=== PATIENT | female | born 1960 | race Caucasian/White ===

== ENCOUNTER 2019-06-13 05:50 | Observation (INO) ==
--- NOTE | 2019-06-09 09:59 | Anesthesiology Consultation ---
Date of Service June 09, 2019 Assessment & Plan (1) Encounter for pre-operative examination: Chart Review Chart Review: Acceptable Risk for Surgery and Patient seen in Pre Admission Testing Teaching & Discussion Instructed NPO after midnight before surgery, except medications with 15 cc of water. Medication instructions provided according to the PAT guidelines. History Surgery Operation Date: 06/13/19 07:30 Proposed Procedures p Abdominoplasty with Brachioplasty - Katya Parks MD Height/Weight Height: 5 ft 6 in Weight: 65.2 kg Allergies Allergy/AdvReac Type Severity Reaction Status Date / Time bupropion [From Wellbutrin] AdvReac suicidal Verified 05/30/19 08:53 Medications Home Medications Medication Instructions Recorded Confirmed Last Taken sertraline 25 mg tablet 25 mg PO QPM 05/26/19 05/30/19 Unknown Bone Broth 1 dose PO DAILY 05/30/19 05/30/19 Unknown Thorp-3 1 dose PO DAILY 05/30/19 05/30/19 Unknown multivitamin 1 tab PO DAILY 05/30/19 05/30/19 Unknown Past Medical History Medical History Anxiety Irritable bowel syndrome with diarrhea Exercise / Class Metabolic Activity 1 > 8 Run/Swim/Ski/Tennis (works out 6 days per week) Past Family History Family History Other No family history of adverse response to anesthesia Past Surgical History Surgical History History of cholecystectomy History of colonoscopy History of esophagogastroduodenoscopy (EGD) History of gastric bypass 8yrs ago, previously dx with ALYSSA, resolved with wt loss. Past Anesthesia History No Hx of Anesthesia Complications and No Family Hx of Anesthesia Complications History of PONV No Hx of PONV and No Hx of Motion Sickness Social History Smoking Status: Former smoker Do You Dip or Chew Tobacco: No Smoking End Date: quit 20 years ago Hx Alcohol Use: Yes alcohol intake frequency: holidays/special occasions only Hx Substance Use: Yes substance use type: marijuana Last Used Substance Other:: 3 weeks ago Review of Systems Pt denies any recent chest pain, shortness of breath, palpitations, cough, fever or URI. Physical Exam Vital Signs BP: 117/63 P: 58bpm SPO2: 98% RA T: 98.1 F R: 156 ENMT Mouth: + dental restorations (upper L implant); no chipped teeth and no loose teeth Thyromental Distance: > or= 3.5 Finger Breadths (3.5) Mallampati Class: I Neck normal visual inspection and + limited neck extension Respiratory normal respiratory effort Auscultation: lungs clear to auscultation bilaterally Cardiovascular Rate/Rhythm: regular rate and regular rhythm Heart Sounds: no murmur Extremities: no edema Testing Laboratory Results 06/09/19 WBC: 4.58 H/H: 12.8/39.6 PLATELETS: 238 SODIUM: 143 POTASSIUM: 4.0 CHLORIDE: 110 CO2: 29 BUN: 23 CREATININE: 0.59 GLUCOSE: 86 PT: 10.7 PTT: 25.4 INR: 1.0 Electrocardiogram Date: 06/09/19 Findings: + SB @ (58bpm)
--- NOTE | 2019-06-09 10:02 | PAT Medication Instructions ---
Medication Instructions Date of Service June 09, 2019 Home Medications sertraline 25 mg tablet 25 mg PO QPM Bone Broth 1 dose PO DAILY Bethany-3 1 dose PO DAILY multivitamin 1 tab PO DAILY STOP taking 2 weeks before surgery If surgery is within 2 weeks, stop taking as soon as possible. Bone Broth 1 dose PO DAILY Bethany-3 1 dose PO DAILY multivitamin 1 tab PO DAILY Take evening before surgery sertraline 25 mg tablet 25 mg PO QPM *THEN NOTHING TO EAT OR DRINK AFTER MIDNIGHT* Other Notes If you have any questions please call us at [phone] or [phone] or [phone] or [phone]
--- NOTE | 2019-06-10 08:15 | Electrocardiogram Report ---
Test Reason : Blood Pressure : / mmHG Vent. Rate : 058 BPM Atrial Rate : 058 BPM P-R Int : 164 ms QRS Dur : 076 ms QT Int : 416 ms P-R-T Axes : 036 066 065 degrees QTc Int : 408 ms Sinus bradycardia Otherwise normal ECG No previous ECGs available Confirmed by Aravind Marin ([id number]) on 06/09/2019 5:43:52 PM Referred By: Katya Parks Confirmed By:Rob Marin
[2019-06-13] MEDS ORDERED: LR 15ML/HR IV SCH (06:00)
[2019-06-13] MEDS ORDERED: CEFAZOLIN 2000MG 2,000 MG/15 ML SYR IV SCH (06:00)
[2019-06-13] MEDS ORDERED: ROCURONIUM BROMIDE 10 MG/ML 5 ML VIAL ONE ×9 (06:53→13:19)
[2019-06-13] MEDS ORDERED: fentaNYL citrate 100 MCG/2 ML VIAL ONE ×3 (06:53→13:52)
[2019-06-13] MEDS ORDERED: MIDAZOLAM HCL 1 MG/ML 2ML VIAL ONE (06:53)
[2019-06-13] MEDS ORDERED: ONDANSETRON INJ 2 MG/ML 2 ML VIAL ONE ×2 (06:53→08:18)
[2019-06-13] MEDS ORDERED: DEXAMETHASONE SOD INJ 4 MG/ML VIAL ONE ×2 (06:53→08:18)
[2019-06-13] MEDS ORDERED: PROPOFOL IV EMULSION 10 MG/ML 20 ML VIAL IV ONE ×2 (06:53→13:51)
[2019-06-13] MEDS ORDERED: GLYCOPYRROLATE 0.2 MG/ML VIAL ONE (06:53)
[2019-06-13] MEDS ORDERED: LIDOCAINE HCL 2% 2 ML VIAL/AMP(20MG/ML) INFIL ONE (06:53)
[2019-06-13] MEDS ORDERED: NEOSTIGMINE METHYLSULFATE 5 MG/5 ML SYR ONE (06:53)
[2019-06-13] MEDS ORDERED: PHENYLEPHRINE 100MCG/ML 5ML SYR IV PRN (07:01)
[2019-06-13] MEDS ORDERED: LABETALOL HCL IV 5 MG/ML 20ML IV PRN (07:01)
[2019-06-13] MEDS ORDERED: MEPERIDINE HCL 25 MG/ML CARP IV PRN (07:01)
[2019-06-13] MEDS ORDERED: ATROPINE SULFATE 0.1 MG/ML 10ML SYR IV PRN (07:01)
[2019-06-13] MEDS ORDERED: fentaNYL citrate 100 MCG/2 ML VIAL IV PRN (07:01)
[2019-06-13] MEDS ORDERED: HYDROmorphone INJ 1 MG/ML SYRINGE IV PRN (07:01)
[2019-06-13] MEDS ORDERED: ePHEDrine sulfate 50 MG/ML AMP IV PRN (07:01)
[2019-06-13] MEDS ORDERED: ONDANSETRON INJ 2 MG/ML 2 ML VIAL IV PRN ×2 (07:01→14:43)
[2019-06-13] MEDS ORDERED: LIDOCAINE/EPINEPHRINE 1% 20 ML VIAL ONE (07:14)
[2019-06-13] MEDS ORDERED: LIDOCAINE HCL 1% 20 ML VIAL ONE (07:14)
[2019-06-13] MEDS ORDERED: EPINEPHrine INJ 1 MG/ML AMP ONE (07:14)
[2019-06-13] MEDS ORDERED: BUPIVACAINE 0.25% 30 ML VIAL ONE (07:15)
--- NOTE | 2019-06-13 07:16 | History & Physical Bridge Note ---
Date of Service June 13, 2019 History & Physical Bridge Note I have examined the patient, reviewed the History & Physical and in the interval since the performance of the History & Physical I have noted the following changes of clinical significance: no changes noted
[2019-06-13] MEDS ORDERED: SCOPOLAMINE 1.5 MG TDSY ONE (07:19)
[2019-06-13] MEDS ORDERED: SCOPOLAMINE 1.5 MG TDSY TD ONE (07:20)
[2019-06-13] MEDS ORDERED: HYDROmorphone INJ 2 MG/ML SYR/VIAL ONE (10:34)
[2019-06-13] MEDS ORDERED: ePHEDrine sulfate 50 MG/ML SYR ONE (11:32)
[2019-06-13] MEDS ORDERED: CEFAZOLIN 2000MG 2,000 MG/15 ML SYR IV STA (13:22)
[2019-06-13] MEDS ORDERED: CEFAZOLIN 250 MG/ML 1 GM VIAL ONE (13:22)
[2019-06-13] MEDS ORDERED: PHENYLEPHRINE 100MCG/ML 5ML SYR ONE (13:24)
[2019-06-13] MEDS ORDERED: ACETAMINOPHEN 1000 MG/100 ML IV IV ONE (14:29)
--- NOTE | 2019-06-13 14:31 | Post Operative Brief Note ---
Immediate Post Op Note v1 Date of Surgery June 13, 2019 Pre & Post Diagnosis Operation Date: 06/13/19 07:30 Pre-Op Diagnosis: Encounter for Cosmetic Surgery Post-Op Diagnosis: Encounter for Cosmetic Surgery I identified the patient and participated in the time-out.: Yes Procedure Operation Date: 06/13/19 07:30 Actual Procedures p Abdominoplasty with Bilateral Brachioplasty - Katya Parks MD Surgeon Katya Parks MD Telegraph Repeater Technician Tiny Eagle PA-C Estimated Blood Loss 50 Findings Consistent with Post-Op Diagnosis Drains Nash Catheter (16fr nash catheter placed by Lashae Orozco RN, without difficulty; nash demonstrates clear yellow urine. Output measured and recorded by anesthesia.) and Terrence-Dietrich Drain (15fr round x4)
[2019-06-13] MEDS ORDERED: PROMETHAZINE HCL 12.5 MG in SODIUM CHLORIDE 0.9% 50 ML IV PRN (14:43)
[2019-06-13] MEDS ORDERED: LORazepam 0.5 MG TAB PO PRN (14:43)
[2019-06-13] MEDS ORDERED: MoRPHine SULFATE 4 MG/ML 1 ML CARP\\VIAL IV PRN ×2 (14:43→15:02)
[2019-06-13] MEDS ORDERED: MoRPHine SULFATE 2 MG/ML CARP IV PRN (14:43)
[2019-06-13] MEDS ORDERED: OXYCODONE/ACETAMINOPHEN 5mg/325mg TAB PO PRN (14:43)
[2019-06-13] MEDS ORDERED: DiphenhydrAMINE HCL 50 MG/ML VIAL IV PRN (14:43)
--- NOTE | 2019-06-13 14:57 | Operative Report ---
PG Post Operative Report Pre & Post Diagnosis Operation Date: 06/13/19 07:30 Pre-Op Diagnosis: Encounter for Cosmetic Surgery Post-Op Diagnosis: Encounter for Cosmetic Surgery I identified the patient and participated in the time-out.: Yes Procedure Operation Date: 06/13/19 07:30 Actual Procedures p Abdominoplasty with Bilateral Brachioplasty(Bilateral) - Katya Parks MD Surgeon Katya Parks MD Can Piler Tiny Eagle PA-C Estimated Blood Loss 50 Findings Consistent with Post-Op Diagnosis Specimens none Description of Procedure Risks, benefits, and alternatives of the procedure were explained to the patient who agreed and signed consent. She was identified and marked in the preoperative holding area. She was brought to the operating room where she was positioned supine and placed under general anesthesia without incident. Anguiano catheter was placed. Surgical site was prepped and draped sterilely. A time-out procedure was performed. I reassessed my markings which included a lower horizontal abdominal incision with the midportion 7 cm above the vulvar commissure. Incision was marked bilaterally to the ASIS. I began by injecting 1% lidocaine with epinephrine along the planned incision. The lower abdominal incision was made using a 15- blade scalpel to incise epidermis and superficial dermis followed by electrocautery to incise deep dermis, subcutaneous fat, Flash's fascia down to the abdominal wall. Care was taken to bevel superiorly in order to avoid encountering the inguinal region. Electrocautery was used to elevate the anterior abdominal skin flap ligating the perforating vessels with 3-0 Vicryl ties and electrocautery. Dissection was carried up to the level of the umbi licus in the midline. At this point, a 15-blade scalpel was used to circumscribe the umbilicus. A vertical midline incision was then made from the incision to the umbilicus and divided in the midline using electrocautery. The umbilicus was then dissected out using electrocautery down to abdominal wall. The umbilical stalk appeared viable throughout the procedure. Dissection was continued superiorly to the xyphoid process, narrowing dissection above the umblicus. Plication of the rectus diastases was performed using 0 Prolene nitdky-cw-vgaay sutures both above and below the umbilicus. A running 0 Prolene suture was used to imbricate the vtlxhv-ap-bitpm sutures and reinforced the repair both above and below the umbilicus. At this point, the bed was flexed and the mid portion of the superior skin flap was inset above the mons pubis using 2-0 Vicryl suture. Skin flaps were marked for excision. A 15-blade scalpel was used to make these incisions and the incision was deepened through dermis, subcutaneous fat, Flash's fat using electrocautery. A 15 Uzbek Pola drains were placed in the wound bed and brought out through a separate stab incision in the mons pubis. The drains were sutured into place using 3-0 nylon. The umbilicus was brought out through an inverted triangular incision in the abdominal wall. This was performed using a 15-blade scalpel. Prior to closure, a total of 10 mL of 0.25% Marcaine plain were injected into the fascia as well as along the incisions. Wound closure was then begun lateral to medial using 2-0 Vicryl Flash's fascia sutures, 2-0 Vicryl deep dermal sutures, 2-0 PDO running superficial Quill suture, 3-0 Monocryl running subcuticular suture. Umbilicus was brought out through the inverted triangle incision and was sutured into place using 4-0 chromic half buried horizontal mattress sutures. The umbilicus was dressed using Xeroform and the incision was dressed using Dermabond Prineo followed by dry dressings and an abdominal binder. Attention was then turned to the brachioplasty portion of the procedure. Markings were reassessed. I considered whether to perform liposuction to the posterior aspect of the arm, but it appeared she mostly had skin laxity, minimal excess adiposity. Lesions were marked just above the bicipital groove and at the dome of the axilla, extending down the lateral chest wall to address skin laxity. 1% lidocaine with epinephrine was used to anesthetize the planned incisions. I began with the left arm. 15 blade scalpel made the upper incision through skin which was deepened using electrocautery through dermis, simultaneous fat, superficial fascia. Dissection of the skin flap was performed above the deep fascia leaving some subcutaneous tissue to protect the median antebrachial cutaneous nerve at the elbow. Similarly, more shallow dissection was performed in the axilla to protect the lymphatics and axillary structures. The incision in the axilla was planned in an L-shape, similar to a Jim incision. The apex of the flap was inset into the axillary dome using 0 Nurolon interrupted sutures to tack the superficial fascial system to the clavicopectoral fascia. Skin resection was then performed in segmental fashion in order to allow for maximal resection with minimal skin tension. This was performed by dividing the skin flaps in segments and tailor tacking these areas to allow for excision. The wound was then temporarily stapled in sequential fashion the arm and along the lateral chest wall. Patient preferred not to have a lateral chest wall incision, however, I did need to extend the anteriormost aspect of the incision into the axilla for about 4 to 5 cm in order to allow for greatest skin resection and to treat the standing cutaneous deformity which was present after reapproximating the incision along the bicipital groove. Once I was satisfied with the skin resection and temporary closure of the left arm, similar procedure was undertaken on the right side. Should be noted the patient had additional excess skin of the left axilla and excess skin of the right arm which was also noted by the patient preoperatively. Once I was satisfied with the skin resection on the left side, temporary closure was performed. MAHESH drains were placed into both wound beds prior to closure. They were sutured into place using 3-0 nylon suture. Quarter percent Marcaine plain was instilled into the drains bilaterally. Simultaneous wound closure was then undertaken on both arms using 2-0 Vicryl superficial fascial sutures, 2-0 Vicryl deep dermal sutures, 3- 0 PDO Quill suture, which was performed in 2 segments so as not to cross the axilla with one continuous running suture. 3-0 Monocryl suture was then run in the subcuticular plane, also in 2 segments. Dermabond Prineo was applied to both incisions. Xeroform was placed around the drains. Dry dressings followed by Channing bandages were placed to the arms, surgical bra to provide some compression to the lateral chest wall. Following the procedure, there was excellent symmetry and contour of both arms. Procedure was tolerated well. The patient was awakened and transferred to the recovery room in satisfactory condition. Tiny Eagle PA-C was present and scrubbed thoughout the entire procedure and was instrumental in retracting, achieving hemostasis and assisting in simultaneous wound closure. I attest to the content of the Intraoperative Record and any orders documented therein. Any exceptions are noted below.
--- NOTE | 2019-06-13 15:26 | Anesthesiology Progress Note ---
Date of Service June 13, 2019 Anesthesia Post Procedure Vital Signs Vital Signs: Temp Pulse Pulse Resp BP BP Pulse Ox 06/13/19 15:15 36.9 C 78 18 112/70 97 06/13/19 15:05 70 13 155/72 H 98 06/13/19 14:55 76 22 119/71 99 06/13/19 14:45 36.5 C 82 18 130/81 100 06/13/19 06:16 36.7 C 65 18 134/93 97 Transfer of Care Handoff Completed per policy Notes Mental Status: alert / awake / arousable Patient Amnestic to Procedure: Yes Nausea / Vomiting: adequately controlled Pain: adequately controlled Airway Patency, RR, SpO2: stable & adequate BP & HR: stable & adequate Hydration State: stable & adequate Anesthetic Complications: no major complications apparent
[2019-06-13] MEDS: D5W AND 1/2NSS + 20MEQ KCL 20 MEQ/1,000 ML BAG IV SCH (16:42)
[2019-06-13] MEDS: CHECK SCOPOLAMINE PATCH PLACEMENT SCH ×3 (16:49→23:42)
[2019-06-13] MEDS: CEFAZOLIN 2000MG 2,000 MG/15 ML SYR IV SCH (17:47)
[2019-06-13] MEDS ORDERED: COUGH DROP (SUGAR FREE) LOZ 24 LOZ/1 BOX BUCCAL ONE (20:52)
[2019-06-13] MEDS ORDERED: SERTRALINE HCL 50 MG TABLET PO SCH (21:00)
[2019-06-13] MEDS: OXYCODONE/ACETAMINOPHEN 5mg/325mg TAB PO PRN (23:40)
[2019-06-14] MEDS: CEFAZOLIN 2000MG 2,000 MG/15 ML SYR IV SCH (00:02)
[2019-06-14] MEDS: D5W AND 1/2NSS + 20MEQ KCL 20 MEQ/1,000 ML BAG IV SCH (03:49)
[2019-06-14] MEDS: OXYCODONE/ACETAMINOPHEN 5mg/325mg TAB PO PRN (06:41)
--- NOTE | 2019-06-14 08:12 | Surgery Progress Note ---
Date of Service June 14, 2019 Assessment & Plan (1) Encounter for cosmetic surgery: Doing well s/p abdominoplasty and bilateral brachioplasty. D/C home today, f/u in office tomorrow. Subjective Patient is resting comfortably and voices no concerns. Physical Exam Constitutional: WD/WN, vitals as above no acute distress Skin: + incision (dressings in place, drains with serosang output) Results & Data Vital Signs (Past 12 Hours) Vital Signs Temp Pulse Pulse Resp BP BP Pulse Ox 06/14/19 07:36 37.4 C 71 20 116/77 97 06/14/19 03:53 36.9 C 73 16 102/67 96 06/13/19 23:06 37.0 C 72 16 107/71 94 PG Care Time/CCT Total # of Minutes Spent Total Time Spent with Patient: Total time spent is greater than 50% in coordination of care (as documented) at patient's floor/unit and/or counseling patient:
[2019-06-14] MEDS ORDERED: MULTIVITAMIN TAB PO SCH (09:00)
[2019-06-14] MEDS ORDERED: ENOXAPARIN INJ 40 MG/0.4 ML SYR SQ SCH (09:00)
[2019-06-14] MEDS: CHECK SCOPOLAMINE PATCH PLACEMENT SCH (09:04)
--- NOTE | 2019-06-14 11:04 | Anesthesiology Progress Note ---
Date of Service June 14, 2019 Anesthesia Post Procedure Vital Signs Vital Signs: Temp Pulse Pulse Pulse Resp BP BP 06/14/19 08:47 37.4 C 71 20 116/77 06/14/19 07:36 37.4 C 71 20 116/77 06/14/19 03:53 36.9 C 73 16 102/67 06/13/19 23:06 37.0 C 72 16 107/71 06/13/19 19:38 36.6 C 83 16 110/74 06/13/19 17:59 74 16 97/65 L 06/13/19 17:02 36.3 C L 77 16 94/63 L 06/13/19 16:30 36.3 C L 77 12 98/66 L 06/13/19 16:00 36.8 C 91 H 16 100/67 06/13/19 15:45 36.9 C 71 16 98/66 L 06/13/19 15:35 36.9 C 85 15 103/59 L 06/13/19 15:25 36.9 C 68 18 102/61 06/13/19 15:15 36.9 C 78 18 112/70 06/13/19 15:05 70 13 155/72 H 06/13/19 14:55 76 22 119/71 06/13/19 14:45 36.5 C 82 18 130/81 Pulse Ox 06/14/19 08:47 97 06/14/19 07:36 97 06/14/19 03:53 96 06/13/19 23:06 94 06/13/19 19:38 97 06/13/19 17:59 95 06/13/19 17:02 96 06/13/19 16:30 95 06/13/19 16:00 96 06/13/19 15:45 97 06/13/19 15:35 98 06/13/19 15:25 98 06/13/19 15:15 97 06/13/19 15:05 98 06/13/19 14:55 99 06/13/19 14:45 100 Pain Intensity Right Arm: Pain Intensity: 5 Notes Mental Status: alert / awake / arousable and participated in evaluation Patient Amnestic to Procedure: Yes Nausea / Vomiting: adequately controlled Pain: adequately controlled Airway Patency, RR, SpO2: stable & adequate BP & HR: stable & adequate Hydration State: stable & adequate Anesthetic Complications: no major complications apparent
--- NOTE | 2019-06-14 12:15 | Discharge Summary ---
Date of Service June 14, 2019 Admission HPI Per Admitting Provider see admission H&P Admission Exam Per Admitting Provider see admission H&P Principal Diagnosis encounter for cosmetic surgery Discharge Exam Constitutional WD/WN, vitals as above no acute distress Skin + incision (dressings in place, drains with serosang output) Discharge Data Allergies Allergy/AdvReac Type Severity Reaction Status Date / Time bupropion [From Wellbutrin] AdvReac suicidal Verified 06/13/19 06:06 Procedures Performed Operation Date: 06/13/19 07:30 Actual Procedures p Abdominoplasty with Bilateral Brachioplasty(Bilateral) - Katya Parks MD Hospital Course (1) Encounter for cosmetic surgery: Patient presented to [facility] with history of excess skin of her arms adn abdomen. She was taken to the OR and underwent bilateral brachioplasty and abdominoplasty. There were no intraoperative complications. She was taken to recovery and transferred to med/surg for observation. On POD#1, she was feeling well. She was tolerating a regular diet and ambulating. She was able to void after catheter was removed. On exam, her vitals were stable. Her incisions were CDI. Her drains had appropriate output. She was discharged home with instructions to follow-up in the office in one day. Total Time Total Time Spent Total Time Spent (In Minutes): 15 Total Time Includes: Examination of the Patient, Discharge Planning, Medication Reconciliation and Communication With Other Providers Discharge Plan Discharge Items Patient Disposition: Home - Self-Care Reason For Visit: Encounter for Cosmetic Surgury Discharge Diagnosis: s/p abdominoplasty and brachioplasty Activity: As commented below Non-emergency contact: Surgeon Call non-emergency contact if: you have any medication questions, your pain is not controlled, you have a fever, your wound has increased redness and your wound has increased drainage Follow-up/Referrals: Hugh Palencia MD [Primary Care Provider] - Diet: Regular Addtl Attending Provider Instructions: ACTIVITY RECOMMENDATIONS: __Normal activities _x_No bending, lifting or straining. Do no stand straight until it is easily comfortable to do so __No driving _x_Driving allowed when you are off pain medications and you feel safe _x_Walking permitted __You should have help at home for ___ days DRESSINGS: __No dressings required _x_Keep dressings dry/in place until first office visit __Remove dressings ___ and leave dressings off __Apply ice ___ days __Remove dressings and reapply garment __Apply antibiotic ointment (Bacitracin, Neosporin, etc) to wounds 3-4 times/day for 10 days BATHING: _x_Keep dressings dry _x_Sponge bathing permitted __Showering permitted _x_No swimming, hot tubs or soaking in a tub MEDICATIONS: Resume previous medications unless instructed otherwise by your surgeon. _x_Do not use aspirin, Motrin, Advil or Ibuprofen as these may promote bleeding. Please use Tylenol. _x_Prescription(s) provided: pain medication was provided at your pre-op H&P office visit OTHER INSTRUCTIONS: _x_Record drain output 2-3 times per day. Drains are ready to be removed with output is 10cc/24 hours for 2 days SPECIAL CARE INSTRUCTIONS: * It is normal to have a mild fever after surgery. If your temperature is higher than 101.5 degrees F, please call the office at [phone]. * Constipation is a typical side effect of pain medication. An etwm-qcl-yqxwehu stool softener will help relieve this. * Leaking around surgical drains may occur and should not cause concern. Sometimes these drains become clogged. If this happens, remove the bulb and milk the clot out of the tube, then replace the bulb. * Drainage from wounds after liposuction is normal and should be expected. Garments will become soiled. You should protect furniture and bedding. This drainage should mostly subside within 2-3 days. Leave garments in place unless instructed to remove them. * If you have unusual drainage from a wound or are concerned you have an infection or have any questions or concerns, please call the office at [phone]. FOLLOW UP VISIT: If not already scheduled, please call the office, , when you return home after surgery to schedule an appointment to be seen in __1_ days. Pending Studies at Discharge: No Stand-Alone Forms: My [employer], Smoking Cessation Medications and DC Order Prescriptions: Continued sertraline [Zoloft] 25 mg tablet 25 mg PO QPM RF: 0 multivitamin Tablet 1 tab PO DAILY RF: 0 Bone Broth 1 dose PO DAILY RF: 0 melatonin 10 mg Capsule 10 mg PO HS PRN (Reason: Sleep) RF: 0 Discontinued Rough And Ready-3 1 dose PO DAILY RF: 0 No Action oxycodone-acetaminophen [Endocet] 5-325 mg tablet 1 tab PO Q4H PRN (Reason: pain) Qty: 18 RF: 0 Discharge Orders: Discharge Order (Routine); Ordered 06/14/19 Ordered By: Erma Diggs Admission Data Admit Date/Time: 06/13/19 15:01 Attending Provider: Katya Parks Admit Provider: Katya Parks Primary Care Provider: Hugh Palencia Other Interventions: Discharge Summary Assessment (RN) Last Done: 06/14/19 08:47 DC Date/Time DO NOT enter until pt leaves facility: 06/14/19 10:29
== END 2019-06-14 10:29 | disposition home or self-care (01) ==
LOC: 3N 05:50 → ASU 05:50

== ENCOUNTER 2023-11-03 14:26 | Inpatient (IN) ==
[2023-11-03 15:13] LABS: Basophils # (auto) 0.04 K/uL (0.00-0.20); Basophils % (auto) 0.5 %; Hematocrit (blood only) 36.6 % (37.0-47.0); Hemoglobin 11.6 g/dl (12.0-16.0); Immature Granulocytes # (auto) 0.03 K/uL (0.01-0.20); Immature Granulocytes % (auto) 0.4 %; Lymphocytes # (auto) 0.81 K/uL (1.20-3.40); Lymphocytes % (auto) 9.8 %; Mean Corpuscular Hemoglobin 22.4 pg (25.0-34.0); Mean Corpuscular Hgb Conc 31.7 g/dL (32.0-36.0); Mean Corpuscular Volume 70.8 fL (80.0-100.0); Mean Platelet Volume 9.8 fL (9.4-12.4); Monocytes # (auto) 0.19 K/uL (0.11-0.59); Monocytes % (auto) 2.3 %; Neutrophils # (auto) 7.16 K/uL (1.40-6.50); Platelet Count 453 K/uL (130-400); RDW Coefficient of Variation 18.5 % (11.5-14.5); RDW Standard Deviation 44.8 fL (36.4-46.3); Red Blood Count 5.17 M/uL (4.20-5.40); White Blood Count 8.23 K/ul (4.8-10.8)
[2023-11-03 15:24] LABS: Albumin Globulin Ratio 1.5 (0.9-2); Albumin Level 4.6 gm/dl (3.4-5.0); Bilirubin,Total 0.4 mg/dl (0.2-1.0); Calcium 9.4 mg/dl (8.6-10.3); Creatinine Clr Calc Pharmacy 101.8 ml/min; Est GFR (African American) 119.4 ml/min; Globulin 3.1 gm/dl (2.5-4.0); Potassium 3.9 mmol/L (3.5-5.1); Total Protein 7.7 gm/dl (6.0-8.3)
[2023-11-03 15:31] LABS: Troponin I High Sensitivity 3.1 pg/ml (0-14)
[2023-11-03 15:41] LABS: Partial Thromboplastin Ratio 0.9; Partial Thromboplastin Time 24 Seconds (21-31); Prothrombin Time 10.6 Seconds (9.0-12.0)
--- NOTE | 2023-11-03 15:58 | XRay Report ---
SINGLE VIEW CHEST CLINICAL HISTORY: Atypical chest pain FINDINGS: An AP upright chest radiograph is compared to study dated 01/28/2008. The cardiomediastinal silhouette is unremarkable. The lungs and pleural spaces are clear. No pneumothorax is seen. The bony thorax is grossly intact. Cholecystectomy clips are noted in the right upper quadrant. Suture materi al projects over the left upper quadrant. IMPRESSION: No active disease in the chest. ACT 112: Negative or not required by law. Electronically signed by: Bjorn Troncoso M.D. 11/03/2023 3:57 PM
--- NOTE | 2023-11-03 16:11 | Emergency Department Note ---
Impression & Plan Partial bowel obstruction, Abdominal pain, Anemia, Vomiting ED Provider Note NAME: LALA ALBERTO AGE: 63 SEX: F : 1960 ARRIVES VIA: Walk-In INFORMANT: Patient ED PROVIDER(S): Slick Restrepo DO CHIEF COMPLAINT: abdominal pain HPI: Patient is a 63-year-old female who presents the ER for epigastric abdominal pain which has been present for the past 3 days. She has had this once before but it resolved on its own. Pain has now migrated diffusely throughout the whole belly. Previous abdominal surgeries include a gastric bypass. She denies any headache or change in vision. No chest pain or shortness of breath. No dysuria, urgency, or frequency. No other exacerbating or remitting factors. ADDITIONAL HISTORY OBTAINED: Per HPI Chronic Medical/Social Conditions Affecting Care: Per HPI PAST MEDICAL HISTORY:See Below PAST SURGICAL HISTORY:See Below FAMILY HISTORY:See Below SOCIAL HISTORY:See Below HOME MEDICATIONS:See Below ALLERGIES:See Below VITALS:See Below PHYSICAL EXAMINATION: GENERAL: Sitting up in bed, alert, well appearing, well nourished, no distress, non-toxic EYE EXAM: normal conjunctiva. PERRL and EOM's grossly intact. OROPHARYNX: no exudate, no erythema, lips, buccal mucosa, and tongue normal and mucous membranes are moist NECK: supple, no nuchal rigidity, no adenopathy, non-tender LUNGS: Clear to auscultation. Normal chest wall mechanics HEART: no murmurs, S1 normal and S2 normal ABDOMEN: abdomen soft, non-tender, normo-active bowel sounds, no masses, no rebound or guarding. BACK: Back is symmetrical on inspection and there is no deformity, no midline tenderness, no CVA tenderness. SKIN: no rashes and no bruising UPPER EXTREMITIES: upper extremities are grossly normal. LOWER EXTREMITIES: No pitting edema. NEURO EXAM: Normal sensorium, cranial nerves II-XII grossly intact, normal speech, no gross weakness of arms, no gross weakness of legs. No drift. Finger to nose intact. Gross sensation intact. MEDICAL DECISION MAKING: Patient is a 63-year-old female who presents ER for the above-stated complaint. IV was established blood work was obtained. She has a history of a previous gastric bypass. Labs show no significant leukocytosis but a mild anemia 11.6. INR unremarkable. BMP along LFTs bilirubin and troponin was negative. CT abdomen pelvis shows a partial bowel obstruction. KUB was obtained and shows NG tube in place. Discussed with Dr. Melchor from [facility] he accepted the patient in transfer but notes that this does not need to occur emergently as it is nonsurgical at this time after he reviewed the images. Transfer center will not have a bed for least today and he agreed with admission to [facility]. Discussed with our surgeon Pola as well as the hospitalist for admission and close monitoring. Patient was given IV fluids morphine and Zofran. She was updated at bedside. Consults/Care Managements Discussions: Per [facility] Triage Nursing notes reviewed. Limited review of prior medical records performed Vital Signs: reviewed and remarkable for no significant abnormalities Differential diagnosis: Differential diagnoses includes but is not limited to gastritis, peptic ulcer disease, GERD, gallbladder disease, pancreatitis, small bowel obstruction, appendicitis, diverticulitis, hernia, urinary tract infection, torsion, /ectopic (if female), perforation, trauma, infectious. ER treatment provided: See below Diagnostics interpreted by me include EKG and cardiac monitoring as listed below: -Cardiac Monitoring: An order was placed for continuous cardiac monitoring. The monitor shows a rate of 80 with sinus rhythm. -ECG: none -Laboratory studies:Interpreted by me as stated above in MDM and shown below. Imaging studies: Xrays: As interpreted by me: KUB shows NG tube in place in the stomach CTs show: CT abdomen pelvis as described above Procedures:none Critical Care: None Past Med/Surg History Problem List (Updated 11/03/23 @ 21:16 by Slick Restrepo DO) Vomiting (Acute) Anemia (Acute) Abdominal pain (Acute) Partial bowel obstruction (Acute) Small bowel obstruction Facial laceration Medical History (Updated 11/03/23 @ 21:16 by Slick Restrepo DO) Cystic fibrosis carrier Irritable bowel syndrome with diarrhea Anxiety Surgical History H/O abdominoplasty (06/14/19) and brachioplasty History of cholecystectomy History of gastric bypass 8yrs ago, previously dx with ALYSSA, resolved with wt loss. History of esophagogastroduodenoscopy (EGD) History of colonoscopy Family History Other No family history of adverse response to anesthesia Social History Smoking Status: Never smoker Second Hand Exposure: Yes (as a child); Do You Dip or Chew Tobacco: No; Hx Alcohol Use: Yes Hx Substance Use: Yes Last Used Substance Other:: 3 weeks ago Preferred Language: Slovenian Communication Ability: Effective Spinner Hand Required: No Beliefs That Will Affect Care: None Current Living Situation: Spouse Feels Safe at Home: Yes Assistive Devices: None Allergies Allergies Allergy/AdvReac Type Severity Reaction Status Date / Time bupropion [From Wellbutrin] AdvReac suicidal Verified 11/03/23 17:05 Home Meds Home Medications Medication Instructions Recorded Confirmed multivitamin 1 tab PO DAILY 05/30/19 11/03/23 melatonin 10 mg capsule 10 mg PO HS PRN Sleep 06/13/19 11/03/23 alendronate 70 mg tablet 70 mg PO WK 11/03/23 11/03/23 dextroamphetamine-amphetamine ER 20 mg PO QAM 11/03/23 11/03/23 20 mg 24hr capsule,extend release escitalopram oxalate 20 mg tablet 20 mg PO DAILY 11/03/23 11/03/23 propranolol 20 mg tablet 20 mg PO .EVERY 24 HOURS PRN 11/03/23 11/03/23 Anxiety Results & Data (ED) Vital Signs Vital Signs - 24 hr 11/03/23 14:33 11/03/23 16:27 11/03/23 18:04 Temperature 36.7 C Temperature Source Temporal Artery Scan Pulse Rate 75 77 Pulse Rate [Apical] 85 Pulse Strength [Apical] Normal Respiratory Rate 18 19 Respiratory Effort / Characteristics Non-Labored Spontaneous Non-Labored Spontaneous Respiratory Depth Normal Normal Respiratory Pattern Regular Blood Pressure 140/77 Blood Pressure [Right Arm] 140/62 Blood Pressure Mean 98 Blood Pressure Mean [Right Arm] 88 Blood Pressure Position Sitting Pulse Oximetry 99 100 Oxygen Delivery Method Room Air Room Air Sepsis Recent Fever Within 48 Hours No Sepsis New/Unexplained Change in Mental Status No Sepsis Action Taken by Nursing No Action Required 11/03/23 18:05 11/03/23 20:10 11/03/23 20:16 Temperature Temperature Source Pulse Rate 82 Pulse Rate [Apical] 78 Pulse Strength [Apical] Respiratory Rate 19 Respiratory Effort / Characteristics Non-Labored Spontaneous Respiratory Depth Normal Respiratory Pattern Regular Blood Pressure Blood Pressure [Right Arm] 119/79 Blood Pressure Mean Blood Pressure Mean [Right Arm] 92 Blood Pressure Position Pulse Oximetry 100 98 Oxygen Delivery Method Room Air Room Air Sepsis Recent Fever Within 48 Hours Sepsis New/Unexplained Change in Mental Status Sepsis Action Taken by Nursing 11/03/23 21:07 Temperature Temperature Source Pulse Rate Pulse Rate [Apical] 78 Pulse Strength [Apical] Respiratory Rate 18 Respiratory Effort / Characteristics Non-Labored Spontaneous Respiratory Depth Normal Respiratory Pattern Regular Blood Pressure Blood Pressure [Right Arm] 129/77 Blood Pressure Mean Blood Pressure Mean [Right Arm] 94 Blood Pressure Position Pulse Oximetry 100 Oxygen Delivery Method Room Air Sepsis Recent Fever Within 48 Hours Sepsis New/Unexplained Change in Mental Status Sepsis Action Taken by Nursing Laboratory Data 11/03/23 14:42 11/03/23 14:42 Lab Results 11/03/23 Range/Units 14:42 WBC 8.23 (4.8-10.8) K/ul RBC 5.17 (4.20-5.40) M/uL Hgb 11.6 L (12.0-16.0) g/dl Hct 36.6 L (37.0-47.0) % MCV 70.8 L (80.0-100.0) fL MCH 22.4 L (25.0-34.0) pg MCHC 31.7 L (32.0-36.0) g/dL RDW Std Deviation 44.8 (36.4-46.3) fL RDW Coeff of Ritika 18.5 H (11.5-14.5) % Plt Count 453 H (130-400) K/uL MPV 9.8 (9.4-12.4) fL Immature Gran % (Auto) 0.4 % Neut % (Auto) 87.0 % Lymph % (Auto) 9.8 % [place] % (Auto) 2.3 % Eos % (Auto) 0.0 % Baso % (Auto) 0.5 % Neut # (Auto) 7.16 H (1.40-6.50) K/uL Lymph # (Auto) 0.81 L (1.20-3.40) K/uL [place] # (Auto) 0.19 (0.11-0.59) K/uL Eos # (Auto) 0.00 (0.00-0.50) K/uL Baso # (Auto) 0.04 (0.00-0.20) K/uL Immature Gran # (Auto) 0.03 (0.01-0.20) K/uL PT 10.6 (9.0-12.0) Seconds INR 1.0 (0.9-1.1) APTT 24 (21-31) Seconds PTT Ratio 0.9 Sodium 136 (136-145) mmol/L Potassium 3.9 (3.5-5.1) mmol/L Chloride 103 (98-107) mmol/L Carbon Dioxide 22 (21-32) mmol/L Anion Gap 11 (3-11) BUN 15 (6-23) mg/dl Creatinine 0.50 L (0.6-1.2) mg/dl Est Cr Clr Drug Dosing 101.8 ml/min Est GFR ( Amer) 119.4 ml/min Est GFR (Non-Af Amer) 103.0 ml/min BUN/Creatinine Ratio 30.0 H (10-20) Glucose 151 H (70-99(Fasting)) mg/dl Calcium 9.4 (8.6-10.3) mg/dl Total Bilirubin 0.4 (0.2-1.0) mg/dl AST 29 (13-39) U/L ALT 21 (7-52) U/L Alkaline Phosphatase 98 (34-104) U/L Troponin I High Sens 3.1 (0-14) pg/ml Total Protein 7.7 (6.0-8.3) gm/dl Albumin 4.6 (3.4-5.0) gm/dl Globulin 3.1 (2.5-4.0) gm/dl Albumin/Globulin Ratio 1.5 (0.9-2) Administered Medications Lactated Ringer's (Lr) 1,000 mls @ 100 mls/hr IV .Q10H MIKIE Stop: 11/04/23 16:44 Last Admin: 11/03/23 21:08 Dose: 100 mls/hr Documented By: KVNG Discontinued Medications Sodium Chloride (Nss) 1,000 mls @ 999 mls/hr IV .Q1H1M ONE Stop: 11/03/23 17:07 Last Infusion: 11/03/23 18:36 Dose: Infused Documented By: Admin: 11/03/23 16:20 Dose: 999 mls/hr Documented By: KVNG Ioversol (Optiray 320 100ml) 94 ml IV ONCE ONE Stop: 11/03/23 16:41 Last Admin: 11/03/23 16:40 Dose: 94 ml Documented By: GREY Morphine Sulfate (Morphine Sulfate 4 Mg/Ml 1 Ml Carp\Vial) 4 mg IV NOW STA Stop: 11/03/23 16:08 Last Admin: 11/03/23 16:21 Dose: 4 mg Documented By: KVNG Morphine Sulfate (Morphine Sulfate 10 Mg/Ml Carp/Vial) 6 mg IV NOW STA Stop: 11/03/23 17:42 Last Admin: 11/03/23 18:03 Dose: 6 mg Documented By: KVNG Ondansetron HCl (Ondansetron Inj 2 Mg/Ml 2 Ml Vial) 4 mg IV NOW STA Stop: 11/03/23 16:08 Last Admin: 11/03/23 16:18 Dose: 4 mg Documented By: KVNG Ondansetron HCl (Ondansetron Inj 2 Mg/Ml 2 Ml Vial) 4 mg IV NOW STA Stop: 11/03/23 17:42 Last Admin: 11/03/23 18:03 Dose: 4 mg Documented By: KVNG Imaging Data Radiologist's Impression: Chest X-Ray 11/03/23 14:36 SINGLE VIEW CHEST CLINICAL HISTORY: Atypical chest pain FINDINGS: An AP upright chest radiograph is compared to study dated 01/28/2008. The cardiomediastinal silhouette is unremarkable. The lungs and pleural spaces are clear. No pneumothorax is seen. The bony thorax is grossly intact. Cholecystectomy clips are noted in the right upper quadrant. Suture material projects over the left upper quadrant. IMPRESSION: No active disease in the chest. ACT 112: Negative or not required by law. Electronically signed by: Bjorn Troncoso M.D. 11/03/2023 3:57 PM Abdomen/Pelvis CT 11/03/23 16:07 CT abd pelvis IV con only CLINICAL HISTORY: epigastric and diffuse abd pain TECHNIQUE: Helical axial images of the abdomen and pelvis were obtained and displayed. Automated dose lowering techniques and/or adjustment according to patient size were utilized for this exam. This exam was performed with intravenous contrast. CT DOSE: 541.28 mGy.cm COMPARISON: None available at the time of this dictation. FINDINGS: Lower chest: No acute abnormality. Liver: Unremarkable. No focal lesions are seen. Gallbladder and biliary tree: Patient is status post cholecystectomy. Physiologic prominence of the biliary ducts is noted. Pancreas: Unremarkable, no focal lesions. Spleen: Unremarkable. Adrenals: Unremarkable. Kidneys and ureters: Left angiomyolipoma noted. Bladder: Unremarkable. Reproductive organs: Unremarkable. Bowel: Diverticulosis is seen without evidence of diverticulitis. Postsurgical changes are seen of gastric bypass. There is focal dilation of the portion of small bowel just proximal to the anastomosis in the left upper quadrant, measuring up to 46 mm in diameter. The distal bowel is not under distended. Lymph nodes Retroperitoneal: Unremarkable. Pelvic: Unremarkable. Mesenteric: Unremarkable. Peritoneum: Normal. Vessels: Unremarkable. Abdominal wall: Unremarkable. Bones: Degenerative changes in the visualized spine. IMPRESSION: Partial small bowel obstruction with a transition point at the anastomosis of the Galdino-en-Y gastric bypass in the left upper quadrant. Otherwise no acute abnormalities are seen. ACT 112: Negative or not required by law. Electronically signed by: Bolivar Melchor M.D. 11/03/2023 5:05 PM KUB X-Ray 11/03/23 17:41 XR KUB/Abdomen 1 view CLINICAL HISTORY: ng tube TECHNIQUE: 1 view of the abdomen was obtained. Comparison: Comparison is made to CT abdomen pelvis 11/03/2023 FINDINGS: Enteric tube tip and side-port lie below the diaphragm. The osseous structures are grossly unremarkable., Gas pattern is not completely evaluated. IMPRESSION: Satisfactory positioning of the enteric tube. ACT 112: Negative or not required by law. Electronically signed by: Bolivar Melchor M.D. 11/03/2023 7:20 PM Discharge Plan Visit Data Chief Complaint: Vomiting Stated Complaint: VOMIT ED Provider: Slick Restrepo Discharge Problem: Partial bowel obstruction, Abdominal pain, Anemia, Vomiting Forms Stand Alone Forms: My [facility] Prescriptions Prescriptions: No Action multivitamin Tablet 1 tab PO DAILY melatonin 10 mg Capsule 10 mg PO HS PRN (Reason: Sleep) alendronate 70 mg tablet 70 mg PO WK Rx Instructions: take for 28 days....ordered 10/14/23 escitalopram oxalate 20 mg tablet 20 mg PO DAILY propranolol 20 mg tablet 20 mg PO .EVERY 24 HOURS PRN (Reason: Anxiety) dextroamphetamine-amphetamine 20 mg capsule,extended release 24hr 20 mg PO QAM Referrals Referrals: Hugh Palencia MD [Outside Practitioners] - Discharge Problem: Partial bowel obstruction Qualifiers: Intestinal obstruction type: unspecified Qualified Code(s): K56.600 - Partial intestinal obstruction, unspecified as to cause Abdominal pain Qualifiers: Abdominal location: unspecified location Qualified Code(s): R10.9 - Unspecified abdominal pain Anemia Qualifiers: Anemia type: unspecified type Qualified Code(s): D64.9 - Anemia, unspecified Vomiting Qualifiers: Vomiting type: unspecified Nausea presence: unspecified Qualified Code(s): R 11.10 - Vomiting, unspecified
[2023-11-03] MEDS: ONDANSETRON INJ 2 MG/ML 2 ML VIAL IV STA ×2 (16:18→18:03)
[2023-11-03] MEDS: SODIUM CHLORIDE 0.9% 1,000 ML IV ONE (16:20)
[2023-11-03] MEDS: MoRPHine SULFATE 4 MG/ML 1 ML CARP\\VIAL IV STA (16:21)
[2023-11-03] MEDS: OPTIRAY 320 100ml IV ONE (16:40)
--- NOTE | 2023-11-03 17:06 | CT Scan Report ---
CT abd pelvis IV con only CLINICAL HISTORY: epigastric and diffuse abd pain TECHNIQUE: Helical axial images of the abdomen and pelvis were obtained and displayed. Automated dose lowering techniques and/or adjustment according to patient size were utilized for this exam. This e xam was performed with intravenous contrast. CT DOSE: 541.28 mGy.cm COMPARISON: None available at the time of this dictation. FINDINGS: Lower chest: No acute abnormality. Liver: Unremarkable. No focal lesions are seen. Gallbladder and biliary tree: Patient is status post cholecystectomy. Physiologic prominence of the b iliary ducts is noted. Pancreas: Unremarkable, no focal lesions. Spleen: Unremarkable. Adrenals: Unremarkable. Kidneys and ureters: Left angiomyolipoma noted. Bladder: Unremarkable. Reproductive organs: Unremarkable. Bowel: Diverticulosis is seen without evidence of diverticulitis. Postsurgical changes are seen of ga stric bypass. There is focal dilation of the portion of small bowel just proximal to the anastomosis in the left upper quadrant, measuring up to 46 mm in diameter. The distal bowel is not under distende d. Lymph nodes Retroperitoneal: Unremarkable. Pelvic: Unremarkable. Mesenteric: Unremarkable. Peritoneum: Normal. Vessels: Unremarkable. Abdominal wall: Unremarkable. Bones: Degenerative changes in the visualized spine. IMPRESSION: Partial small bowel obstruction with a transition point at the anastomosis of the Galdino-en-Y gastric b ypass in the left upper quadrant. Otherwise no acute abnormalities are seen. ACT 112: Negative or not required by law. Electronically signed by: Bolivar Melchor M.D. 11/03/2023 5:05 PM
--- NOTE | 2023-11-03 17:55 | Electrocardiogram Report ---
Test Reason : Blood Pressure : / mmHG Vent. Rate : 072 BPM Atrial Rate : 072 BPM P-R Int : 128 ms QRS Dur : 076 ms QT Int : 416 ms P-R-T Axes : 020 066 057 degrees QTc Int : 455 ms Normal sinus rhythm with sinus arrhythmia Possible Old Septal infarct Abnormal ECG When compared with ECG of 09-JUN-2019 10:02, Borderline Criteria for Septal infarct is now Present Confirmed by Jonel Dean ([id number]) on 11/03/2023 5:54:26 PM Referred By: Confirmed By:Jonel Dean
[2023-11-03] MEDS: MoRPHine SULFATE 10 MG/ML CARP/VIAL IV STA (18:03)
--- NOTE | 2023-11-03 19:21 | XRay Report ---
XR KUB/Abdomen 1 view CLINICAL HISTORY: ng tube TECHNIQUE: 1 view of the abdomen was obtained. Comparison: Comparison is made to CT abdomen pelvis 11/03/2023 FINDINGS: Enteric tube tip and side-port lie below the diaphragm. The osseous structures are grossly unremarkab le., Gas pattern is not completely evaluated. IMPRESSION: Satisfactory positioning of the enteric tube. ACT 112: Negative or not required by law. Electronically signed by: Bolivar Melchor M.D. 11/03/2023 7:20 PM
--- NOTE | 2023-11-03 19:23 | Hospitalist Consultation ---
Date of Consultation November 03, 2023 History of Present Illness Reason for Consultation: Medical Management Requesting Physician: Slick Restrepo Attending Physician: Mathieu Castaneda History of Present Illness Otilia is a 63F w/ PMH of gastric bypass, Allergies Allergy/AdvReac Type Severity Reaction Status Date / Time bupropion [From Wellbutrin] AdvReac suicidal Verified 11/03/23 17:05 Home Medications Medication Instructions Recorded Confirmed Type multivitamin 1 tab PO DAILY 05/30/19 11/03/23 History melatonin 10 mg capsule 10 mg PO HS PRN Sleep 06/13/19 11/03/23 History alendronate 70 mg tablet 70 mg PO WK 11/03/23 11/03/23 History dextroamphetamine-amphetamine ER 20 mg PO QAM 11/03/23 11/03/23 History 20 mg 24hr capsule,extend release escitalopram oxalate 20 mg tablet 20 mg PO DAILY 11/03/23 11/03/23 History propranolol 20 mg tablet 20 mg PO .EVERY 24 HOURS PRN 11/03/23 11/03/23 History Anxiety Patient History Medical History Cystic fibrosis carrier Irritable bowel syndrome with diarrhea Anxiety Surgical History H/O abdominoplasty (06/14/19) and brachioplasty History of cholecystectomy History of gastric bypass 8yrs ago, previously dx with ALYSSA, resolved with wt loss. History of esophagogastroduodenoscopy (EGD) History of colonoscopy Family History Other No family history of adverse response to anesthesia Social History Smoking Status: Never smoker Second Hand Exposure: Yes (as a child); Do You Dip or Chew Tobacco: No; Hx Alcohol Use: Yes Hx Substance Use: Yes Last Used Substance Other:: 3 weeks ago Preferred Language: French Communication Ability: Effective Caramel Cutter Machine Required: No Beliefs That Will Affect Care: None Current Living Situation: Spouse Feels Safe at Home: Yes Assistive Devices: None Results & Data Results & Data Vital Signs (Past 12 Hours) Vital Signs Temp Pulse Pulse Resp BP BP Pulse Ox 11/03/23 18:05 100 11/03/23 18:04 85 19 140/62 100 11/03/23 16:27 77 11/03/23 14:33 36.7 C 75 18 140/77 99 O2 Del Method 11/03/23 18:05 Room Air 11/03/23 18:04 Room Air 11/03/23 16:27 11/03/23 14:33 Room Air
--- NOTE | 2023-11-03 19:43 | History & Physical Report ---
"Date of Service November 03, 2023 Assessment & Plan (1) Small bowel obstruction: (2) History of gastric bypass: (3) Irritable bowel syndrome with diarrhea: (4) Anxiety: (5) Cystic fibrosis carrier: Plan Otilia is a 63F w/ PMH of anxiety, gastric bypass, and CF gene carrier status who presents for evaluation of abdominal pain and nausea. Small Bowel Obstruction | Hx of Gastric Bypass Surgery - Patient presenting w/ acute abdominal pain, nausea, and emesis - CXR negative - CTAP showing partial small bowel obstruction with a transition point at the anastomosis of the Galdino-en-Y gastric bypass in the left upper quadrant. - CBC/CMP unremarkable - S/p placement of NGT in ED, now draining bilious fluid - [facility] [place] regarding patient's SBO in setting of gastric bypass [facility] surgical team noted that these often resolve independently w/o surgical intervention, but encouraged inpt monitoring Patient remains pending transfer - [facility] surgery consulted while admitted [facility] recommended ongoing NPO and IVF Supported transfer given transition site near gastric bypass anastomosis - Continue NPO and bowel rest - Ongoing IVF at maintenance rate - Pain management with Morphine - Nausea management with Zofran Chronic Conditions - Anxiety: medication on hold while NPO - Osteoporosis: medication on hold while NPO - ADD: medication on hold while NPO FEN: NPO, IVF @ 100 ml/hr Code status: Full Code DVT ppx: SCDs Isolation: None Dispo:Med/Surg pending [place] [facility] History of Present Illness Primary Care Provider: Tiffanie Hall Fly Bingham is a 63F w/ PMH of anxiety, gastric bypass, and CF gene carrier status who presents for evaluation of abdominal pain and nausea. Patient notes that she was on vacation 2 weeks ago and noticed that she was having some cramping in her upper left abdomen. Her symptoms fully resolved and she didn't think more on it until 3 days ago when she began having more sever periumbilical/LUQ abdominal pain which was accompanied by nausea and bilious emesis. She endorses fevers and chills over the last 3 days, denies flatus, and notes she is having mucous like loose stools. Patient denies dysuria, frequency, or suprapubic pain. She denies pain radiating to her back, but notes that she has had radiation into her left shoulder. Patient has a history of gastric bypass surgery in 2016, cholecystectomy in 2018, and a subsequent tummy tuck surgery. Patient notes that she has not eaten more than ice chips today. She has no PMH of bowel obstruction or complication of her gastric bypass. ED Course: IVF, NGT, Morphine, Zofran Allergies Allergy/AdvReac Type Severity Reaction Status Date / Time bupropion [From Wellbutrin] AdvReac suicidal Verified 11/03/23 17:05 Home Medications Medication Instructions Recorded Confirmed Type multivitamin 1 tab PO DAILY 05/30/19 11/03/23 History melatonin 10 mg capsule 10 mg PO HS PRN Sleep 06/13/19 11/03/23 History alendronate 70 mg tablet 70 mg PO WK 11/03/23 11/03/23 History dextroamphetamine-amphetamine ER 20 mg PO QAM 11/03/23 11/03/23 History 20 mg 24hr capsule,extend release escitalopram oxalate 20 mg tablet 20 mg PO DAILY 11/03/23 11/03/23 History propranolol 20 mg tablet 20 mg PO .EVERY 24 HOURS PRN 11/03/23 11/03/23 History Anxiety acetaminophen 325 mg tablet 650 mg (2 x 325 mg) PO Q4H PRN #0 11/05/23 Rx tabs ondansetron 4 mg disintegrating 4 mg translingual Q6H PRN nausea 11/05/23 Rx tablet and vomiting #14 tabs Past Med/Surg History Problem List (Updated 11/03/23 @ 21:16 by Slick Restrepo DO) Vomiting (Acute) Anemia (Acute) Abdominal pain (Acute) Partial bowel obstruction (Acute) Small bowel obstruction Facial laceration Medical History (Updated 11/03/23 @ 21:16 by Slick Restrepo DO) Cystic fibrosis carrier Irritable bowel syndrome with diarrhea Anxiety Surgical History H/O abdominoplasty (06/14/19) and brachioplasty History of cholecystectomy History of gastric bypass 8yrs ago, previously dx with ALYSSA, resolved with wt loss. History of esophagogastroduodenoscopy (EGD) History of colonoscopy Family History Other No family history of adverse response to anesthesia Social History Smoking Status: Former smoker Tobacco Type: Cigarettes Second Hand Exposure: No; Do You Dip or Chew Tobacco: No; Hx Alcohol Use: Yes Hx Substance Use: Yes Last Used Substance: Days (ago) Last Used Substance Other:: 3 weeks ago Preferred Language: Uruguayan Communication Ability: Effective Hospital Admitting Clerk Required: No Beliefs That Will Affect Care: None Current Living Situation: Spouse Feels Safe at Home: Yes Assistive Devices: None Physical Exam Physical Exam: Gen: NAD, alert, interactive HEENT: Supple, no LAD, no thyromegaly, no JVD Resp:Non-labored, no wheezing/rhonchi/rales, CTAB CV:RRR, normal S1/S2, no M/R/G Abd: Soft, non-distended, LUQ/periumbilical TTP, active bowel sounds, no masses - NGT intact draining bilious fluid Extr: 2+ dp bilaterally, no edema Skin: No rashes lesions or erythema Results & Data Results & Data Vital Signs (Past 12 Hours) Vital Signs Temp Pulse Pulse Resp BP BP Pulse Ox 11/03/23 18:05 100 11/03/23 18:04 85 19 140/62 100 11/03/23 16:27 77 11/03/23 14:33 36.7 C 75 18 140/77 99 O2 Del Method 11/03/23 18:05 Room Air 11/03/23 18:04 Room Air 11/03/23 16:27 11/03/23 14:33 Room Air Supervising Physician Co-Signing Physician Notes Attending addendum: I have physically seen this patient, have supervised the medical residents activities, and agree with the H&P unless as otherwise noted. Assessment and Plan: Small bowel obstruction/history of gastric bypass surgery- Presents with acute abdominal pain, and nausea CT scan abdomen and pelvis shows partial small bowel obstruction with transition point at the anastomosis of the Galdino-en-Y gastric bypass in the left upper quadr ant Feeling somewhat improved with NG tube placed in the ED, will continue to low intermittent suction Patient has been accepted at [facility] in [place], and will be transferred when bed is available General surgery consulted NPO IV fluids as noted Zofran 4 mg IV every 6 hours as needed Morphine IV as needed for pain control All other medications will be held while patient is n.p.o. Resident Activity Tracking Resident Involvement: Resident Care Provided Care Provided: [facility] Medicine"
--- NOTE | 2023-11-03 20:12 | Surgery Consultation ---
Date of Consultation November 03, 2023 Assessment & Plan (1) Small bowel obstruction: The patient is being admitted on the hospital service. From surgery perspective we recommend the following: Due to the concern for partial small bowel obstruction and her nausea and vomiting an NG tube has been inserted. Following insertion of this NG tube KUB was performed that showed satisfactory position of this tube. Would recommend keeping this NG tube in place to low continuous suction Keep the patient n.p.o. Provide IV fluid for hydration As the patient's partial small bowel obstruction is noted to have a transition point near her gastric bypass anastomosis, the patient will likely require transfer to a center where bariatric surgery can be performed. The treating emergency room physician has initiated this process but reportedly no beds are available at accepting facility at this time. We therefore continue with the treatment plan as outlined above for the present time, transferring the patient once bed becomes available Supervising Physician Co-Signing Physician Notes I personally saw and evaluated the patient with Evan Zimmerman PA-C and agree with his assessment and plan. 63-year-old female with history of RYGB, here with a partial small bowel obstruction at the anastomosis Her CT images and results personally reviewed and interpreted by myself She is overall nontoxic does not appear to have any signs of ischemic bowel on imaging or exam Would recommend a transfer back to her operating facility to manage her bowel obstruction ER did touch base with [facility] who accepted the patient and she is aw aiting transfer Will follow along while she is here History of Present Illness Reason for Consultation: Small bowel obstruction History of Present Illness This is a 63-year-old female who presented to the emergency department secondary to abdominal pain. Patient notes that approximately 1 week ago she was having some nonspecific abdominal pain in her upper abdomen which got better without any treatment. She notes that she was doing well for few days however over the past 3 days she has had some noted pain in her upper abdomen which was somewhat responsive to Tylenol. Despite being somewhat responsive to Tylenol she continues to have upper abdominal pain which is nonradiating. She has had associated nausea and vomiting for the duration of this pain. She does not report any other mitigating factors. Patient does have a history of gastric bypass surgery performed approximately 10 years ago in [place], [place]. She does note that she did have a loose bowel movement this morning but is not passing any flatus. Patient says that she has had multiple colonoscopies and at one point had a polypectomy but to the best of her knowledge there have been no other concerning findings on her colonoscopies. In addition to her gastric bypass surgery the patient has also undergone a cholecystectomy which was performed after her gastric bypass. Since arrival to the hospital she has had labs and imaging which independent reviewed. A chest x-ray showed no evidence of pneumonia. A CT scan of the abdomen pelvis showed the patient had a partial small bowel obstructionthe transition point was noted at the anastomosis of the Galdino-en-Y gastric bypass in the left upper quadrant. Labs included CBC were white blood cell count was normal. Her hemoglobin and hematocrit are 11.6 and 36.6. Platelet count is 4 and 53,000. Coagulation studies are normal and chemistry profile showed sodium and potassium were normal. The BUN and creatinine were not elevated. There is no elevation of her LFTs. At the time of my interview she was resting comfortably bed and she was in no distress. Allergies Allergy/AdvReac Type Severity Reaction Status Date / Time bupropion [From Wellbutrin] AdvReac suicidal Verified 11/03/23 17:05 Home Medications Medication Instructions Recorded Confirmed Type multivitamin 1 tab PO DAILY 05/30/19 11/03/23 History melatonin 10 mg capsule 10 mg PO HS PRN Sleep 06/13/19 11/03/23 History alendronate 70 mg tablet 70 mg PO WK 11/03/23 11/03/23 History dextroamphetamine-amphetamine ER 20 mg PO QAM 11/03/23 11/03/23 History 20 mg 24hr capsule,extend release escitalopram oxalate 20 mg tablet 20 mg PO DAILY 11/03/23 11/03/23 History propranolol 20 mg tablet 20 mg PO .EVERY 24 HOURS PRN 11/03/23 11/03/23 History Anxiety Patient History Medical History (Updated 11/03/23 @ 21:16 by Slick Restrepo DO) Cystic fibrosis carrier Irritable bowel syndrome with diarrhea Anxiety Surgical History H/O abdominoplasty (06/14/19) and brachioplasty History of cholecystectomy History of gastric bypass 8yrs ago, previously dx with ALYSSA, resolved with wt loss. History of esophagogastroduodenoscopy (EGD) History of colonoscopy Family History Other No family history of adverse response to anesthesia Social History Smoking Status: Former smoker Tobacco Type: Cigarettes Second Hand Exposure: No; Do You Dip or Chew Tobacco: No; Tobacco Cessation Education Requested by Patient: No Hx Alcohol Use: Yes Hx Substance Use: Yes Last Used Substance: Days (ago) Last Used Substance Other:: 3 weeks ago Preferred Language: Korean Communication Ability: Effective Insurance Auditor Required: No Beliefs That Will Affect Care: None Current Living Situation: Spouse Feels Safe at Home: Yes Safety Concerns: Feels Safe At This Time Assistive Devices: None Review of Systems Review of Systems: All systems reviewed & are unremarkable except as noted in HPI & below Physical Exam Constitutional: WD/WN, vitals as above Eyes: no conjunctival abnormality ENMT: Ears: no hearing impairment and no external ear abnormality Mouth: no oropharynx abnormality Neck: trachea midline Respiratory: normal respiratory effort; no respiratory distress and no labored breathing Cardiovascular: Rate/Rhythm: regular rate and regular rhythm Gastrointestinal (Abdomen): Abdomen is soft, nonrigid, nondistended. There is no rebound tenderness or guarding. At the time of my exam there is no pain with palpation Musculoskeletal: No calf tenderness Skin: no rashes Neurologic: moves all extremities Psychiatric: A+Ox3, euthymic affect Results & Data Vital Signs (Past 12 Hours) Vital Signs Temp Pulse Pulse Resp BP BP Pulse Ox 11/03/23 18:05 100 11/03/23 18:04 85 19 140/62 100 11/03/23 16:27 77 11/03/23 14:33 36.7 C 75 18 140/77 99 O2 Del Method 11/03/23 18:05 Room Air 11/03/23 18:04 Room Air 11/03/23 16:27 11/03/23 14:33 Room Air PG Care Time/CCT Total # of Minutes Spent Total Time Spent with Patient: Total time spent is greater than 50% in coordination of care (as documented) at patient's floor/unit and/or counseling patient: Coding Level of Care Code 09374 IN/OBS CONSULT LVL 5,80M Diagnoses Small bowel obstruction K56.609
[2023-11-03] MEDS: LACTATED RINGER'S 1,000 ML IV SCH (21:08)
[2023-11-04] MEDS: MoRPHine SULFATE 4 MG/ML 1 ML CARP\\VIAL IV PRN (02:15)
[2023-11-04] MEDS: ONDANSETRON INJ 2 MG/ML 2 ML VIAL IV PRN (02:15)
--- OUTSIDE RECORDS SUMMARY | 2023-11-04 07:04 | External Medical Summary ---
Author Name Unknown Address Unknown Organization : Laboratory Report Ordering Provider Test Date Status Fly Moreno 10/07/2023 11:01:00 Final Observation Date Value Abnormality Reference (Units ) Status Iron saturation [Mass Fraction] in Serum or Plasma 10/08/2023 09:25:00 6 Below low normal 16-45 (% (calc)) Final
Specimen Received d/t: 10/07/2023 23:40:00

Lab test performed by:
[facility], [facility]
[address]
[place] [address]
Jordy Chakraborty MD Iron [Mass/volume] in Serum or Plasma 10/08/2023 09:25:00 25 Below low normal 45-160 (mcg/dL ) Final
Specimen Received d/t: 10/07/2023 23:40:00

Lab test performed by:
[facility], [facility]
[address]
[place] [address]
Jordy Chakraborty MD Iron binding capacity [Mass/volume] in Serum or Plasma 10/08/2023 09:25:00 435 250-450 (mcg/dL (calc )) Final
Specimen Received d/t: 10/07/2023 23:40:00

Lab test performed by:
[facility], [facility]
[address]
[place] [address]
Jordy Chakraborty MD Performing Location
--- OUTSIDE RECORDS SUMMARY | 2023-11-04 07:04 | External Medical Summary ---
Author Name Unknown Address Unknown Organization : Laboratory Report Ordering Provider Test Date Status TiffanieRanjana bashirthais 10/07/2023 11:01:00 Final Observation Date Value Abnormality Reference (Units ) Status Ferritin [Mass/volume] in Serum or Plasma 10/08/2023 09:25:00 5 Below low normal 16-288 (ng/mL) Final FASTING:UNKNOWN

FAS TING: UNKNOWN

Specimen Received d/t: 10/07/2023 23:40:00

Lab test performed by:
[facility], [facility]
[address]
[place] [address]
Jordy Chakraborty MD Performing Location
--- OUTSIDE RECORDS SUMMARY | 2023-11-04 07:04 | External Medical Summary ---
Author Name Unknown Address Unknown Organization : Laboratory Report Ordering Provider Test Date Status Fly Moreno 10/07/2023 11:01:00 Final Observation Date Value Abnormality Reference (Units ) Status Platelets [#/volume] in Blood by Automated count 10/08/2023 09:25:00 414 Above high normal 140-400 (Thousand/uL) Final
Specimen Received d/t: 10/07/2023 23:40:00

Lab test performed by:
[facility], [facility]
[address]
[place] [address]
Jordy Chakraborty MD Hematocrit [Volume Fraction] of Blood by Automated count 10/08/2023 09:25:00 39.4 35.0-45.0 (%) F inal
Specimen Received d/t: 10/07/2023 23:40:00

Lab test performed by:
[facility], [facility]
[address]
[place] [address]
Jordy Chakraborty MD Eosinophils [#/volume] in Bl ood by Automated count 10/08/2023 09:25:00 99 15-500 (cells/uL) Final
Specimen Received d/t: 10/07/2023 23:40:00

Lab test performed by:
[facility], [facility]
[address]
[place] [address]
Jordy Chakraborty MD Eosinophils/100 leukocytes i n Blood by Automated count 10/08/2023 09:25:00 1.6 (%) Final
Specimen Received d/t: 10/07/2023 23:40:00

Lab test performed by:
[facility], [facility]
[address]
[place] [address]
Jordy Chakraborty MD MCH [Entitic mass] by Automated count 10/08/2023 09:25:00 22.8 Below low normal 27.0-33.0 (pg) Final
Specimen Received d/t: 10/07/2023 23:40:00

Lab test performed by:
[facility], [facility]
[address]
[place] [address]
Jordy Chakraborty MD Leukocytes [#/volume] in Blo od by Automated count 10/08/2023 09:25:00 6.2 3.8-10.8 (Thous and/uL) Final
Specimen Received d/t: 10/07/2023 23:40:00

Lab test performed by:
[facility], [facility]
[address]
[place] [address]
Jordy Chakraborty MD Neutrophils [#/volume] in Bl ood by Automated count 10/08/2023 09:25:00 3410 [id number] (cell s/uL) Final
Specimen Received d/t: 10/07/2023 23:40:00

Lab test performed by:
[facility], [facility]
[address]
[place] [address]
Jordy Chakraborty MD Neutrophils/100 leukocytes i n Blood by Automated count 10/08/2023 09:25:00 55 (%) Final
Specimen Received d/t: 10/07/2023 23:40:00

Lab test performed by:
[facility], [facility]
[address]
[place] [address]
Jordy Chakraborty MD Erythrocyte distribution width [Ratio] by Automated count 10/08/2023 09:25:00 16.3 Above high normal 11.0-15.0 (%) Fi nal
Specimen Received d/t: 10/07/2023 23:40:00

Lab test performed by:
[facility], [facility]
[address]
[place] [address]
Jordy Chakraborty MD Hemoglobin [Mass/volume] in Blood 10/08/2023 09:25:00 11.9 11.7-15.5 (g/dL) Final
Specimen Received d/t: 10/07/2023 23:40:00

Lab test performed by:
[facility], [facility]
[address]
[place] [address]
Jordy Chakraborty MD Monocytes [#/volume] in Bloo d by Automated count 10/08/2023 09:25:00 471 200-950 (cells/uL) Final
Specimen Received d/t: 10/07/2023 23:40:00

Lab test performed by:
[facility], [facility]
[address]
[place] [address]
Jordy Chakraborty MD Monocytes/100 leukocytes in Blood by Automated count 10/08/2023 09:25:00 7.6 (%) Final
Specimen Received d/t: 10/07/2023 23:40:00

Lab test performed by:
[facility], [facility]
[address]
[place] [address]
Jordy Chakraborty MD MCV [Entitic volume] by Automated count 10/08/2023 09:25:00 75.6 Below low normal 80.0-100.0 (fL) Final
Specimen Received d/t: 10/07/2023 23:40:00

Lab test performed by:
[facility], [facility]
[address]
[place] [address]
Jordy Chakraborty MD Platelet mean volume [Entiti c volume] in Blood by Karon 10/08/2023 09:25:00 10.3 7.5-12.5 (f L) Final
Specimen Received d/t: 10/07/2023 23:40:00

Lab test performed by:
[facility], [facility]
[address]
[place] [address]
Jordy Chakraborty MD Basophils [#/volume] in Bloo d by Automated count 10/08/2023 09:25:00 112 0-200 (cells/uL) F inal
Specimen Received d/t: 10/07/2023 23:40:00

Lab test performed by:
[facility], [facility]
[address]
[place] [address]
Jordy Chakraborty MD Basophils/100 leukocytes in Blood by Automated count 10/08/2023 09:25:00 1.8 (%) Final
Specimen Received d/t: 10/07/2023 23:40:00

Lab test performed by:
[facility], [facility]
[address]
[place] [address]
Jordy Chakraborty MD Erythrocytes [#/volume] in Blood by Automated count 10/08/2023 09:25:00 5.21 Above high normal 3.80-5.10 (Million/uL) Final
Specimen Received d/t: 10/07/2023 23:40:00

Lab test performed by:
[facility], [facility]
[address]
[place] [address]
Jordy Chakraborty MD Lymphocytes [#/volume] in Bl ood by Automated count 10/08/2023 09:25:00 [id number] (cells /uL) Final
Specimen Received d/t: 10/07/2023 23:40:00

Lab test performed by:
[facility], [facility]
[address]
[place] [address]
Jordy Chakraborty MD MCHC [Mass/volume] by Automated count 10/08/2023 09:25:00 30.2 Below low normal 32.0-36.0 (g/dL) Final
Specimen Received d/t: 10/07/2023 23:40:00

Lab test performed by:
[facility], [facility]
[address]
[place] [address]
Jordy Chakraborty MD Lymphocytes/100 leukocytes i n Blood by Automated count 10/08/2023 09:25:00 34.0 (%) Final
Specimen Received d/t: 10/07/2023 23:40:00

Lab test performed by:
[facility], [facility]
[address]
[place] [address]
Jordy Chakraborty MD Performing Location
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
--- OUTSIDE RECORDS SUMMARY | 2023-11-04 07:05 | External Medical Summary | Continuity of Care Document ---
Author Name Unknown Organization [address] [id number] Care Team Providers Care Smelter Liner Name Role Phone Hugh Palencia Primary Care Physician [phone] Encounter [facility] [id number] Date(s): 08/24/23 - 08/24/[address] [facility] [address] [address] [phone] Encounter Diagnosis Hx of gastric bypass(Discharge Diagnosis) - 08/24/23 Osteoporosis(Discharge Diagnosis) - 08/24/23 Attention deficit hyperactivity disorder(Discharge Diagnosis) - 08/24/23 Discharge Disposition: Home or Self Care Attending Physician: MD Brown [place] Referring Physician: MD Brown [place] Allergies, Adverse Reactions, Alerts Substance Reaction Severity Status Wellbutrin Suicidal Ideation Active NSAIDS (nonsteroidal anti-inflammatory agents) pt had Gastric bypass Active Assessment and Plan Extracted from: Title:follow up Author:DON Bill Tara Date: 1.Osteoporosis Acute/Chronic: chronic Goal:Resolution/ control Status:stable/controlled Data: records/pt report Plan:She is tolerating fosamax daily. Will switch to weekly. She has had gastric bypass so will follow up in one month to ensure she contd to tolerate. She may need to be switched to prolia. 2.Hx of gastric bypass Acute/Chronic: chronic Goal:Resolution/ control Status:stable/controlled Data: records/pt report Plan:She is feeling cold. She does take b12 but is not on any other vitamins. She has not had iron. b12, folate, vit d or tsh levels done in the last year.Will order. 3.Attention deficit hyperactivity disorder Acute/Chronic: chronic Goal:Resolution/ control Status:stable/controlled Data: records/pt report Plan:She had been on adderall 10mg xr approx 12 years ago. After reviewing notes it was listed as making her jittery. She would like to try it again as she is starting a new job. CSA signed. PDMP no red flags. Follow up in 1 mo time spent reviewing chart, face to face visit, ordersand documentation: 33 min Immunizations Given and Recorded Vaccine Date [...] 2021-07-12: Historical information-source unspecified Medications Adderall XR 10 mg oral capsule, extended release Start: 08/24/23 9:47:00 EDT, 1 cap, PO, qAM, Disp# 30 cap, Refills: 0, Pharmacy: [facility] Start Date: 08/24/23 Stop Date: 09/23/23 Status: Ordered alendronate 70 mg oral tablet Start: 08/24/23 9:03:00 EDT, 1 tab, PO, q7days, Disp# 4 tab, Refills: 11, Pharmacy: [id number] Start Date: 08/24/23 Stop Date: 07/25/24 Status: Ordered Calcium and Magnesium oral tablet Start: 02/27/23 7:58:00 EDT Start Date: 02/27/23 Status: Ordered escitalopram 20 mg oral tablet Start: 07/20/23 9:16:00 EST, 1 tab, PO, Daily, Disp# 90 tab, Refills: 3, Pharmacy: [facility] Start Date: 07/20/23 Status: Ordered [...] tab, Refills: 2, PRN: NEEDED FOR ANXIETY,Pharmacy: [id number] Start Date: 08/03/23 Status: Ordered Tylenol Extra Strength Start: 10/06/14 14:20:00, 320 mg =, PO, q6h, Takes 4 tabs between Oxycodone Start Date: 10/06/14 Status: Ordered Mental Status 08/24/23 Barriers to Learning one year None evide nt Mandatory Health Literacy Documentation Yes Health Literacy Communication Barriers N ever Primary Language Yakut Problem List Condition Confirmation Course Effective Dates [...] Effective Dates Health Status Clinical Service Informant Hx of gastric bypass Discharge Diagnosis 08/24/23 Osteoporosis Discharge Diagnosis 08/24/23 Attention deficit hyperactivity disorder Discharge Diagnosis 08/24/23 Procedures Procedure Date Related Diagnosis Body Site [...] over 5 injection points in to the public speaking coach and procerus muscles. 9 units were injected [...] There is no evidence for bowel obstruction. [id number]: normal 22wisdom teeth removal Vital Signs Most recent to oldest [Reference Range]: 1 Heart Rate 77 bpm (08/24/23 8:53 AM) Respiratory Rate 16 br/min (08/24/23 8:53 AM) Blood Pressure 116/74mmHg (08/24/23 8:53 AM) Cuff Pulse Pressure 42 mmHg (08/24/23 8:53 AM) Social History Social History Type Response Smoking Status Never smoked cigaret zaid Sex Female [facility] Outpt Note * DON Bill Tara: PERFORM, MODIFY Event Display: [facility] Outpt Note Authored Date: Chief Complaint f/u osteoporosis, no concerns History of Present Illness She is on fosamax daily. She does have difficulty remembering to take it. She is not having any side effects. No abd pain or GERD. ADHD inthe past she was on adderall. It made her jittery from lookingbackat past notes so shestopped it.She isstarting new job withall computer work so she is wondering about trying med again. Feeling cold. Hx of gastric bypass. Review of Systems Constitutional: No fever, chills, sweats Pulmonary: No shortness of breath, dyspnea with exertion, cough, hemoptysis, wheezing, chest pain. Cardiovascular: No chest pain, palpitations, syncope, edema, cyanosis, claudication, orthopnea. GI: No nausea, vomiting, diarrhea, melena, hematochezia, change in appetite, abdominal pain, changein bowel habits or stools Musculoskeletal: No joint swelling or pain, muscle pain, back pain Neurologic: No headache, lightheadedness, dizziness, Psychiatric: No depression, anxiety Dermatologic: No rash, new/growing/changing skin lesions Endocrine: No weight change, tremor, insomnia, polyuria, polydipsia, polyphagia, abnormal hair growth, change in nails. Feeling cold. Physical Exam Vitals & Measurements HR:77(Monitored) RR:16 BP:116/74 SpO2:98% PHQ2 Data(Data Documented on:08/24/2023 08:53) Emotional health assessment NEGATIVE head- normocephalic Pulmonary- chest expansion symmetric CV (cardiovascular)- RRR extremitiesNo edema or erythema. skin-good turgor w/o lesions, redness, cyanosis, edema nails- no clubbing or deformities w good cap refill Neuro:Alert, Oriented Psy:no homicidal or suicidal ideations. Assessment/Plan 1.Osteoporosis Acute/Chronic: chronic Goal:Resolution/ control Status:stable/controlled Data: records/pt report Plan:She is tolerating fosamax daily. Will switch to weekly. She has had gastric bypass so will follow up in one month to ensure she contd to tolerate. She may need to be switched to prolia. 2.Hx of gastric bypass Acute/Chronic: chronic Goal:Resolution/ control Status:stable/controlled Data: records/pt report Plan:She is feeling cold. She does take b12 but is not on any other vitamins. She has not had iron. b12, folate, vit d or tsh levels done in the last year.Will order. 3.Attention deficit hyperactivity disorder Acute/Chronic: chronic Goal:Resolution/ control Status:stable/controlled Data: records/pt report Plan:She had been on adderall 10mg xr approx 12 years ago. After reviewing notes it was listed asmaking her jittery. She would like to try it again as she is starting a new job. CSA signed. PDMP no red flags. Follow up in 1 mo time spent reviewing chart, face to face visit, ordersand documentation: 33 min Problem List/Past Medical History Ongoing ANXIETY [...] tablet), 70 mg= 1 tab, PO, q7days, 11 refills cannabis(Medical Marijuana), 1 inh, inhaled escitalopram(escitalopram 20 mg oral tablet), 1 tab, PO, Daily, 3 refills melatonin(melatonin 3 mg oral tablet), 6 mg= 2 tab, PO, qhs, PRN multivitamin with minerals(Calcium and Magnesium oral tablet) multivitamin with minerals(PreserVision AREDS 2 oral capsule), 1 cap, PO propranolol(propranolol 20 mg oral tablet), 1 tab, PO, q24h, PRN unknown medication(Prevagen) Allergies NSAIDS (nonsteroidal anti-inflammatory agents)pt had Gastric [...] due10/20/21and every 3year Due Adult COVID-19 Vaccination due08/24/23Unknown Frequency Adult Social Determinants of Health Screening due08/24/23Unknown Frequency Due In Future Adult Influenza Vaccine not due until12/06/23and every 1year Body Mass Index not due until02/28/24and every 366day Satisfied(in the past 1 year) Satisfied Adult Influenza Vaccine on02/27/23.Satisfied by MICHELINE Sinclair Sharon Body Mass Index on02/27/23.Satisfied by MICHELINE Sinclair Sharon Breast Cancer Screening on07/10/23.Satisfied by CHANDRKAANT Huizar Lynnae Lipid Screening on03/27/23.Satisfied by [facility], [id number] Shingles Vaccine on02/27/23.Satisfied by MICHELINE Sinclair Sharon Electronic Signature on File Electronically Reviewed/Signed by: DON Baeza Author Signature Dt/Tm:08/24/2023 09:46 AM Department of Family Medicine Electronically Reviewed/Signed by: DON Baeza Cosigner Signature Dt/Tm: 08/24/2023 09:47 AM Department of Family Medicine TB Patient Care team information Care Team Personnel Name: MD Palencia Juan Position: Physician - Family Med Member Role: Primary Care Provider Address: Address: [address] [place] [address], [place] [address] Care Team Related Persons Name: DANIEL GERMAN Address: home [address] [place], [place] [id number] Name: MAXIDANIEL Estrada Address: [facility] Address: home [address] [facility], [place] [id number]"
--- NOTE | 2023-11-04 08:42 | Surgery Progress Note ---
Date of Service November 04, 2023 Assessment & Plan (1) Small bowel obstruction: Plan: Continue NPO, NGT, IV fluids Waiting for transfer to [facility] Not a surgical candidate at this facility Seen with Dr Oliver Admission and Anticipated Discharge Date Admission Date: November 03, 2023 Supervising Physician Co-Signing Physician Notes I personally saw and evaluated the patient with Magalis OCHOA and agree with his assessment and plan. 63-year-old female with history of RYGB, here with a partial small bowel obstru ction at the anastomosis Her CT images and results personally reviewed and interpreted by myself She is overall nontoxic does not appear to have any signs of ischemic bowel on imaging or exam Would recommend a transfer back to her operating facility to manage her bowel obstruction ER did touch base with [facility] MIS surgery who accepted the patient and she is awaiting transfer Will follow along while she is here Subjective pt reports pain controlled with medication epigastric region no n/v has NGT tube Review of Systems Gastrointestinal: + abdominal pain; no nausea and no vomit ing Physical Exam Constitutional: cooperative; no acute distress Gastrointestinal (Abdomen): Inspection/Auscultation: abdomen not distended Percussion/Palpation: + abdomen tender and abdomen soft Results & Data Vital Signs (Past 12 Hours) Vital Signs Temp Pulse Resp BP Pulse Ox O2 Del Method 11/04/23 07:56 97.9 F 70 17 128/72 99 Room Air 11/03/23 22:00 97.9 F 73 18 136/77 98 Room Air 11/03/23 21:07 78 18 129/77 100 Room Air Results CBC w Diff Results: RBC 5.17 M/uL (4.20-5.40) 11/03/23 WBC 8.23 K/ul (4.8-10.8) 11/03/23 Hgb 11.6 g/dl (12.0-16.0) L 11/03/23 Hct 36.6 % (37.0-47.0) L 11/03/23 MCV 70.8 fL (80.0-100.0) L 11/03/23 MCH 22.4 pg (25.0-34.0) L 11/03/23 MCHC 31.7 g/dL (32.0-36.0) L 11/03/23 RDW Standard Deviation 44.8 fL (36.4-46.3) 11/03/23 RDW Coefficient of Variation 18.5 % (11.5-14.5) H 11/03/23 Plt Count 453 K/uL (130-400) H 11/03/23 MPV 9.8 fL (9.4-12.4) 11/03/23 Neutrophils (%) (Auto) 87.0 % 11/03/23 Lymphocytes (%) (Auto) 9.8 % 11/03/23 Monocytes # (Auto) 0.19 K/uL (0.11-0.59) 11/03/23 Eosinophils # (Auto) 0.00 K/uL (0.00-0.50) 11/03/23 Immature Granulocyte % (Auto) 0.4 % 11/03/23 Neutrophils # (Auto) 7.16 K/uL (1.40-6.50) H 11/03/23 Lymphocytes # (Auto) 0.81 K/uL (1.20-3.40) L 11/03/23 Monocytes # (Auto) 0.19 K/uL (0.11-0.59) 11/03/23 Eosinophils # (Auto) 0.00 K/uL (0.00-0.50) 11/03/23 Basophils # (Auto) 0.04 K/uL (0.00-0.20) 11/03/23 Immature Granulocyte # (Auto) 0.03 K/uL (0.01-0.20) 4 PG Care Time/CCT Total # of Minutes Spent Total Time Spent with Patient: Total time spent is greater than 50% in coordination of care (as documented) at patient's floor/unit and/or counseling patient: Coding Level of Care Code 86948 SUB INP/OBS CARE 07/02MIN Diagnoses Small bowel obstruction K56.609
--- NOTE | 2023-11-04 12:44 | CT Scan Report ---
CT SCAN OF THE ABDOMEN AND PELVIS WITHOUT IV CONTRAST CLINICAL HISTORY: Generalized abdominal pain. Possible obstruction. COMPARISON STUDY: Abdominal CT dated 11/03/2023. TECHNIQUE: CT scan of the abdomen and pelvis is performed from the lung bases to the proximal femora. Images are reviewed in the axial, sagittal, and coronal planes. IV contrast was not administered for this examination. Note that the examination is suboptimal without IV contrast. Oral contrast was uti lized. A dose lowering technique was utilized adhering to the principles of ALARA. CT DOSE: 602.7 mGy.cm FINDINGS: Lung bases: The heart is normal in size and without pericardial effusion. There is diminished attenua tion of the cardiac blood pool as compared to the myocardium suggesting anemia. A 4 mm pleural-based nodule in the right upper lobe along the minor fissure as seen on image #1. There are trace pleural e ffusions with dependent atelectasis. No airspace consolidation is identified typical for pneumonia. Liver: The unenhanced liver is normal in size, contour, and attenuation. There is mild intrahepatic b iliary ductal dilatation. Gallbladder: Surgically absent noting clips in the gallbladder fossa. Spleen: Normal in size and attenuation. Pancreas: Unremarkable. Adrenal glands: Unremarkable. Kidneys: The unenhanced kidneys are normal in size and without hydronephrosis. There are no renal bernardo culi identified. A 1.8 cm angiomyolipoma is again seen in the upper pole of the left kidney. Abdominal vasculature: The abdominal aorta is normal in course and caliber. Stomach and bowel: An enteric tube is in place. This terminates in the proximal jejunum. Postsurgical changes consistent with a history of Galdino-en-Y gastric bypass surgery. No bowel obstruction is seen. Enteric contrast reaches the distal transverse colon. A dilated loop of small bowel in the left mida bdomen on image #109 at the distal anastomosis is likely related to focal denervation. The appendix i s well-visualized and normal. Peritoneum: There is no intraperitoneal free air or abdominal ascites. Lymphadenopathy: None. Pelvic viscera: The bladder is normal in appearance, and filled with excreted IV contrast. The uterus and adnexa are normal as visualized. Skeletal structures: The skeletal structures are osteopenic. There is mild/moderate lumbosacral spond ylosis. Arthritic change is noted in the left hip. No lytic or blastic lesions are seen. IMPRESSION: 1. No bowel obstruction is identified. 2. An enteric tube is in place, with the tip located within the proximal jejunum. 3. Postsurgical change is consistent with prior Galdino-en-Y gastric bypass surgery. 4. Trace pleural effusions. 5. Additional findings as above. ACT 112: Negative or not required by law. Electronically signed by: Bjorn Troncoso M.D. 11/04/2023 12:42 PM
[2023-11-04] MEDS ORDERED: PROPRANOLOL HCL 20 MG TAB PO PRN (14:34)
[2023-11-04] MEDS ORDERED: CHLORASEPTIC (PHENOL) 1.4% SOLN 180 ML BTL MT PRN (15:07)
[2023-11-04] MEDS: ACETAMINOPHEN 325 MG TAB PO PRN (17:26)
--- NOTE | 2023-11-04 17:28 | Hospitalist Progress Note ---
<Statement entered by Chantel Barriga MD - 11/04/23 19:29> I personally reviewed the chart including notes, studies, vital signs, labs. I personally examined the patientnotable for NG tube in place alert and oriented x 4 abdomen soft nontender nondistended active bowel sounds present. I agree with documentation of the assessment and plan below as per Chantel mcneil PA-C Date of Service November 04, 2023 Assessment & Plan (1) Small bowel obstruction: Plan: - Presented with acute abdominal pain, nausea, and emesis x 3 days. - CXR negative on admission - CT A/P showing partial small bowel obstruction with a transition point at the anastomosis of the Galdino-en-Y gastric bypass in the left upper quadrant. -- [facility] [place] regarding patient's SBO in setting of gastric bypass -- [facility] [place] team noted that these often resolve independently w/o surgical intervention, but encouraged inpt monitoring - [place] General surgery consulted while admitted - NGT placed in ED, drained bilious fluid - Repeat CT A/P with oral contrast 11/04/23 revealed no bowel obstruction. -- Discussed results with Dr. Franklin Rosario [place] [facility] who recommends medical management in the setting of resolved obstruction. -- [facility] [place] call patient for outpatient follow-up appointment in 1-2 weeks. - NGT removed 11/04/23 and diet advanced to clear liquids. This has been well- tolerated so far. Continue to advance diet as tolerated. - Pain management with Morphine - Nausea management with Zofran (2) History of gastric bypass: Plan Ordered repeat CT abdomen pelvis. Discussed CT results and management with Dr. Rosario at [facility]. NG tube removed and diet advanced to clear liquids. Resumed oral medications. Chronic and stable conditions: Anxiety: Continue escitalopram and propranolol ADD: Continue dextroamphetamine Osteoporosis: Continue alendronate sodium DVT PPx: SCDs CODE STATUS: Full code Admission and Anticipated Discharge Date Admission Date: November 03, 2023 Subjective Patient seen and evaluated at bedside. Patient was initially to be transferred to [facility] last night, however there is no bed availability at that time. She had a repeat CT abdomen pelvis with oral contrast today which revealed no bowel obstruction. I discussed these results with Dr. [place] [facility] who feels as though patient can be managed medically at [facility], with follow-up in his office in 1-2 weeks. Patient reports that she is feeling bett er and has an appetite. NG tube was removed this afternoon with trial of clear liquid diet. This has been well-tolerated. She reports some epigastric/left upper quadrant abdominal pain. Nursing reports patient had a small loose bowel movement in the evening. Physical Exam Physical Exam: General: No acute distress, nondiaphoretic, well-developed, well-nourished. Skin: The skin was without rashes, erythema, edema, or bruising. Cardiac: Regular rate and rhythm without murmurs gallops or rubs. Pulm: Clear to auscultation bilaterally without wheezes, rales or rhonchi. No retractions or accessory muscle use. Abdominal: Soft, nondistended, without masses or organomegaly. LUQ/epigastric tenderness to palpation. Positive bowel sounds x 4. Neuro: A&O x3. No focal neurological deficits. Results & Data Results & Data Vital Signs (Past 12 Hours) Vital Signs Temp Pulse Resp BP Pulse Ox O2 Del Method 11/04/23 12:13 36.7 C 17 124/74 99 Room Air 11/04/23 07:56 36.6 C 70 17 128/72 99 Room Air Laboratory Results Reviewed CBC Reviewed CMP Diagnostic Findings Reviewed CT abdomen/pelvis 11/04/2023 FINDINGS: Lung bases: The heart is normal in size and without pericardial effusion. There is diminished attenuation of the cardiac blood pool as compared to the myocardium suggesting anemia. A 4 mm pleural-based nodule in the right upper lobe along the minor fissure as seen on image #1. There are trace pleural effusions with dependent atelectasis. No airspace consolidation is identified typical for pneumonia. Liver: The unenhanced liver is normal in size, contour, and attenuation. There is mild intrahepatic biliary ductal dilatation. Gallbladder: Surgically absent noting clips in the gallbladder fossa. Spleen: Normal in size and attenuation. Pancreas: Unremarkable. Adrenal glands: Unremarkable. Kidneys: The unenhanced kidneys are normal in size and without hydronephrosis. There are no renal calculi identified. A 1.8 cm angiomyolipoma is again seen in the upper pole of the left kidney. Abdominal vasculature: The abdominal aorta is normal in course and caliber. Stomach and bowel: An enteric tube is in place. This terminates in the proximal jejunum. Postsurgical changes consistent with a history of Galdino-en-Y gastric bypass surgery. No bowel obstruction is seen. Enteric contrast reaches the distal transverse colon. A dilated loop of small bowel in the left midabdomen on image #109 at the distal anastomosis is likely related to focal denervation. The appendix is well-visualized and normal. Peritoneum: There is no intraperitoneal free air or abdominal ascites. Lymphadenopathy: None. Pelvic viscera: The bladder is normal in appearance, and filled with excreted IV contrast. The uterus and adnexa are normal as visualized. Skeletal structures: The skeletal structures are osteopenic. There is mild/moderate lumbosacral spondylosis. Arthritic change is noted in the left hip. No lytic or blastic lesions are seen. IMPRESSION: 1. No bowel obstruction is identified. 2. An enteric tube is in place, with the tip located within the proximal jejunum. 3. Postsurgical change is consistent with prior Galdino-en-Y gastric bypass surgery. 4. Trace pleural effusions. 5. Additional findings as above. PG Care Time/CCT Total # of Minutes Spent Total Time Spent with Patient: Total time spent is greater than 50% in coordination of care (as documented) at patient's floor/unit and/or counseling patient: Coding Level of Care Code 28046 SUB INP/OBS CARE 3/50MIN Diagnoses Small bowel obstruction K56.609 History of gastric bypass Z98.84
[2023-11-04] MEDS: MELATONIN 3 MG TAB PO PRN (21:08)
[2023-11-05 07:52] LABS: Hematocrit (blood only) 32.9 % (37.0-47.0); Hemoglobin 10.3 g/dl (12.0-16.0); Mean Corpuscular Hemoglobin 22.4 pg (25.0-34.0); Mean Corpuscular Hgb Conc 31.3 g/dL (32.0-36.0); Mean Corpuscular Volume 71.5 fL (80.0-100.0); Platelet Count 360 K/uL (130-400); RDW Coefficient of Variation 18.4 % (11.5-14.5); RDW Standard Deviation 46.5 fL (36.4-46.3); White Blood Count 6.64 K/ul (4.8-10.8)
[2023-11-05] MEDS: ALENDRONATE SODIUM 70 MG TAB PO SCH (07:54)
[2023-11-05] MEDS: DEXTROAMPHETAMINE/AMPHETAMINE ER 20 MG CAP PO SCH (07:54)
[2023-11-05] MEDS: MULTIVITAMIN TAB PO SCH (07:55)
[2023-11-05] MEDS: ESCITALOPRAM OXALATE 20 MG TAB PO SCH (07:55)
[2023-11-05 08:08] LABS: BUN Creatinine Ratio 15.9 (10-20); Calcium 8.2 mg/dl (8.6-10.3); Creatinine Clr Calc Pharmacy 115.7 ml/min; Est GFR (African American) 124.5 ml/min; Est GFR (Non-African American) 107.4 ml/min; Potassium 3.8 mmol/L (3.5-5.1)
--- NOTE | 2023-11-05 08:50 | Surgery Progress Note ---
Date of Service November 05, 2023 Assessment & Plan (1) Partial bowel obstruction: Plan: NGT has been removed and it seems her partial obstruction has resolved Advance diet as tolerated, if she tolerates lunch can be discharged from a surgical standpoint Surgery will sign off at this time, please call with any questions or concerns Admission and Anticipated Discharge Date Admission Date: November 03, 2023 Subjective Pt seen and examined. Repeat CT yesterday revealed resolved SBO. +BM. Tolerating clears. Review of Systems Constitutional: no fever and no chills Gastrointestinal: no abdominal pain, no nausea and no vomiting Physical Exam Constitutional: WD/WN, vitals as above Gastrointestinal (Abdomen): Inspection/Auscultation: abdomen normal to inspection; abdomen not distended Percussion/Palpation: abdomen soft; abdomen nontender and no guarding Results & Data Vital Signs (Past 12 Hours) Vital Signs Temp Pulse Resp BP Pulse Ox O2 Del Method 11/05/23 07:44 36.5 C 59 L 18 144/84 H 98 Room Air PG Care Time/CCT Total # of Minutes Spent Total Time Spent with Patient: Total time spent is greater than 50% in coordination of care (as documented) at patient's floor/unit and/or counseling patient: Coding Level of Care Code 97289 SUB INP/OBS CARE 07/02MIN Diagnoses Partial bowel obstruction K56.600 Intestinal obstruction type: unspecified (1) Partial bowel obstruction Intestinal obstruction type: unspecified Qualified Code(s): K56.600 - Partial intestinal obstruction, unspecified as to cause
--- NOTE | 2023-11-05 16:42 | Discharge Summary ---
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 Patient notes that she was on vacation 2 weeks ago and noticed that she was having some cramping in her upper left abdomen. Her symptoms fully resolved and she didn't think more on it until 3 days ago when she began having more sever periumbilical/LUQ abdominal pain which was accompanied by nausea and bilious emesis. She endorses fevers and chills over the last 3 days, denies flatus, and notes she is having mucous like loose stools. Patient denies dysuria, frequency, or suprapubic pain. She denies pain radiating to her back, but notes that she has had radiation into her left shoulder. Patient has a history of gastric bypass surgery in 2016, cholecystectomy in 2018, and a subsequent tummy tuck surgery. Patient notes that she has not eaten more than ice chips today. She has no PMH of bowel obstruction or complication of her gastric bypass. ED Course: IVF, NGT, Morphine, Zofran Principal Diagnosis Partial small bowel obstruction Discharge Exam PHYSICAL EXAMINATION Last 24h vital signs reviewed, see documentation in flowsheet General: comfortable appearing, no distress HEENT: Normocephalic, atraumatic, pupils round and equal, sclerae anicteric, no conjunctival injection, moist mucus membranes Lungs: Normal respiratory effort. Clear to auscultation bilaterally. No RRW Heart: Regular rate and rhythm, no murmurs. No JVD Abdomen: Soft, generally nontender, nondistended. Focal area of tenderness just below left lower anterior ribs without rrg. Normal Bowel sounds present. Extremities: Warm, dry, well-perfused. No extremity edema. Neuro: Alert and oriented x 4, face symmetric, moves 4 extremities well Psych: Normal affect and behavior Discharge Data Allergies Allergy/AdvReac Type Severity Reaction Status Date / Time bupropion [From Wellbutrin] AdvReac suicidal Verified 11/03/23 17:05 Consultations 11/03/23 18:45 ED Decision to Admit Stat 11/03/23 18:46 Consult General Surgery Stat Ordered Studies 11/03/23 16:07 CT Abd and Pelvis [CT abd pelvis IV con only] Stat 11/04/23 10:06 CT abd pelvis oral con only Stat Chest X-Ray 11/03/23 14:36 SINGLE VIEW CHEST CLINICAL HISTORY: Atypical chest pain FINDINGS: An AP upright chest radiograph is compared to study dated 01/28/2008. The cardiomediastinal silhouette is unremarkable. The lungs and pleural spaces are clear. No pneumothorax is seen. The bony thorax is grossly intact. Cholecystectomy clips are noted in the right upper quadrant. Suture material projects over the left upper quadrant. IMPRESSION: No active disease in the chest. ACT 112: Negative or not required by law. Electronically signed by: Bjorn Troncoso M.D. 11/03/2023 3:57 PM Abdomen/Pelvis CT 11/03/23 16:07 CT abd pelvis IV con only CLINICAL HISTORY: epigastric and diffuse abd pain TECHNIQUE: Helical axial images of the abdomen and pelvis were obtained and displayed. Automated dose lowering techniques and/or adjustment according to patient size were utilized for this exam. This exam was performed with intravenous contrast. CT DOSE: 541.28 mGy.cm COMPARISON: None available at the time of this dictation. FINDINGS: Lower chest: No acute abnormality. Liver: Unremarkable. No focal lesions are seen. Gallbladder and biliary tree: Patient is status post cholecystectomy. Physiologic prominence of the biliary ducts is noted. Pancreas: Unremarkable, no focal lesions. Spleen: Unremarkable. Adrenals: Unremarkable. Kidneys and ureters: Left angiomyolipoma noted. Bladder: Unremarkable. Reproductive organs: Unremarkable. Bowel: Diverticulosis is seen without evidence of diverticulitis. Postsurgical changes are seen of gastric bypass. There is focal dilation of the portion of small bowel just proximal to the anastomosis in the left upper quadrant, measuring up to 46 mm in diameter. The distal bowel is not under distended. Lymph nodes Retroperitoneal: Unremarkable. Pelvic: Unremarkable. Mesenteric: Unremarkable. Peritoneum: Normal. Vessels: Unremarkable. Abdominal wall: Unremarkable. Bones: Degenerative changes in the visualized spine. IMPRESSION: Partial small bowel obstruction with a transition point at the anastomosis of the Carolin-en-Y gastric bypass in the left upper quadrant. Otherwise no acute abnormalities are seen. ACT 112: Negative or not required by law. Electronically signed by: Bolivar Melchor M.D. 11/03/2023 5:05 PM KUB X-Ray 11/03/23 17:41 XR KUB/Abdomen 1 view CLINICAL HISTORY: ng tube TECHNIQUE: 1 view of the abdomen was obtained. Comparison: Comparison is made to CT abdomen pelvis 11/03/2023 FINDINGS: Enteric tube tip and side-port lie below the diaphragm. The osseous structures are grossly unremarkable., Gas pattern is not completely evaluated. IMPRESSION: Satisfactory positioning of the enteric tube. ACT 112: Negative or not required by law. Electronically signed by: Bolivar Melchor M.D. 11/03/2023 7:20 PM Abdomen/Pelvis CT 11/04/23 10:06 CT SCAN OF THE ABDOMEN AND PELVIS WITHOUT IV CONTRAST CLINICAL HISTORY: Generalized abdominal pain. Possible obstruction. COMPARISON STUDY: Abdominal CT dated 11/03/2023. TECHNIQUE: CT scan of the abdomen and pelvis is performed from the lung bases to the proximal femora. Images are reviewed in the axial, sagittal, and coronal planes. IV contrast was not administered for this examination. Note that the examination is suboptimal without IV contrast. Oral contrast was utilized. A dose lowering technique was utilized adhering to the principles of ALARA. CT DOSE: 602.7 mGy.cm FINDINGS: Lung bases: The heart is normal in size and without pericardial effusion. There is diminished attenuation of the cardiac blood pool as compared to the myocardium suggesting anemia. A 4 mm pleural-based nodule in the right upper lobe along the minor fissure as seen on image #1. There are trace pleural effusions with dependent atelectasis. No airspace consolidation is identified typical for pneumonia. Liver: The unenhanced liver is normal in size, contour, and attenuation. There is mild intrahepatic biliary ductal dilatation. Gallbladder: Surgically absent noting clips in the gallbladder fossa. Spleen: Normal in size and attenuation. Pancreas: Unremarkable. Adrenal glands: Unremarkable. Kidneys: The unenhanced kidneys are normal in size and without hydronephrosis. There are no renal calculi identified. A 1.8 cm angiomyolipoma is again seen in the upper pole of the left kidney. Abdominal vasculature: The abdominal aorta is normal in course and caliber. Stomach and bowel: An enteric tube is in place. This terminates in the proximal jejunum. Postsurgical changes consistent with a history of Carolin-en-Y gastric bypass surgery. No bowel obstruction is seen. Enteric contrast reaches the distal transverse colon. A dilated loop of small bowel in the left midabdomen on image #109 at the distal anastomosis is likely related to focal denervation. The appendix is well-visualized and normal. Peritoneum: There is no intraperitoneal free air or abdominal ascites. Lymphadenopathy: None. Pelvic viscera: The bladder is normal in appearance, and filled with excreted IV contrast. The uterus and adnexa are normal as visualized. Skeletal structures: The skeletal structures are osteopenic. There is mild/moderate lumbosacral spondylosis. Arthritic change is noted in the left hip. No lytic or blastic lesions are seen. IMPRESSION: 1. No bowel obstruction is identified. 2. An enteric tube is in place, with the tip located within the proximal jejunum. 3. Postsurgical change is consistent with prior Carolin-en-Y gastric bypass surgery. 4. Trace pleural effusions. 5. Additional findings as above. ACT 112: Negative or not required by law. Electronically signed by: Bjorn Troncoso M.D. 11/04/2023 12:42 PM Hospital Course (1) Small bowel obstruction: 63 y/o woman with history of carolin-en-y gastric bypass who presented with acute abdominal pain, nausea, and emesis x [address] - [address] A/P with IV contrast only showed partial small bowel obstruction with a transition point at the anastomosis of the Carolin-en-Y gastric bypass in the left upper quadrant. -- [facility] [place] contacted for transfer regarding patient's SBO in setting of gastric bypass -- [facility] [place] surgical team noted that these often resolve independently w/o surgical intervention, but encouraged inpt monitoring - [place] General surgery consulted while admitted - NGT placed in ED, drained bilious fluid - Repeat CT A/P with oral contrast 11/04/23 with resolution of bowel obstruction. -- Discussed results with Dr. Franklin Rosario at [facility] [place] who recommends medical management in the setting of resolved obstruction. -- [facility] [place] will call patient for outpatient follow-up appointment in 1-2 weeks. - NGT removed 11/04/23 and diet advanced to clear liquids. Tolerated low fiber diet today. -has small/focal area of abdominal wall pain at lower margin of left anterior ribs - this is likely muscular pain related from straining related to vomiting -APAP heat/ice and topical analgesics for this -return precautions discussed (2) History of gastric bypass: Plan Chronic and stable conditions: Anxiety: Continue escitalopram and propranolol ADD: Continue dextroamphetamine Osteoporosis: Continue alendronate sodium Total Time Total Time Spent Total Time Spent (In Minutes): <30 minutes Discharge Plan Discharge Items Patient Disposition: Home - Self-Care Reason For Visit: SBO, HX GASTRIC BYPASS Discharge Diagnosis: small bowel obstruction Activity: Resume your previous activity Non-emergency contact: Primary Care Provider and Surgeon Call non-emergency contact if: you have any medication questions and your symptoms worsen Follow-up/Referrals: Tiffanie Bill [Primary Care Provider] - 11/11/23 10:45 am Diet: Low Fiber Addtl Attending Provider Instructions: You were treated for small bowel obstruction - fortunately this resolved with time, bowel rest, NG tube for decompression Follow up with your bariatric surgeon soon, as planned Stay on a low fiber diet for several days to a week, if everything is going well you can start reintroducing your normal foods I think you are correct that you strained a muscle in the left upper abdomen - probably from vomiting or potentially from exercising. If so, the pain should be gradually improving and not related to meals -you can treat this with heat or ice, acetaminophen, and topical remedies - for example Voltaran gel or capsaicin Return to the ER if you have recurrence of symptoms like severe abdominal pain and vomiting Pending Studies at Discharge: No Stand-Alone Forms: My [facility], Smoking Cessation Medications and DC Order Prescriptions: New acetaminophen 325 mg Tablet 650 mg PO Q4H PRNQty: 0 0RF ondansetron 4 mg tablet,disintegrating 4 mg translingual Q6H PRN (Reason: nausea and vomiting) Qty: 14 0RF Continued multivitamin Tablet 1 tab PO DAILY melatonin 10 mg Capsule 10 mg PO HS PRN (Reason: Sleep) alendronate 70 mg tablet 70 mg PO WK Rx Instructions: take for 28 days....ordered 10/14/23 escitalopram oxalate 20 mg tablet 20 mg PO DAILY propranolol 20 mg tablet 20 mg PO .EVERY 24 HOURS PRN (Reason: Anxiety) dextroamphetamine-amphetamine 20 mg capsule,extended release 24hr 20 mg PO QAM Discharge Orders: Discharge Order (Routine); Ordered 11/05/23 Ordered By: Chantel Bryan/Other Patient Handouts: Low-Fiber Diet Admission Data Admit Date/Time: 11/03/23 19:56 Attending Provider: Chantel Barriga Admit Provider: Tee Chavez Primary Care Provider: Tiffanie Bill Other Providers: Mathieu Castaneda; Pola Oliver Other Interventions: Discharge Summary Assessment (RN) Last Done: 11/05/23 12:17 Coding Level of Care Code 66869 IN/OBS DISCH 30 MIN/LESS Diagnoses Small bowel obstruction K56.609 History of gastric bypass Z98.84
--- NOTE | 2023-11-05 19:22 | Billing Data ---
Date of Service November 05, 2023 Coding Level of Care Code 24004 INT INP/OBS CARE
== END 2023-11-05 13:06 | disposition home or self-care (01) | DRG 390 ==
LOC: ED 14:26 → 3W 19:56 → SUATTDRO 19:56 → 3W 21:21

== ENCOUNTER 2024-05-30 08:11 | Observation (INO) ==
--- OUTSIDE RECORDS SUMMARY | 2024-05-30 08:24 | External Medical Summary | Continuity of Care Document ---
Author Name Unknown Organization [facility] [address] [place], [place] [id number] Care Team Providers Care Doughnut Icer Name Role Phone Hugh Palencia Primary Care Physician [phone] Encounter [facility] [id number] Date(s): 04/06/24 - 04/06/24 [facility] [address] [facility] [address] [facility] [address] [place], [place] [phone] Encounter Diagnosis Deficiency of other specified B group vitamins(Final) - Discharge Disposition: Home or Self Care Attending Physician: DON Pepper Danielle B Referring Physician: DON Pepper Danielle B Allergies, Adverse Reactions, Alerts Substance Criticality Severity Reaction Reaction Severity Status Wellbutrin Suicidal Ideation A ctive NSAIDS (nonsteroidal anti-inflammatory agents) pt had Gastric bypass Active Immunizations Given and Recorded Vaccine Date Status [...] Comment: 2021-07-12: Historical information-source unspecified Medications Adderall 10 mg oral tablet Start: 03/08/24 4:06:00 PM EDT, 1 tab, PO, qPM, Disp# 30 tab, Refills: 0, Pharmacy: [facility] [id number] [facility] Start Date: 03/08/24 Status: Ordered Applied Nutrition Collage Start: 10/02/23 8:09:00 AM EDT, Applied Nutrition Collage Start Date: 10/02/23 Status: Ordered escitalopram 20 mg oral tablet Start: 07/20/23 9:16:00 AM EST, 1 tab, PO, Daily, Disp# 90 tab, Refills: 3, Pharmacy: [facility] [id number] [facility] Start Date: 07/20/23 Status: Ordered Medical Marijuana Start: 07/12/21 2:02:00 PM EST, 1 inh, inhaled Start Date: 07/12/21 Status: Ordered omeprazole 20 mg oral delayed release capsule TAKE 1 CAPSULE BY MOUTH IN THE MORNING AND IN THE EVENING Start Date: 12/02/23 Status: Ordered Prevagen Start: 08/23/20 4:58:00 PM EDT, Prevagen Start Date: 08/23/20 Status: Ordered propranolol 20 mg oral tablet Start: 02/29/24 8:25:00 AM EDT, 1 tab, PO, q24h, Disp# 30 tab, Refills: 0, PRN: NEEDED FOR ANXIETY, Pharmacy: [facility] [id number] [facility] Start Date: 02/29/24 Status: Ordered Siliplant Start: 10/02/23 8:09:00 AM EDT, Siliplant, Collagen boost Start Date: 10/02/23 Status: Ordered sucralfate 1 g oral tablet PLEASE SEE ATTACHED FOR DETAILED DIRECTIONS Start Date: 12/02/23 Status: Ordered Tylenol Extra Strength Start: 10/06/14 2:20:00 PM EDT, 320 mg =, PO, q6h, Takes 4 tabs between Oxycodone Start Date: 10/06/14 Status: Ordered Problem List Condition Confirmation Course Effective Dates Status H ealth Status Informant ANXIETY Confirmed 11/18/10 Active Attention deficit hyperactivity disorder Confirmed Active Cystic fibrosis carrier 1 Confirmed Active Diverticulosis of colon 2 Confirmed Active Gastric ulcer Confirmed Active Hx of gastric bypass Confirmed Active Internal hemorrhoid 3 Confirmed Active Iron deficiency Confirmed Active IRRITABLE BOWEL SYNDROME Confirmed 11/18/10 Active Migraine Confirmed Active Osteoporosis Confirmed Active OTHER FORMS OF MIGRAINE 4 Confirmed 11/18/10 Active Insomnia Confirmed Active 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 2seen on Jun 2021 colonoscopy 3seen on Jun 2021 colonoscopy 4opthalmic migraine Procedures Procedure Date Related Diagnosis Body Site [...] over 5 injection points in to the fiber heel piece shaper and procerus muscles. 9 units were injected [...] There is no evidence for bowel obstruction. [id number]: normal 22wisdom teeth removal Results Laboratory List Name Date Vitamin B12 Level (VITAMIN B12) 04/06/24 Most recent to oldest [Reference Range]: 1 B12 [211-946 pg/mL] 455 pg/mL (04/06/24 8:01 AM) Social History Social History Type Response Smoking Status Never smoked cigaret zaid Sex Female Sex Representation Female (finding) Patient Care team information Care Team Personnel Name: DON Bill Tara Position: Nurse Pract - Family Med Member Role: Lifetime Relationship Address: [address] [place] [address] Name: MD Palencia Juan Position: Physician - Family Med Member Role: Primary Care Provider Address: [address] [place] [address] Care Team Related Persons Name: DANIEL GERMAN Name: DANIEL GERMAN
--- OUTSIDE RECORDS SUMMARY | 2024-05-30 08:24 | External Medical Summary | Summary of Care ---
Author Name Unknown Organization [facility] Address [address] [place] [address] Phone [phone] Care Team Providers Care Grapple Operator Name Role Phone Hugh Palencia MD Primary Care Provider [phone] Encounter Details Date Type Department Care Team (Late st Contact Info) Description 05/18/2024 Orders Only Rheumatology [place] [facility] [place] [address] [facility] [place] [address] Nikolai Alonso PA-C [address] [facility] [address] Allergies Active Allergy Reactions Criticality Noted Date Comments Nsaids Other (Please comment) 02/29/2024 Gastric bypass-hx ulcer Bupropion Hcl Psych complications 03/21/2011 documented as of this encounter (statuses as of 05/18/2024) Medications LEXAPRO 20 MG PO TABS 1 tablet once daily Active CALCIUM CITRATE-VITAMIN D 500-500 MG-UNT/5GM PO POWD twice a day Active Multiple Vitamins-Minera ls (MACULAR HEALTH FORMULA) CAPS Take by mouth. Active sertraline (ZOLOFT) 50 MG Tablet Take 1 Tablet by mouth in the morning. Active Adderall XR 20 MG Oral Capsule Extended Release 24 Hour 1 Capsule. 10/02/2023 Ac tive Amphetamine-Dex troamphet ER 10 MG Oral Capsule Extended Release 24 Hour (Adderall XR) Take 1 Capsule by mouth in the morning. Every morning.. 08/24/2023 Active Cyclobenzaprine HCl 5 MG Oral Tablet (Flexeril) 11/11/2023 Active Propranolol HCl 20 MG Oral Tablet (Inderal) TAKE 1 TABLET BY MOUTH EVERY 24 HOURS ONLY NEEDED FOR ANXIETY Active Hospital, Clinic, or Other Facility Administered Medication Ordered Dose Route Frequency Start Date End Date Status Vitamin B-12 (Cyanocobalamin) inj 1,000 mcgIndications:Intestinal postoperative nonabsorption 1000 mcg IM [id number] 03/24/2024 Active documented as of this encounter (statuses as of 05/18/2024) Active Problems Problem Noted Date Diagnosed Date ADHD (attention deficit hype ractivity disorder), combined type 03/24/2024 Depression 03/24/2024 MERARI (generalized anxiety disorder) 03/24/2024 History of morbid obesity 11/13/2023 History of gastric bypass 11/13/2023 History of cholecystectomy 11/13/2023 Epigastric pain 11/13/2023 Marginal ulcer 11/13/2023 Marijuana smoker 11/13/2023 Joint pain, foot 01/14/2011 Joint pain, knee 01/14/2011 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 Melasma 03/02/2002 documented as of this encounter (statuses as of 05/18/2024) Resolved Problems Problem Noted Date Diagnosed Date Resolved Date Obstructive sleep apnea 04/14/201112/2023 Overview (03/09/2017): 07/14/11 CPAP 11-15 cwp 07/07/11 CPAP 14-17 cwp, Quattro S 05/23/11 CPAP 9-15 cwp, Quattro FX Care Plus Oxygen ICD-10 update of inactive term Genetic Sleep Disorder Resea [facility] Other*[id number] 03/21/2011 01/03/2016 Esophagitis 01/14/2011 11/13/2023 Overview (03/09/2017): ICD-10 update of inactive term BMI 38.0-38.9 08/30/2009 11/13/2023 Overview (08/30/2009): Per Obesity Taxonomy ADVANCE DIRECTIVE INFORMATION 10/16/2006 03/21/2011 Overview (10/16/2006): No, Advance Directive brochure offered , patient declined. OBESITY, UNSPECIFIED 03/19/2005 010 Overview (08/30/2009): Per Obesity Taxonomy NO KNOWN PROBLEMS 03/21/2011 documented as of this encounter (statuses as of 05/18/2024) Immunizations Name Administration Dates Next Due Seasonal Influenza, PF, 6 M & above, IM , (FluLaval or Fluzone) 08/02/2019 documented as of this encounter Social History Tobacco Use Types Packs/Day Years Used Date Smoking Tobacco: Former Cigarettes Smokeless Tobacco: Never Comments:Social Alcohol Use Standard Drinks/Week Comments Yes 0 (1 standard drink = 0.6 oz pur e alcohol) social Utilities Answer Date Recorded Do you have trouble paying y our heating, water, or electric bill? (Adult - for ages 18 years and over) Not on file 11/24/2023 Is your family able to pay t he heat, water, or electric bill? (Household - for ages 0-17 years) Not on file 11/24/2023 Does your family have access to good internet? (Household - for ages 0-17 years) Not on file 11/24/2023 Social Connections Answer Date Recorded How often do you feel lonely or isolated from those around you? 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 Not on file Not on file Not on file documented as of this encounter Plan of Treatment Upcoming Encounters Date Type Department Care Team (Late st Contact Info) Description 07/12/2024 8:30 AM EST Nurse Only Nutrition & Weight Management, [facility] [address] [place] [address] Nurse Yaima Vargas Nutrition [place] [address] [place] [address] 09/23/2024 10:00 AM EDT Office Visit Ophthalmology, [place] [address] [place] [address] Kwaku Mckeon DO [address] [place] [address] 11/15/2024 11:45 AM EDT [facility] [address] [place] [address] Danielle Falcon MD [address], [place] [id number] Health Maintenance Due Date Last Done Comments Depression Monitoring 1972 HIV Screening 1975 Hepatitis C Screening 1978 DTap/Tdap Vaccines (1 - Tdap) 1979 HPV/Co-Test 1990 Mammogram 2000 Cervical Cancer Screening 11/11/2004 Pap Smear 11/11/2004 11/11/2001, 11/11/2001 Cologuard 2005 Fecal Occult Blood Test 2005 Sigmoidoscopy 2005 Colonoscopy 09/06/2014 09/06/2004 Colorectal Cancer Screening 09/06/2014 COVID-19 Vaccine ( season) 2024 06/12/2021, 09/26/2020, 09/05/2020 Influenza Vaccine (FLU shot) (#1) 2024 08/02/2019 Diabetes Screening 05/12/2027 05/12/2024, 0 11/20/2023, 03/24/2014, Additional history exists Lipid Panel 05/12/2029 05/12/2024, 03/08, 05/19/2011, Additional history exists Zoster Vaccines Completed 08/24/2023, 02/27/2023 HPV (Gardasil) Vaccine Aged Out No lo nger eligible based on patient's age to complete this topic Hepatitis B Vaccine Aged Out No longe r eligible based on patient's age to complete this topic MENINGOCOCCAL (MENACTRA/MENVEO) Aged Out No longer eligible based on patient's age to complete this topic Pneumococcal Vaccine: Pediatrics (0 to 5 Years) and At-Risk Patients (6 to 64 Years) Aged Out No longer eligible based on patient's age to complete this topic documented as of this encounter Medical Devices Not on filedocumented as of this encounter Procedures Procedure Name Priority Date/Time Associated Diagnosis Comments CHEMISTRY-OUTSIDE Routine 05/12/2024 documented in this encounter Results * CHEMISTRY-OUTSIDE (05/12/2024) Not all results display below - see scan for full detail OUTSIDE LAB (SEE SCANNED REPORT) Comment:SEE SCAN; VIT B12, C MP, IRON PROFILE, FOLIC ACID, HGB A1C, LIPID, PTH, CBCD, VIT D 25 OH, METHLMALONIC AC SER, VIT B1 WHOLE, COPPER, VIT A, ZINC CREATININE 0.62 0.60 - 1.00 MG/DL OUTSIDE LAB (SEE SCANNED REPORT) EGFR >90 >60 ML/MIN/1.7 3M2 OUTSIDE LAB (SEE SCANNED REPORT) POTASSIUM 3.9 3.5 - 5.1 MMOL/L OUTSIDE LAB (SEE SCANNED REPORT) GLUCOSE 100 74 - 106 MG/DL OUTSIDE LAB (SEE SCANNED REPORT) HOURS FASTING OUTSID E LAB (SEE SCANNED REPORT) TRIGLYCERIDES-OUT SIDE LAB 68 <200 MG/DL OUTSIDE LAB (SEE SCANNED REPORT) CHOLESTEROL-OUTSI DE LAB 196 125 - 200 MG/DL OUTSIDE LAB (SEE SCANNED REPORT) HDL-OUTSIDE LAB 98 >35 MG/DL OUTS FELIX LAB (SEE SCANNED REPORT) CHOL/HDL RATIO-OUTSIDE LAB OUTSIDE LA B (SEE SCANNED REPORT) LDL (CALCULATED)-OUTS FELIX LAB 84 50 - 130 MG/DL OUTSIDE LAB (SEE SCANNED REPORT) LDL (DIRECT MEASURE)-OUTSIDE LAB OUTSIDE LAB (SEE SCANNED REPORT) HEMOGLOBIN, L5H-GRXGAOG LAB 5.0 4.0 - 6.0 % OUTSIDE LAB (SEE SCANNED REPORT) PHOSPHORUS-OUTSID E LAB OUTSIDE LAB (SEE SCANNED REPORT) PTH-OUTSIDE LAB 31.3 15.0 - 65.0 PG/ML OUTSIDE LAB (SEE SCANNED REPORT) MICROALBUMIN RATIO-OUTSIDE LAB OUTSIDE LA B (SEE SCANNED REPORT) PROTEIN, UA-OUTSIDE LAB OUTSIDE LAB (SEE SCANNED REPORT) HGB 14.2 11.7 - 15.0 G/DL OUTSIDE LAB (SEE SCANNED REPORT) 05/12/2024 Nikolai Alonso PA-C LABORATORY Final Resu lt OUTSIDE LAB (SEE SCANNED REPORT) documented in this encounter Advance Directives * Full Code (Latest Code Status on File) Date Activated Date Inactivated Comments 11/20/2023 11:09 AM 11/20/2023 7:17 PM Question Answer Comments Discussion of Advance Direct brigida occurred with: Not Discussed due to patient's condition * Full Code Date Activated Date Inactivated Comments 03/22/2012 11:53 AM 03/22/2012 5:44 PM This orde r reflects the patients wishes and were consensually agreed upon. Question Answer Comments Discussion of Advance Directives occurred with: Not Discussed Does the patient have a Living Will? No Does the patient have Health Care Power of Attor cedrick? No * Full Code Date Activated Date Inactivated Comments 03/22/2012 8:49 AM 03/22/2012 11:53 AM This orde r reflects the patients wishes and were consensually agreed upon. * Full Code Date Activated Date Inactivated Comments 07/21/2011 10:53 AM 07/22/2011 10:13 PM This order reflects the patients wishes and were consensually agreed upon. * Full Code Date Activated Date Inactivated Comments 07/21/2011 10:05 AM 07/21/2011 10:53 AM This order reflects the patients wishes and were consensually agreed upon. Care Teams Grapple Operator Relationship Specialty Start Date End Date Hugh Palencia MD [address] [place] [address] PCP - General Family Medicine 03/24/14 documented as of this encounter
--- OUTSIDE RECORDS SUMMARY | 2024-05-30 08:24 | External Medical Summary | Summary of Care ---
Author Name Unknown Organization [facility] Address [address] [facility] [place] [address] Phone [phone] Care Team Providers Care Banquet Coordinator Name Role Phone Hugh Palencia MD Primary Care Provider [phone] Encounter Details Date Type Department Care Team (Late st Contact Info) Description 05/18/2024 Telephone Ophthalmology, [place] [address] [place] [address] Kwaku Mckeon DO [address] [facility] [place] [address] Allergies Active Allergy Reactions Criticality Noted Date [...] 1,000 mcgIndications:Intestinal postoperative nonabsorption 1000 mcg IM [id number] 03/24/2024 Active documented as of this encounter [...] of inactive term Genetic Sleep Disorder Resea [facility] Other*[id number] 03/21/2011 01/03/2016 Esophagitis 01/14/2011 11/13/2023 Overview (03/09/2017): [...] 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 Mckeon team and will be notified to schedule evaluation if she is agreeable. Ayanna Urbina RN 05/18/2024 8:16 AM documented in this encounter Plan of Treatment Upcoming Encounters Date Type Department Care Team (Late st Contact Info) Description 07/12/2024 8:30 AM EST Nurse Only Nutrition & Weight Management, [facility] [address] [place] [address] Sam, Nurse Gi Nutrition [facility] [address] [place] [address] 09/23/2024 10:00 AM EDT Office Visit Ophthalmology, [place] [address] [address] Kwaku Mckeon DO [address] [place] [address] 11/15/2024 11:45 AM EDT Office Visit General Surgery, [place] [address] [place] [address] Danielle Falcon MD [address] [place], [place] [phone] Health Maintenance Due Date Last Done Comments Depression Monitoring 1972 HIV Screening 1975 Hepatitis C Screening 1978 DTap/Tdap Vaccines (1 - Tdap) 1979 HPV/Co-Test 1990 Mammogram 2000 Cervical Cancer Screening 11/11/2004 Pap Smear 11/11/2004 11/11/2001, 11/11/2001 Cologuard 2005 Fecal Occult Blood Test 2005 Sigmoidoscopy 2005 Colonoscopy 09/06/2014 09/06/2004 Colorectal Cancer Screening 09/06/2014 Lipid Panel 03/24/2019 03/24/2014, 05/08, 01/30/2011 COVID-19 Vaccine ( season) 2024 06/12/2021, 09/26/2020, 09/05/2020 Influenza Vaccine (FLU shot) (#1) 2024 08/02/2019 Diabetes Screening 11/19/2026 11/20/2023, 1 , 07/12/2012, Additional history exists Zoster Vaccines Completed 08/24/2023, [...] Not on filedocumented as of this encounter Advance Directives * Full Code [...] and were consensually agreed upon. Care Teams Banquet Coordinator Relationship Specialty Start Date End Date Hugh Palencia MD [address] [place] [address] PCP - General Family Medicine 03/24/14 documented as of this encounter
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
--- OUTSIDE RECORDS SUMMARY | 2024-05-30 08:24 | External Medical Summary | Summary of Care ---
Author Name Unknown Organization [facility] Address [address] [place] [address] Phone [phone] Care Team Providers Care Binder Fixer Name Role Phone Hugh Palencia MD Primary Care Provider Reason for Visit * Reason Comments Nurse Documentation B12 Encounter Details Date Type Department Care Team (Late st Contact Info) Description 04/11/2024 8:30 AM EST Nurse Only Nutrition & Weight Management, [facility] [address] [place] [address] [facility], Nurse Gi Nutrition [facility] [address] [place] [address] Nurse Documentation (B12) Allergies Active Allergy Reactions Criticality Noted Date Comments Nsaids Other (Please comment) 02/29/2024 Gastric bypass-hx ulcer Bupropion Hcl Psych complications 03/21/2011 documented as of this encounter (statuses as of 04/11/2024) Medications Medication Sig Dispensed Refills Start Date End Date Status LEXAPRO 20 MG PO TABS 1 tablet once daily Active CALCIUM CITRATE-VITAMIN D 500-500 MG-UNT/5GM PO POWD twice a day Active Multiple Vitamins-Minerals (MACULAR HEALTH FORMULA) CAPS Take by mouth. Active sertraline (ZOLOFT) 50 MG Tablet Take 1 Tablet by mouth in the morning. Active Adderall XR 20 MG Oral Capsule Extended Release 24 Hour 1 Capsule. 10/02/2023 Active Amphetamine-Dextroamph et ER 10 MG Oral Capsule Extended Release [...] 1,000 mcgIndications:Intestinal postoperative nonabsorption 1000 mcg IM [id number] 03/24/2024 Active documented as of this encounter (statuses as of 04/11/2024) Active Problems Problem Noted Date Diagnosed Date [...] as of this encounter (statuses as of 04/11/2024) Resolved Problems Problem Noted Date Diagnosed Date Resolved Date Obstructive sleep apnea 04/14/2011 06/0 12/2023 Overview: 07/14/11 CPAP 11-15 cwp 07/07/11 CPAP 14-17 cwp, Quattro S 05/23/11 CPAP 9-15 cwp, Quattro FX Care Plus Oxygen ICD-10 update of inactive term Genetic Sleep Disorder [facility] Other*[id number] 03/21/2011 01/03/2016 Esophagitis 01/14/2011 11/13/2023 Overview: ICD-10 update of inactive term BMI 38.0-38.9 08/30/2009 11/13/2023 Overview: Per Obesity Taxonomy ADVANCE DIRECTIVE INFORMATION 10/16/2006 03/21/2011 Overview: No, Advance Directive brochure offered , patient declined. OBESITY, UNSPECIFIED 03/19/2005 010 Overview: Per Obesity Taxonomy NO KNOWN PROBLEMS 03/21/2011 documented as of this encounter (statuses as of 04/11/2024) Immunizations Name Administration Dates Next Due Seasonal [...] years and over) Not on file 11/24/2023 Sex and Gender Information Value Date Recorded Sex Assigned at Not on file Gender Identity Not on file Sexual Orientation Not on file Job Start Date Occupation Industry Not on file Not on file Not on file documented as of this encounter Last Filed Vital Signs Vital Sign Reading Time Taken Comments Blood Pressure - - Pulse - - Temperature - - Respiratory Rate - - Oxygen Saturation - - Inhaled Oxygen Concentration - - Weight 56.5 kg (124 lb 9.6 oz) 04/11/2024 8:45 A M EST Height 167.6 cm (5' 6") 04/11/2024 8:45 AM EST Body Mass Index 20.11 04/11/2024 8:45 AM EST documented in this encounter Nursing Notes * Rahat Mittal LPN - 04/11/2024 8:34 AM EST Chief Complaint Patient presents with Nurse Documentation B12 documented in this encounter Plan of Treatment Upcoming Encounters Date Type Department Care Team (Late st Contact Info) Description 04/22/2024 9:00 AM EST Office Visit Ophthalmology, [facility] [address] [place] [address] Kalyan Luna MD [address] [place] [address] 07/12/2024 8:30 AM EST Nurse Only Nutrition & Weight Management, [facility] [address] [facility] [place] [address] [facility], Nurse Gi Nutrition [facility] [address] [facility] [place] [address] 11/15/2024 11:45 AM EDT Office Visit General Surgery, [place] [address] [place] [address] Danielle Falcon MD [address] [place] [address] Health Maintenance Due Date Last Done Comments [...] Not on filedocumented as of this encounter Administered Medications Active Administered Medications - up to 3 most recent administrations Medication Order MAR Action Action Date Dose Rate Site Vitamin B-12 (Cyanocobalamin) inj 1,000 mcg 1,000 mcg, Intramuscular, [id number], First dose on Tressa 03/24/24 at 1245, Until Discontinued Given 04/11/2024 8:40 AM EST 1,000 mcg Deltoid Left Upper documented in this encounter Advance Directives * [...] and were consensually agreed upon. Care Teams Binder Fixer Relationship Specialty Start Date End Date Hugh Palencia MD [address] [place] [address] PCP - General Family Medicine 03/24/14 documented as of this encounter
--- OUTSIDE RECORDS SUMMARY | 2024-05-30 08:24 | External Medical Summary | Summary of Care ---
Author Name Unknown Organization [facility] Address [address] [place] [address] Phone [phone] Care Team Providers Care Oil Distributor Name Role Phone Hugh Palencia MD Primary Care Provider [phone] Reason for Visit * Reason Comments Nurse Documentation B12 Encounter Details Date Type Department Care Team (Late st Contact Info) Description 04/11/2024 8:30 AM EST Nurse Only Nutrition & Weight Management, [facility] [address] [place] [address] [facility], Nurse Gi Nutrition [facility] [address] [place] [address] Nurse Documentation (B12) Allergies Active Allergy Reactions [...] 1,000 mcgIndications:Intestinal postoperative nonabsorption 1000 mcg IM [id number] 03/24/2024 Active documented as of this encounter [...] of inactive term Genetic Sleep Disorder Resea [facility] Other*[id number] 03/21/2011 01/03/2016 Esophagitis 01/14/2011 11/13/2023 Overview: ICD-10 [...] documented in this encounter Nursing Notes * Rahta Mittal LPN - 04/11/2024 8:34 AM EST Chief Complaint Patient presents with Nurse Documentation B12 documented in this encounter Plan of Treatment Upcoming Encounters Date Type Department Care Team (Late st Contact Info) Description 04/22/2024 9:00 AM EST Office Visit Ophthalmology, [facility] [address] [place] [address] Kalyan Luna MD [address] [place] [address] [place] [address] 07/12/2024 8:30 AM EST Nurse Only Nutrition & Weight Management, [facility] [address] [facility] [place] [address] [facility], Nurse Gi Nutrition [facility] [address] [facility] [place] [address] 11/15/2024 11:45 AM EDT Office Visit General Surgery, [place] [address] [place] [address] Danielle Falcon MD [address] [place] [address] Health Maintenance Due Date Last Done Comments [...] (Cyanocobalamin) inj 1,000 mcg 1,000 mcg, Intramuscular, [id number], First dose on Tressa 03/24/24 at 1245, [...] and were consensually agreed upon. Care Teams Oil Distributor Relationship Specialty Start Date End Date Hugh Palencia MD [address] [place] [address] PCP - General Family Medicine 03/24/14 documented as of this encounter
--- OUTSIDE RECORDS SUMMARY | 2024-05-30 08:25 | External Medical Summary | Continuity of Care Document ---
Author Name Unknown Organization [facility] [address] [place], [place] [id number] Care Team Providers Care Chief Ultrasound Technologist Name Role Phone Hugh Palencia Primary Care Physician [phone] [id number] Date(s): 04/06/24 - 04/06/24 [facility] [address] [facility] [address] [facility] [address] [place], [phone] Encounter Diagnosis Iron deficiency(Final) - Gastric ulcer, unspecified as acute or chronic, without hemorrhage or perforation(Final) - Discharge Disposition: Home or Self Care Attending Physician: DO Borja Allison B Referring Physician: DO Borja Allison B Allergies, Adverse Reactions, Alerts Substance Criticality [...] qPM, Disp# 30 tab, Refills: 0, Pharmacy: [facility] [id number] [facility] Start Date: 03/08/24 Status: Ordered Applied Nutrition Collage Start: 10/02/23 8:09:00 AM EDT, Applied Nutrition Collage Start Date: 10/02/23 Status: Ordered escitalopram 20 mg oral tablet Start: 07/20/23 9:16:00 AM EST, 1 tab, PO, Daily, Disp# 90 tab, Refills: 3, Pharmacy: [facility] [id number] [facility] Start Date: 07/20/23 Status: Ordered [...] Refills: 0, PRN: NEEDED FOR ANXIETY, Pharmacy: [facility] [id number] [facility] Start Date: 02/29/24 Status: Ordered [...] over 5 injection points in to the no bake molder and procerus muscles. 9 units were injected [...] There is no evidence for bowel obstruction. [id number]: normal 22wisdom teeth removal Results Laboratory List Name Date Complete Blood Count w Differential (CBC ,DIFFH) 04/06/24 Comprehensive Metabolic Panel (COMP META B PANEL) 04/06/24 Ferritin (FERRITIN) 04/06/24 Iron Profile (IRON PROFILE) 04/06/24 Thyroid Stimulating Hormone (TSH) Most recent to oldest [Reference Range]: 1 eGFR CKD-EPI [>60 mL/min/1.73 m2] >90 mL /min/1.73 m2 1 (04/06/24 8:00 AM) Estimated CrCl 89.77 mL/min (04/06/24 8:42 AM) MPV [9.0-12.2 fL] 10.2 fL (04/06/24 8:00 AM) Immature Gran% 0.4 % (04/06/24 8:00 AM) Neut% 56.2 % (04/06/24 8:00 AM) Lymph% 33.0 % (04/06/24 8:00 AM) Rawlins% 7.9 % (04/06/24 8:00 AM) Baso% 1.6 % (04/06/24 8:00 AM) Eos% 0.9 % (04/06/24 8:00 AM) Immat Gran, Abs [0-0.4 K/uL] 0.02 K/uL (04/06/24 8:00 AM) Neut, Abs [2.0-7.7 K/uL] 3.07 K/uL (04/06/24 8:00 AM) Lymph, Abs [1.0-3.4 K/uL] 1.80 K/uL (04/06/24 8:00 AM) Rawlins, Abs [0-1.0 K/uL] 0.43 K/uL (04/06/24 8:00 AM) Baso, Abs [0-0.1 K/uL] 0.09 K/uL (04/06/24 8:00 AM) Eos, Abs [0-0.5 K/uL] 0.05 K/uL (04/06/24 8:00 AM) Type of Diff: AUTO *Unknown* (04/06/24 8:00 AM) RDW [11.5-14.2 %] 14.3 % *HI* (04/06/24 8:00 AM) Anion Gap [5-14 mmol/L] 7 mmol/L (04/06/24 8:00 AM) Alb [3.5-5.0 g/dL] 4.3 g/dL (04/06/24 8:00 AM) Alk Phos [38-126 unit/L] 77 unit/L (04/06/24 8:00 AM) ALT [<35 unit/L] 30 unit/L (04/06/24 8:00 AM) AST [15-46 unit/L] 34 unit/L (04/06/24 8:00 AM) BUN [7-20 mg/dL] 26 mg/dL *HI* (04/06/24 8:00 AM) Ca [8.4-10.2 mg/dL] 9.5 mg/dL (04/06/24 8:00 AM) Cl- [96-107 mmol/L] 104 mmol/L (04/06/24 8:00 AM) HCO3 [22-30 mmol/L] 29 mmol/L (04/06/24 8:00 AM) Cret [0.60-1.00 mg/dL] 0.56 mg/dL *LOW* (04/06/24 8:00 AM) Iron [37-145 ug/dL] 128 ug/dL (04/06/24 8:00 AM) Ferritin [11.1-264.0 ng/mL] 188.5 ng/mL 2 (04/06/24 8:00 AM) Glu [74-106 mg/dL] 89 mg/dL (04/06/24 8:00 AM) Hct [35-44 %] 44.0 % (04/06/24 8:00 AM) Hgb [11.7-15.0 g/dL] 14.3 g/dL (04/06/24 8:00 AM) K [3.5-5.1 mmol/L] 4.3 mmol/L (04/06/24 8:00 AM) MCH [28-33 pg] 29.7 pg (04/06/24 8:00 AM) MCHC [32-36 g/dL] 32.5 g/dL (04/06/24 8:00 AM) MCV [81-96 fL] 91.3 fL (04/06/24 8:00 AM) Na [137-145 mmol/L] 140 mmol/L (04/06/24 8:00 AM) Plts [150-350 K/uL] 319 K/uL (04/06/24 8:00 AM) RBC [3.90-5.00 M/uL] 4.82 M/uL (04/06/24 8:00 AM) Fe Sat [14-50 %] 49 % (04/06/24 8:00 AM) T Bili [0.2-1.3 mg/dL] 0.9 mg/dL (04/06/24 8:00 AM) Total IBC [250-400 ug/dL] 263 ug/dL (04/06/24 8:00 AM) Prot [6.3-8.2 g/dL] 7.4 g/dL (04/06/24 8:00 AM) Transferrin [200-360 mg/dL] 223 mg/dL (04/06/24 8:00 AM) TSH [0.47-4.68 uIU/mL] 0.46 uIU/mL 3 *LOW* (04/06/24 8:00 AM) WBC [4.0-10.4 K/uL] 5.46 K/uL (04/06/24 8:00 AM) 1Result Comment: Testing Performed By: Dept of Pathology [facility], [address] [place] [address] 2Result Comment: Testing Performed By: Dept of Pathology [facility], [address] [place] [address] 3Result Comment: Testing Performed By: Dept of Pathology [facility], [address] [place] [address] Social History Social History Type Response Smoking Status Never smoked cigaret zaid Sex Female Sex Representation Female (finding) Patient Care team information Care Team Personnel Name: DON Bill Tara Position: Nurse Pract - Family Med Member Role: Lifetime Relationship Address: [address] [place] [address] [place] Name: MD Palencia Juan Position: Physician - Family Med Member Role: Primary Care Provider Address: [address] [place] [address] [place] Care Team Related Persons Name: DANIEL GERMAN Name: DANIEL GERMAN
[2024-05-30 09:03] LABS: Basophils % (auto) 1.2 %; Eosinophils # (auto) 0.06 K/uL (0.00-0.50); Eosinophils % (auto) 0.7 %; Hematocrit (blood only) 37.4 % (37.0-47.0); Hemoglobin 12.5 g/dl (12.0-16.0); Immature Granulocytes # (auto) 0.03 K/uL (0.01-0.20); Immature Granulocytes % (auto) 0.4 %; Lymphocytes # (auto) 2.17 K/uL (1.20-3.40); Lymphocytes % (auto) 25.4 %; Mean Corpuscular Hemoglobin 30.5 pg (25.0-34.0); Mean Corpuscular Hgb Conc 33.4 g/dL (32.0-36.0); Mean Corpuscular Volume 91.2 fL (80.0-100.0); Monocytes # (auto) 0.32 K/uL (0.11-0.59); Monocytes % (auto) 3.7 %; Neutrophils # (auto) 5.88 K/uL (1.40-6.50); Neutrophils % (auto) 68.6 %; Platelet Count 354 K/uL (130-400); RDW Coefficient of Variation 14.1 % (11.5-14.5); RDW Standard Deviation 47.6 fL (36.4-46.3); White Blood Count 8.56 K/ul (4.8-10.8)
--- NOTE | 2024-05-30 09:07 | Emergency Department Note ---
Impression & Plan Acute GI bleeding, History of gastric bypass ED Provider Note NAME: LALA ALBERTO AGE: 63 SEX: Female INFORMANT: Patient ED PROVIDER(S): Syed Sahu MD CHIEF COMPLAINT: GI bleed PLAN: Disposition: Admitted Outpatient prescription management: none Referral: None MEDICAL DECISION MAKING: Patient presented because of concerns for GI bleed. She was given Pepcid and Protonix IV. Stool was Hemoccult positive. Her labs were unremarkable except for elevated BUN. Given her history of bypass and ulcers gastroenterology was consulted. Discussed the case with Dr. Lorenz. He did recommend the patient for endoscopy. Consultation was made with Dr. Jaylen Saenz of the [facility] service. Patient was evaluated in the ER for further management. Care/management discussed with: none Level of care consideration(s): After review of the information above and other included data, I feel the patient requires escalation of care to admission Triage Nursing notes: reviewed and agree them. Vital Signs: reviewed and remarkable for no significant abnormalities Additional History obtained from: none Chronic Medical/Social Conditions affecting care: Gastric bypass status Prior/ Outside/ External records reviewed: none Differential Diagnosis: Marginal ulcer, diverticulosis, AVM, coagulopathy, colitis, inflammatory bowel disease, malignancy, Tiny-Keller tear, esophagitis, peptic ulcer disease, variceal bleed, gastritis, epistaxis, fissure, hemorrhoids, as well as other pathologies. Diagnostics, independently interpreted by me: ECG: Twelve-lead ECG reveals normal sinus rhythm at 84 beats per minute. No evidence of pericarditis, ischemia, ectopy, or dysrhythmia. Cardiac Monitoring: Cardiac monitoring ordered by me: The patient was placed on continuous cardiac monitoring and observed. It revealed a normal sinus rhythm at 79 beats per minute without ectopy or evidence of dysrhythmia. Medical decision rules: none Imaging studies: CT scan abdomen and pelvis is negative for acute process. I refer you to the EMR for further details. HPI: 63 year old Female arrives for evaluation of GI bleed. This started over the last several days and is worsening. The patient also notes the following associated symptoms, dark tarry stool, bloody stool, nausea and vomiting, nasal congestion, intermittent mid abdominal pain. The patient has taken no medication for relieving factors. Current pain is rated as 0/10. Patient has a history of gastric bypass. She also has a history of marginal ulcers about 12 years ago. Denies any NSAID use. Pt denies LOC, headache, fevers, chills, diaphoresis, visual changes, neck pain, chest pain, breathing difficulties, back pain, melena, hematochezia, urinary symptoms, numbness, weakness, lymphadenopathy, rash, or other complaints.. PAST MEDICAL HISTORY: See Below, peptic ulcer disease PAST SURGICAL HISTORY: See Below, gastric bypass SOCIAL HISTORY: See Below, uses marijuana HOME MEDICATIONS: See Below ALLERGIES: See Below VITALS: See Below PHYSICAL EXAMINATION: GENERAL: Awake, alert, well-appearing, in no distress HENT: Normocephalic, atraumatic. Oropharynx unremarkable. EYES: Normal conjunctiva. Sclera non-icteric. NECK: Inspection normal. Non-tender. Supple. No nuchal rigidity. FROM. No masses. RESPIRATORY: Clear to auscultation. No wheezes. No rales. Normal respiratory effort. CARDIAC: Normal rate. Normal rhythm. No murmurs. No rubs. Extremities warm and well perfused. Pulses equal. No JVD. GI: Soft, non-distended. Midline tenderness to palpation. No rebound or guarding. No masses. RECTAL: Deferred. MUSCULOSKELETAL: Atraumatic. Chest examination reveals no tenderness. The back is symmetrical on inspection without obvious abnormality. There is no CVA tenderness to palpation. No joint edema. LOWER EXTREMITIES: Calves are equal size bilaterally and non-tender. No edema. No discoloration. NEURO: Normal sensorium. No sensory or motor deficits noted. SKIN: No rash or jaundice noted. PROCEDURES: none CRITICAL CARE: none OBSERVATION NOTE: none Past Med/Surg History Problem List Rhinovirus History of gastric bypass (Acute) Acute GI bleeding (Acute) Vomiting (Acute) Anemia (Acute) Facial laceration Medical History Small bowel obstruction Irritable bowel syndrome with diarrhea Anxiety Surgical History H/O abdominoplasty (06/14/19) and brachioplasty History of cholecystectomy History of gastric bypass 8yrs ago, previously dx with ALYSSA, resolved with wt loss. History of esophagogastroduodenoscopy (EGD) History of colonoscopy Family History Other No family history of adverse response to anesthesia Social History Smoking Status: Former smoker Tobacco Type: E-cigarettes / Vaping Second Hand Exposure: No; Do You Dip or Chew Tobacco: No; Tobacco Cessation Education Requested by Patient: No Hx Alcohol Use: No Hx Substance Use: No Preferred Language: Northern Irish Communication Ability: Effective Manganese Heater Required: No Beliefs That Will Affect Care: Gnosticist Current Living Situation: Spouse Other Information That Helps Us Care for You: No Feels Safe at Home: Yes Safety Concerns: Feels Safe At This Time Assistive Devices: None Allergies Allergies Allergy/AdvReac Type Severity Reaction Status Date / Time NSAIDS (Non-Steroidal AdvReac Severe Gastrointestinal Verified 05/30/24 14:37 Anti-Inflamma Upset bupropion [From Wellbutrin] AdvReac suicidal Verified 05/30/24 14:36 Home Meds Home Medications Medication Instructions Recorded Confirmed multivitamin 1 tab PO DAILY 05/30/19 05/30/24 melatonin 10 mg capsule 10 mg PO HS PRN Sleep 06/13/19 05/30/24 alendronate 70 mg tablet 70 mg PO WK 11/03/23 05/30/24 escitalopram oxalate 20 mg tablet 20 mg PO DAILY 11/03/23 05/30/24 propranolol 20 mg tablet 20 mg PO .EVERY 24 HOURS PRN 11/03/23 05/30/24 Anxiety B12 1 tab PO DAILY 05/30/24 05/30/24 Vitamin D3 1 tab PO DAILY 05/30/24 05/30/24 dextroamphetamine-amphetamine 10 5 mg PO .AFTERNOON PRN Other 05/30/24 05/30/24 mg tablet dextroamphetamine-amphetamine 10 10 mg PO QAM 05/30/24 05/30/24 mg tablet iron 1 tab PO DAILY 05/30/24 05/30/24 Previous Rx's Medication Instructions Recorded acetaminophen 325 mg tablet 650 mg (2 x 325 mg) PO Q4H PRN #0 11/05/23 tabs ondansetron 4 mg disintegrating 4 mg translingual Q6H PRN nausea 11/05/23 tablet and vomiting #14 tabs Results & Data (ED) Vital Signs Vital Signs - 24 hr 05/30/24 08:21 05/30/24 08:35 05/30/24 08:47 Temperature 36.3 C L Temperature Source Temporal Artery Scan Pulse Rate 106 H 82 88 Pulse Rate from SpO2 Sensor Pulse Rhythm Regular Regular Respiratory Rate 20 18 12 Respiratory Effort / Characteristics Non-Labored Spontaneous Respiratory Depth Normal Respiratory Pattern Regular Blood Pressure 136/87 Blood Pressure Mean 103 Pulse Oximetry 100 100 100 Oxygen Delivery Method Room Air Room Air Room Air Sepsis Recent Fever Within 48 Hours No Sepsis New/Unexplained Change in Mental Status N/A Sepsis Action Taken by Nursing No Action Required 05/30/24 08:47 05/30/24 08:57 05/30/24 09:00 Temperature Temperature Source Pulse Rate 83 82 79 Pulse Rate from SpO2 Sensor 77 Pulse Rhythm Respiratory Rate 14 14 Respiratory Effort / Characteristics Respiratory Depth Respiratory Pattern Blood Pressure 138/73 144/74 H Blood Pressure Mean 94 97 Pulse Oximetry 100 94 Oxygen Delivery Method Room Air Sepsis Recent Fever Within 48 Hours Sepsis New/Unexplained Change in Mental Status Sepsis Action Taken by Nursing Laboratory Data 05/30/24 15:35 05/30/24 08:38 Lab Results 05/30/24 05/30/24 05/30/24 Range/Units 08:38 08:47 10:44 WBC 8.56 (4.8-10.8) K/ul RBC 4.10 L (4.20-5.40) M/uL Hgb 12.5 (12.0-16.0) g/dl Hct 37.4 (37.0-47.0) % MCV 91.2 (80.0-100.0) fL MCH 30.5 (25.0-34.0) pg MCHC 33.4 (32.0-36.0) g/dL RDW Std Deviation 47.6 H (36.4-46.3) fL RDW Coeff of Ritika 14.1 (11.5-14.5) % Plt Count 354 (130-400) K/uL MPV 10.0 (9.4-12.4) fL Immature Gran % (Auto) 0.4 % Neut % (Auto) 68.6 % Lymph % (Auto) 25.4 % [place] % (Auto) 3.7 % Eos % (Auto) 0.7 % Baso % (Auto) 1.2 % Neut # (Auto) 5.88 (1.40-6.50) K/uL Lymph # (Auto) 2.17 (1.20-3.40) K/uL [place] # (Auto) 0.32 (0.11-0.59) K/uL Eos # (Auto) 0.06 (0.00-0.50) K/uL Baso # (Auto) 0.10 (0.00-0.20) K/uL Immature Gran # (Auto) 0.03 (0.01-0.20) K/uL PT 10.5 (9.0-12.0) Seconds INR 1.0 (0.9-1.1) APTT 23 (21-31) Seconds PTT Ratio 0.9 Sodium 141 (136-145) mmol/L Potassium 3.7 (3.5-5.1) mmol/L Chloride 107 (98-107) mmol/L Carbon Dioxide 26 (21-32) mmol/L Anion Gap 8 (3-11) BUN 30 H (6-23) mg/dl Creatinine 0.59 L (0.6-1.2) mg/dl Est Cr Clr Drug Dosing 81.7 ml/min eGFR 101.20 BUN/Creatinine Ratio 50.8 H (10-20) Glucose 125 H (70-99(Fasting)) mg/dl Calcium 9.5 (8.6-10.3) mg/dl Total Bilirubin 0.6 (0.2-1.0) mg/dl AST 21 (13-39) U/L ALT 17 (7-52) U/L Alkaline Phosphatase 66 (34-104) U/L Total Protein 7.4 (6.0-8.3) gm/dl Albumin 4.6 (3.4-5.0) gm/dl Globulin 2.8 (2.5-4.0) gm/dl Albumin/Globulin Ratio 1.6 (0.9-2) POC Stool Occult Blood (Negative) Stl C. cayetanensis PCR (NotDetected) Stool Rotavirus A PCR (NotDetected) Stl Adenov F 40/41 PCR (NotDetected) Stool Astrovirus (PCR) (NotDetected) Stool Campylobacter PCR (NotDetected) Stl C. diff Tox B Gene (Neg) Stool Cryptosporidium PCR (NotDetected) Stl E.coli Shiga Tox PCR (NotDetected) Stl Enterotoxigenic E PCR (NotDetected) Stool EPEC (PCR) (NotDetected) Stool EAEC (PCR) (NotDetected) Stl E. histolytica PCR (NotDetected) Stool Giardia Lamblia PCR (NotDetected) Stool Salmonella PCR (NotDetected) Stool Sapovirus (PCR) (NotDetected) Stl P. shigelloides PCR (NotDetected) Stl Shigella/EIEC PCR (NotDetected) St Y.enterocolitica PCR (NotDetected) Stool Vibrio (PCR) (NotDetected) Stl Vibrio cholerae PCR (NotDetected) Stl Norovirus GI/GII PCR (NotDetected) Adenovirus (PCR) Not Detected (NotDetected) B. pertussis DNA (PCR) Not Detected (NotDetected) B.parapertussis DNA PCR Not Detected (NotDetected) C. pneumoniae DNA (PCR) Not Detected (NotDetected) Coronavirus OC43 (PCR) Not Detected (NotDetected) Coronavirus HKU1 (PCR) Not Detected (NotDetected) Coronavirus 229E (PCR) Not Detected (NotDetected) SARS-CoV-2 (PCR) Not Detected (NotDetected) Coronavirus NL63 (PCR) Not Detected (NotDetected) Human Metapneumovir PCR Not Detected (NotDetected) Influenza Type A (PCR) Not Detected (NotDetected) Influenza Type B (PCR) Not Detected (NotDetected) M. pneumoniae (PCR) Not Detected (NotDetected) Parainfluenza 1 (PCR) Not Detected (NotDetected) Parainfluenza 2 (PCR) Not Detected (NotDetected) Parainfluenza 3 (PCR) Not Detected (NotDetected) Parainfluenza 4 (PCR) Not Detected (NotDetected) RSV (PCR) Not Detected (NotDetected) Entero/Rhino (PCR) DETECTED A (NotDetected) Blood Type O Positive Antibody Screen NEGATIVE 05/30/24 05/30/24 Range/Units 11:04 11:40 WBC (4.8-10.8) K/ul RBC (4.20-5.40) M/uL Hgb (12.0-16.0) g/dl Hct (37.0-47.0) % MCV (80.0-100.0) fL MCH (25.0-34.0) pg MCHC (32.0-36.0) g/dL RDW Std Deviation (36.4-46.3) fL RDW Coeff of Ritika (11.5-14.5) % Plt Count (130-400) K/uL MPV (9.4-12.4) fL Immature Gran % (Auto) % Neut % (Auto) % Lymph % (Auto) % [place] % (Auto) % Eos % (Auto) % Baso % (Auto) % Neut # (Auto) (1.40-6.50) K/uL Lymph # (Auto) (1.20-3.40) K/uL [place] # (Auto) (0.11-0.59) K/uL Eos # (Auto) (0.00-0.50) K/uL Baso # (Auto) (0.00-0.20) K/uL Immature Gran # (Auto) (0.01-0.20) K/uL PT (9.0-12.0) Seconds INR (0.9-1.1) APTT (21-31) Seconds PTT Ratio Sodium (136-145) mmol/L Potassium (3.5-5.1) mmol/L Chloride (98-107) mmol/L Carbon Dioxide (21-32) mmol/L Anion Gap (3-11) BUN (6-23) mg/dl Creatinine (0.6-1.2) mg/dl Est Cr Clr Drug Dosing ml/min eGFR BUN/Creatinine Ratio (10-20) Glucose (70-99(Fasting)) mg/dl Calcium (8.6-10.3) mg/dl Total Bilirubin (0.2-1.0) mg/dl AST (13-39) U/L ALT (7-52) U/L Alkaline Phosphatase (34-104) U/L Total Protein (6.0-8.3) gm/dl Albumin (3.4-5.0) gm/dl Globulin (2.5-4.0) gm/dl Albumin/Globulin Ratio (0.9-2) POC Stool Occult Blood Positive A (Negative) Stl C. cayetanensis PCR Not Detected (NotDetected) Stool Rotavirus A PCR Not Detected (NotDetected) Stl Adenov F 40/41 PCR Not Detected (NotDetected) Stool Astrovirus (PCR) Not Detected (NotDetected) Stool Campylobacter PCR Not Detected (NotDetected) Stl C. diff Tox B Gene Negative Cdiff Gene (Neg) Stool Cryptosporidium PCR Not Detected (NotDetected) Stl E.coli Shiga Tox PCR Not Detected (NotDetected) Stl Enterotoxigenic E PCR Not Detected (NotDetected) Stool EPEC (PCR) Not Detected (NotDetected) Stool EAEC (PCR) Not Detected (NotDetected) Stl E. histolytica PCR Not Detected (NotDetected) Stool Giardia Lamblia PCR Not Detected (NotDetected) Stool Salmonella PCR Not Detected (NotDetected) Stool Sapovirus (PCR) Not Detected (NotDetected) Stl P. shigelloides PCR Not Detected (NotDetected) Stl Shigella/EIEC PCR Not Detected (NotDetected) St Y.enterocolitica PCR Not Detected (NotDetected) Stool Vibrio (PCR) Not Detected (NotDetected) Stl Vibrio cholerae PCR Not Detected (NotDetected) Stl Norovirus GI/GII PCR Not Detected (NotDetected) Adenovirus (PCR) (NotDetected) B. pertussis DNA (PCR) (NotDetected) B.parapertussis DNA PCR (NotDetected) C. pneumoniae DNA (PCR) (NotDetected) Coronavirus OC43 (PCR) (NotDetected) Coronavirus HKU1 (PCR) (NotDetected) Coronavirus 229E (PCR) (NotDetected) SARS-CoV-2 (PCR) (NotDetected) Coronavirus NL63 (PCR) (NotDetected) Human Metapneumovir PCR (NotDetected) Influenza Type A (PCR) (NotDetected) Influenza Type B (PCR) (NotDetected) M. pneumoniae (PCR) (NotDetected) Parainfluenza 1 (PCR) (NotDetected) Parainfluenza 2 (PCR) (NotDetected) Parainfluenza 3 (PCR) (NotDetected) Parainfluenza 4 (PCR) (NotDetected) RSV (PCR) (NotDetected) Entero/Rhino (PCR) (NotDetected) Blood Type Antibody Screen Administered Medications Discontinued Medications Famotidine (Pepcid 20mg Iv Push) 20 mg in 5 mls @ 2.5 mls/min IV NOW STA Stop: 05/30/24 08:49 Last Admin: 05/30/24 09:30 Dose: 2.5 mls/min Documented By: ANT Pantoprazole Sodium (Protonix) 40 mg in 10 mls @ 5 mls/min IV NOW ONE Stop: 05/30/24 08:49 Last Admin: 05/30/24 09:30 Dose: 5 mls/min Documented By: ANT Pantoprazole Sodium (Protonix) 40 mg in 10 mls @ 5 mls/min IV NOW ONE Stop: 05/30/24 12:32 Last Admin: 05/30/24 15:36 Dose: 5 mls/min Documented By: NEO Ioversol (Optiray 320 100ml) 94 ml IV ONCE ONE Stop: 05/30/24 09:38 Last Admin: 05/30/24 09:37 Dose: 94 ml Documented By: FAIZA Lidocaine HCl (Lidocaine 2% 2 Ml Vial/Amp(20mg/Ml)) Confirm Administered Dose 4 ml INFIL .STK-MED ONE Stop: 05/30/24 14:45 Last Admin: 05/30/24 15:37 Dose: Not Given Documented By: NEO Propofol (Propofol Iv Emulsion 10 Mg/Ml 20 Ml Vial) Confirm Administered Dose 400 mg IV .STK-MED ONE Stop: 05/30/24 14:45 Last Admin: 05/30/24 15:37 Dose: Not Given Documented By: NEO Imaging Data Radiologist's Impression: Abdomen/Pelvis CT 05/30/24 08:48 CT abd pelvis IV con only CLINICAL HISTORY: GI bleed, gastric bypass, mid abd pain, vomiting TECHNIQUE: Helical axial images of the abdomen and pelvis were obtained and displayed. Automated dose lowering techniques and/or adjustment according to patient size were utilized for this exam. This exam was performed with intravenous contrast. CT DOSE: 434.24 mGy.cm COMPARISON: Comparison is made to CT abdomen pelvis 11/04/2023 FINDINGS: Lower chest: No acute abnormality. Liver: Unremarkable. No focal lesions are seen. Gallbladder and biliary tree: Patient is status post cholecystectomy. Physiologic prominence of the biliary ducts is noted. Pancreas: Unremarkable, no focal lesions. Spleen: Unremarkable. Adrenals: Unremarkable. 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 Bladder: Limited evaluation due to underdistention. Reproductive organs: Unremarkable. Bowel: Postsurgical changes of gastric bypass surgery. Normal appendix. Lymph nodes Retroperitoneal: Unremarkable. Pelvic: Unremarkable. Mesenteric: Unremarkable. Peritoneum: Normal. Vessels: Unremarkable. Abdominal wall: Unremarkable. Bones: Degenerative changes in the visualized spine. IMPRESSION: No acute abnormalities to explain hematochezia. Post surgical changes of gastric bypass and additional findings as above. ACT 112: Negative or not required by law. Electronically signed by: Bolivar Melchor M.D. 05/30/2024 9:47 AM Discharge Plan Visit Data Chief Complaint: GI Bleed Stated Complaint: BLOODY STOOL, VOMITING ED Provider: Syed Sahu Discharge Problem: Acute GI bleeding, History of gastric bypass Patient Disposition: Admitted As Inpatient Discharge Instructions Interventions: ED Discharge Assessment Last Done: 05/30/24 13:13
[2024-05-30 09:23] LABS: Albumin Globulin Ratio 1.6 (0.9-2); Albumin Level 4.6 gm/dl (3.4-5.0); BUN Creatinine Ratio 50.8 (10-20); Bilirubin,Total 0.6 mg/dl (0.2-1.0); Calcium 9.5 mg/dl (8.6-10.3); Creatinine Clr Calc Pharmacy 81.7 ml/min; Globulin 2.8 gm/dl (2.5-4.0); Potassium 3.7 mmol/L (3.5-5.1); Total Protein 7.4 gm/dl (6.0-8.3)
[2024-05-30 09:29] LABS: Partial Thromboplastin Ratio 0.9; Partial Thromboplastin Time 23 Seconds (21-31); Prothrombin Time 10.5 Seconds (9.0-12.0)
[2024-05-30] MEDS: FAMOTIDINE 20MG IV PUSH 20 MG/5 ML SYR IV STA (09:30)
[2024-05-30] MEDS: PANTOprazole 40 MG/10 ML SYR IV ONE ×2 (09:30→15:36)
[2024-05-30] MEDS: OPTIRAY 320 100ml IV ONE (09:37)
--- NOTE | 2024-05-30 09:49 | CT Scan Report ---
CT abd pelvis IV con only CLINICAL HISTORY: GI bleed, gastric bypass, mid abd pain, vomiting TECHNIQUE: Helical axial images of the abdomen and pelvis were obtained and displayed. Automated dose lowering techniques and/or adjustment according to patient size were utilized for this exam. This e xam was performed with intravenous contrast. CT DOSE: 434.24 mGy.cm COMPARISON: Comparison is made to CT abdomen pelvis 11/04/2023 FINDINGS: Lower chest: No acute abnormality. Liver: Unremarkable. No focal lesions are seen. Gallbladder and biliary tree: Patient is status post cholecystectomy. Physiologic prominence of the b iliary ducts is noted. Pancreas: Unremarkable, no focal lesions. Spleen: Unremarkable. Adrenals: Unremarkable. 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 Bladder: Limited evaluation due to underdistention. Reproductive organs: Unremarkable. Bowel: Postsurgical changes of gastric bypass surgery. Normal appendix. Lymph nodes Retroperitoneal: Unremarkable. Pelvic: Unremarkable. Mesenteric: Unremarkable. Peritoneum: Normal. Vessels: Unremarkable. Abdominal wall: Unremarkable. Bones: Degenerative changes in the visualized spine. IMPRESSION: No acute abnormalities to explain hematochezia. Post surgical changes of gastric bypass and additiona l findings as above. ACT 112: Negative or not required by law. Electronically signed by: Bolivar Melchor M.D. 05/30/2024 9:47 AM
--- NOTE | 2024-05-30 11:41 | Electrocardiogram Report ---
Test Reason : Blood Pressure : */* mmHG Vent. Rate : 84 BPM Atrial Rate : 84 BPM P-R Int : 150 ms QRS Dur : 70 ms QT Int : 358 ms P-R-T Axes : 55 79 74 degrees QTcB Int : 423 ms Normal sinus rhythm When compared with ECG of 03-Nov-2023 14:43, No significant change was found Confirmed by Aravind Marin ([id number]) on 05/30/2024 11:41:30 AM Referred By: REFERRED SELF Confirmed By: Aravind Marin
--- NOTE | 2024-05-30 11:48 | History & Physical Report ---
Date of Service May 30, 2024 Assessment & Plan (1) Acute GI bleeding: Plan: Symptoms of hematochezia x 3 days and black tarry stool x 1 day; PMHx 2 gastric ulcers diagnosed approximately 4 to 5 months ago, s/p gastric bypass approximately 8 years ago; most recent admission for SBO. - Admit - Hemodynamically stable at time of admission - EKG NSR, rate around 84 bpm - CBC on admission with H&H 12.5/37.4 - CMP BUN 30, creatinine 0.59, BUN/creatinine ratio 50.8 - Fecal occult blood positive - CTAP without overt location of hematochezia identified; post surgical changes noted - Continue Protonix 40 mg IV twice daily - Provided with additional 40 mg in ED to total 80 mg bolus - Zofran IV prn n/v; QTc WNL - NPO until GI evaluates - H&H @ 1600 - CBC, BMP a.m. - GI consulted; ? 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 Dispo: Admit Diet: NPO for now VTE Prophylaxis: SCDs; hold chemical prophylaxis for now Code: Full Admission and Anticipated Discharge Date Admission Date: 05/30/2024 History of Present Illness Chief Complaint: Black tarry stool, BRBPR Primary Care Provider: Harriett Borja DO 63-year-old female presenting to ED for black, tarry stool x 1 day. ED course: CBC RBC 4.1L, H&H WNL, RDW 47.6; PT/INR WNL; CMP BUN 30, creatinine 0.59, BUN/creatinine ratio 50.8, glucose 125; stool occult blood positive; BioFire pending; CTAP no acute abnormalities to explain hematochezia, postsurgical changes of gastric bypass; EKG NSR, rate 84 bpm.; Provided with pantoprazole 40mg and famotidine 20mg in ED. Patient 63-year-old female PMHx s/p gastric bypass, prior GI ulcers, IBS, and anxiety most recent hospital course was 11/02-11/04 for SBO who is now presenting for 1 day of black tarry stools as well as 3 days of hematochezia. Patient states that approximately 3 days ago she noted that she was having darker than usual stool. Patient thought that this was secondary to her protein shake so s he decided 1 day LANDSCAPE ARCHITECT AND PLANNER that she would stop the supplement to see if this would help with the discoloration in stool. Notes that it did not result in any changes in the appearance of her stool, in the morning of arrival she had a third episode of dark tarry stool that, when flushed, had blood streaking in the bowl. Patient states that this made her concerned and she decided to come to ED to be evaluated. Notes that she is also been having nausea x 1 day, and no true episodes of vomiting but has had some dry heaving producing mucus with these episodes. Has had associated dizziness when standing too fast, but admits to having poor oral intake over the past few days. Of note, patient has been awakening in the a.m. completely soaking her pajamas and the bed sheets. States that this has been happening for approximately 10 days. Has also had unintentional weight loss, stating that her weight has been around 119 pounds but she has not been trying to lose this weight it just seems to continue to decrease. Has had poor appetite for 3 to 4 days, as well as some sinus congestion. Denying chest pain, shortness of breath, palpitations, abdominal pain, diarrhea/constipation, numbness/tingling, fever or chills. Did not take a.m. medications. Has never had this happen before. Please see Dr. Saenz's attestation for adjustments/additions to treatment plan. Allergies Allergy/AdvReac Type Severity Reaction Status Date / Time bupropion [From Wellbutrin] AdvReac suicidal Verified 11/03/23 17:05 Home Medications Medication Instructions Recorded Confirmed Type multivitamin 1 tab PO DAILY 05/30/19 05/30/24 History melatonin 10 mg capsule 10 mg PO HS PRN Sleep 06/13/19 05/30/24 History alendronate 70 mg tablet 70 mg PO WK 11/03/23 05/30/24 History escitalopram oxalate 20 mg tablet 20 mg PO DAILY 11/03/23 05/30/24 History propranolol 20 mg tablet 20 mg PO .EVERY 24 HOURS PRN 11/03/23 05/30/24 History Anxiety acetaminophen 325 mg tablet 650 mg (2 x 325 mg) PO Q4H PRN #0 11/05/23 05/30/24 Rx tabs ondansetron 4 mg disintegrating 4 mg translingual Q6H PRN nausea 11/05/23 05/30/24 Rx tablet and vomiting #14 tabs B12 1 tab PO DAILY 05/30/24 05/30/24 History Vitamin D3 1 tab PO DAILY 05/30/24 05/30/24 History dextroamphetamine-amphetamine 10 5 mg PO .AFTERNOON PRN Other 05/30/24 05/30/24 History mg tablet dextroamphetamine-amphetamine 10 10 mg PO QAM 05/30/24 05/30/24 History mg tablet iron 1 tab PO DAILY 05/30/24 05/30/24 History Past Med/Surg History Problem List (Updated 05/30/24 @ 12:38 by Ashly Ge PA-C) Rhinovirus History of gastric bypass (Acute) Acute GI bleeding (Acute) Vomiting (Acute) Anemia (Acute) Facial laceration Medical History (Updated 05/30/24 @ 12:38 by Ashly Ge PA-C) Small bowel obstruction Irritable bowel syndrome with diarrhea Anxiety Surgical History H/O abdominoplasty (06/14/19) and brachioplasty History of cholecystectomy History of gastric bypass 8yrs ago, previously dx with ALYSSA, resolved with wt loss. History of esophagogastroduodenoscopy (EGD) History of colonoscopy Family History Other No family history of adverse response to anesthesia Social History Smoking Status: Current every day smoker Tobacco Type: E-cigarettes / Vaping Second Hand Exposure: No; Do You Dip or Chew Tobacco: No; Hx Alcohol Use: Yes Hx Substance Use: Yes Last Used Substance: Days (ago) Last Used Substance Other:: 3 weeks ago Preferred Language: Liberian Communication Ability: Effective Senior Technical Architect Required: No Beliefs That Will Affect Care: None Current Living Situation: Spouse Feels Safe at Home: Yes Assistive Devices: None Review of Systems Review of Systems: All systems reviewed & are unremarkable except as noted in Subjective Physical Exam Physical Exam: General: No acute distress, thin Skin: Warm and dry, without rashes or lesions Head: Normocephalic, atraumatic Eyes: PERRL, conjunctivae clear, sclera non-icteric ENT: External ear and ear canal without swelling; nose atraumatic; good dentition, tongue normal appearance Neck: Supple, no LAD Cardio: RRR, no M/G/R, S1 and S2 normal Resp: No respiratory distress, Lungs CTA in all lobes bilaterally, no wheezes, rales, or rhonchi Abdomen: Soft, symmetric, slight tenderness to palpation LUQ; No distention; No masses or hepatosplenomegaly; Bowel sounds normoactive MSK: No deformities, full ROM throughout; pulses palpable and equal; no edema. Neuro: Awake, alert; Muscle strength 5/5 bilaterally in UE/LE; Sensation intact bilaterally; CN grossly intact Psych: Appropriate mood and affect; good judgement and insight. Results & Data Results & Data Vital Signs (Past 12 Hours) Vital Signs Temp Pulse Resp BP Pulse Ox O2 Del Method 05/30/24 09:00 79 14 144/74 H 94 05/30/24 08:57 82 05/30/24 08:47 83 14 138/73 100 Room Air 05/30/24 08:47 88 12 100 Room Air 05/30/24 08:35 82 18 100 Room Air 05/30/24 08:21 36.3 C L 106 H 20 136/87 100 Room Air Laboratory Results 05/30/24 05/30/24 05/30/24 11:04 10:44 08:47 WBC RBC Hgb Hct MCV MCH MCHC RDW Std Deviation RDW Coeff of Ritika Plt Count MPV Immature Gran % (Auto) Neut % (Auto) Lymph % (Auto) [place] % (Auto) Eos % (Auto) Baso % (Auto) Neut # (Auto) Lymph # (Auto) [place] # (Auto) Eos # (Auto) Baso # (Auto) Immature Gran # (Auto) PT INR APTT PTT Ratio Sodium Potassium Chloride Carbon Dioxide Anion Gap BUN Creatinine Est Cr Clr Drug Dosing eGFR BUN/Creatinine Ratio Glucose Calcium Total Bilirubin AST ALT Alkaline Phosphatase Total Protein Albumin Globulin Albumin/Globulin Ratio POC Stool Occult Blood Positive A Adenovirus (PCR) Not Detected B. pertussis DNA (PCR) Not Detected B.parapertussis DNA PCR Not Detected C. pneumoniae DNA (PCR) Not Detected Coronavirus OC43 (PCR) Not Detected Coronavirus HKU1 (PCR) Not Detected Coronavirus 229E (PCR) Not Detected SARS-CoV-2 (PCR) Not Detected Coronavirus NL63 (PCR) Not Detected Human Metapneumovir PCR Not Detected Influenza Type A (PCR) Not Detected Influenza Type B (PCR) Not Detected M. pneumoniae (PCR) Not Detected Parainfluenza 1 (PCR) Not Detected Parainfluenza 2 (PCR) Not Detected Parainfluenza 3 (PCR) Not Detected Parainfluenza 4 (PCR) Not Detected RSV (PCR) Not Detected Entero/Rhino (PCR) DETECTED A Blood Type O Positive Antibody Screen NEGATIVE 05/30/24 08:38 WBC 8.56 RBC 4.10 L Hgb 12.5 Hct 37.4 MCV 91.2 MCH 30.5 MCHC 33.4 RDW Std Deviation 47.6 H RDW Coeff of Ritika 14.1 Plt Count 354 MPV 10.0 Immature Gran % (Auto) 0.4 Neut % (Auto) 68.6 Lymph % (Auto) 25.4 [place] % (Auto) 3.7 Eos % (Auto) 0.7 Baso % (Auto) 1.2 Neut # (Auto) 5.88 Lymph # (Auto) 2.17 [place] # (Auto) 0.32 Eos # (Auto) 0.06 Baso # (Auto) 0.10 Immature Gran # (Auto) 0.03 PT 10.5 INR 1.0 APTT 23 PTT Ratio 0.9 Sodium 141 Potassium 3.7 Chloride 107 Carbon Dioxide 26 Anion Gap 8 BUN 30 H Creatinine 0.59 L Est Cr Clr Drug Dosing 81.7 eGFR 101.20 BUN/Creatinine Ratio 50.8 H Glucose 125 H Calcium 9.5 Total Bilirubin 0.6 AST 21 ALT 17 Alkaline Phosphatase 66 Total Protein 7.4 Albumin 4.6 Globulin 2.8 Albumin/Globulin Ratio 1.6 POC Stool Occult Blood Adenovirus (PCR) B. pertussis DNA (PCR) B.parapertussis DNA PCR C. pneumoniae DNA (PCR) Coronavirus OC43 (PCR) Coronavirus HKU1 (PCR) Coronavirus 229E (PCR) SARS-CoV-2 (PCR) Coronavirus NL63 (PCR) Human Metapneumovir PCR Influenza Type A (PCR) Influenza Type B (PCR) M. pneumoniae (PCR) Parainfluenza 1 (PCR) Parainfluenza 2 (PCR) Parainfluenza 3 (PCR) Parainfluenza 4 (PCR) RSV (PCR) Entero/Rhino (PCR) Blood Type Antibody Screen Diagnostic Findings Abdomen/Pelvis CT 05/30/24 08:48 CT abd pelvis IV con only CLINICAL HISTORY: GI bleed, gastric bypass, mid abd pain, vomiting TECHNIQUE: Helical axial images of the abdomen and pelvis were obtained and displayed. Automated dose lowering techniques and/or adjustment according to patient size were utilized for this exam. This exam was performed with intravenous contrast. CT DOSE: 434.24 mGy.cm COMPARISON: Comparison is made to CT abdomen pelvis 11/04/2023 FINDINGS: Lower chest: No acute abnormality. Liver: Unremarkable. No focal lesions are seen. Gallbladder and biliary tree: Patient is status post cholecystectomy. Physiologic prominence of the biliary ducts is noted. Pancreas: Unremarkable, no focal lesions. Spleen: Unremarkable. Adrenals: Unremarkable. 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 Bladder: Limited evaluation due to underdistention. Reproductive organs: Unremarkable. Bowel: Postsurgical changes of gastric bypass surgery. Normal appendix. Lymph nodes Retroperitoneal: Unremarkable. Pelvic: Unremarkable. Mesenteric: Unremarkable. Peritoneum: Normal. Vessels: Unremarkable. Abdominal wall: Unremarkable. Bones: Degenerative changes in the visualized spine. IMPRESSION: No acute abnormalities to explain hematochezia. Post surgical changes of gastric bypass and additional findings as above. ACT 112: Negative or not required by law. Electronically signed by: Bolivar Melchor M.D. 05/30/2024 9:47 AM Medications Administered Pantoprazole sodium 40mg in 10mLs @ 5mL/min IV Famotidine 20 mg in 5mL @ 2.5mL/min IV ECG Additional Comments: Test Reason : Blood Pressure : */* mmHG Vent. Rate : 84 BPM Atrial Rate : 84 BPM P-R Int : 150 ms QRS Dur : 70 ms QT Int : 358 ms P-R-T Axes : 55 79 74 degrees QTcB Int : 423 ms Normal sinus rhythm When compared with ECG of 03-Nov-2023 14:43, No significant change was found Confirmed by Araivnd Marin ([id number]) on 05/30/2024 11:41:30 AM Referred By: REFERRED SELF Confirmed By: Aravind Marin Code Status & VTE Plan Code Status Full Supervising Physician Co-Signing Physician Notes Patient seen and examined, chart reviewed, case discussed with Ashly Ge PA-C and I agree with the assessment and plan as above except as otherwise noted Labs and images reviewed Otilia is a 63-year-old female with a past medical history of gastric bypass at [place] 10 years ago, CF gene carrier, anxiety, recent bowel obstruction 10/2023 who presents with a suspected upper GI bleed. Hemoccult positive stool. Hemoglobin is 12.5 and uptrending from prior however BUN is acutely elevated with a normal creatinine and she presents with hematochezia/melena. CTA/P with IV contrast shows no acute abnormalities, postsurgical changes consistent with vascular bypass is noted. She is recommended for admission for suspected upper GI bleed. Agree with PPI, will increase initial bolus to 80 mg and then continue push dose twice daily 40 mg. GI consulted, further recommendations pending, may scope today vs tomorrow. She is not hemodynamically unstable. Type and cross ordered. She is not on NSAIDs or aspirin. Agree with above PG Care Time/CCT Total # of Minutes Spent Total Time Spent with Patient: Total time spent is greater than 50% in coordination of care (as documented) at patient's floor/unit and/or counseling patient: Coding Level of Care Code 61453 INT INP/OBS CARE 3/75MIN Diagnoses Acute GI bleeding K92.2 Rhinovirus B34.8
--- NOTE | 2024-05-30 11:55 | Gastrointestinal Consultation ---
Date of Consultation May 30, 2024 Assessment & Plan (1) History of gastric bypass: 63 year old female w/ history of RYGB, history of anastomotic ulceration in summer 2023, EGD in November 2023 showed no ulceration at that time presented through the ED w/ report of dark stools NPO EGD today IV PPI bolus followed by BID dosing No NSAIDs, No Tobacco, No ETOH Agree w/ admission Trend H&H Monitor and document GI output Transfuse PRN per primary service We appreciate assistance in the management of any serological abnormality and corrections to include: hemoglobin >7, INR <2, platelets >50,000, potassium levels >3.5 but <5.3, and sodium levels within 5 points of the reference range prior to endoscopic evaluation. I spent a total of 60 minutes on the date of service in review of patient's record, and previously obtained information in person and appropriate medical visit, discussion and education of plan, with patient and/or caregiver, placing orders for tests/referral/procedures as medically necessary and documentation of pertinent clinical information in patient's medical records for their visit today. Thank you for allowing us to participate in the care of this patient. Please call with any acute changes, questions or concerns. Please see addendum below with additional recommendation from my supervising physician. Supervising Physician Co-Signing Physician Notes Patient seen and evaluated with RESIDENTIAL SALES CONSULTANT old records reviewed has had 2 EGDs in the last in the last 6 months on last EGD there were no ulcerations were prior to that there were ulcerations now presents again with melena will plan EGD today further recommendations after EGD History of Present Illness Reason for Consultation: dark stool, heme positive Requesting Physician: Syed Sahu Attending Physician: Syed Sahu History of Present Illness 63 year old female w/ history of RYGB who is presented through the ED w/ report of dark stools. History of anastomotic ulceration in the past. EGD in November 2023 showed no ulceration at that time. Suggest after recall EGD she stopped all GI medications. Notes about a week or so ago developed upper abd pain. No burning, more of a sharp pain. Some GERD type symptoms. Black stools over the last three or so days. Suggests last black BM was this morning. No hematemesis or coffee ground emesis. No fever, chills, CP, SOB. Of note, she was admitted recently to [facility] w/ partial small bowel obstruction at the anastomosis. HGB 12.5 BUN 30 No ETOH No tobacco She does use a e-vape for medicinal marijuana which she has since stopped as she was told this could contribute to ulcerations. CTAP 2023: No acute abnormalities to explain hematochezia. Post surgical changes of gastric bypass and additional findings as above. EGD 02/2024:Z-line regular, 42 cm from the incisors. - Gastric bypass with a pouch 4 cm in length and intact staple line. Gastrojejunal anastomosis characterized by healthy appearing mucosa and no stomal ulceration. - Normal examined jejunum. No specimens collected. EGD 11/2023: Normal mucosa was found in the entire esophagus. - Z-line irregular, 40 cm from the incisors. - Gastric bypass with a normal-sized pouch and intact staple line. Gastrojejunal anastomosis characterized by healthy appearing mucosa and ulceration. - Normal mucosa was found in the jejunum. - No specimens collected. Allergies Allergy/AdvReac Type Severity Reaction Status Date / Time bupropion [From Wellbutrin] AdvReac suicidal Verified 11/03/23 17:05 Home Medications Medication Instructions Recorded Confirmed Type multivitamin 1 tab PO DAILY 05/30/19 05/30/24 History melatonin 10 mg capsule 10 mg PO HS PRN Sleep 06/13/19 05/30/24 History alendronate 70 mg tablet 70 mg PO WK 11/03/23 05/30/24 History escitalopram oxalate 20 mg tablet 20 mg PO DAILY 11/03/23 05/30/24 History propranolol 20 mg tablet 20 mg PO .EVERY 24 HOURS PRN 11/03/23 05/30/24 History Anxiety acetaminophen 325 mg tablet 650 mg (2 x 325 mg) PO Q4H PRN #0 11/05/23 05/30/24 Rx tabs ondansetron 4 mg disintegrating 4 mg translingual Q6H PRN nausea 11/05/23 05/30/24 Rx tablet and vomiting #14 tabs B12 1 tab PO DAILY 05/30/24 05/30/24 History Vitamin D3 1 tab PO DAILY 05/30/24 05/30/24 History dextroamphetamine-amphetamine 10 5 mg PO .AFTERNOON PRN Other 05/30/24 05/30/24 History mg tablet dextroamphetamine-amphetamine 10 10 mg PO QAM 05/30/24 05/30/24 History mg tablet iron 1 tab PO DAILY 05/30/24 05/30/24 History Patient History Medical History Small bowel obstruction Irritable bowel syndrome with diarrhea Anxiety Surgical History H/O abdominoplasty (06/14/19) and brachioplasty History of cholecystectomy History of gastric bypass 8yrs ago, previously dx with ALYSSA, resolved with wt loss. History of esophagogastroduodenoscopy (EGD) History of colonoscopy Family History Other No family history of adverse response to anesthesia Social History Smoking Status: Former smoker Tobacco Type: E-cigarettes / Vaping Second Hand Exposure: No; Do You Dip or Chew Tobacco: No; Tobacco Cessation Education Requested by Patient: No Hx Alcohol Use: No Hx Substance Use: No Preferred Language: German Communication Ability: Effective Busboy Required: No Beliefs That Will Affect Care: Episcopal Current Living Situation: Spouse Other Information That Helps Us Care for You: No Feels Safe at Home: Yes Safety Concerns: Feels Safe At This Time Assistive Devices: None Review of Systems Review of Systems: All other findings negative except as noted in HPI. Physical Exam Constitutional: WD/WN, vitals as above Respiratory: normal respiratory effort, lungs clear to auscultation Cardiovascular: Rate/Rhythm: regular rate and regular rhythm Gastrointestinal (Abdomen): normal bowel sounds, soft, nontender, no hepatosplenomegaly Skin: no rashes, warm and dry Results & Data Vital Signs (Past 12 Hours) Vital Signs Temp Pulse Resp BP Pulse Ox O2 Del Method 05/30/24 09:00 79 14 144/74 H 94 05/30/24 08:57 82 05/30/24 08:47 83 14 138/73 100 Room Air 05/30/24 08:47 88 12 100 Room Air 05/30/24 08:35 82 18 100 Room Air 05/30/24 08:21 36.3 C L 106 H 20 136/87 100 Room Air Laboratory Results 12/23/24 12/23/24 12/23/24 Range/Units 11:04 10:44 08:47 WBC (4.8-10.8) K/ul RBC (4.20-5.40) M/uL Hgb (12.0-16.0) g/dl Hct (37.0-47.0) % MCV (80.0-100.0) fL MCH (25.0-34.0) pg MCHC (32.0-36.0) g/dL RDW Std Deviation (36.4-46.3) fL RDW Coeff of Ritika (11.5-14.5) % Plt Count (130-400) K/uL MPV (9.4-12.4) fL Immature Gran % (Auto) % Neut % (Auto) % Lymph % (Auto) % [place] % (Auto) % Eos % (Auto) % Baso % (Auto) % Neut # (Auto) (1.40-6.50) K/uL Lymph # (Auto) (1.20-3.40) K/uL [place] # (Auto) (0.11-0.59) K/uL Eos # (Auto) (0.00-0.50) K/uL Baso # (Auto) (0.00-0.20) K/uL Immature Gran # (Auto) (0.01-0.20) K/uL PT (9.0-12.0) Seconds INR (0.9-1.1) APTT (21-31) Seconds PTT Ratio Sodium (136-145) mmol/L Potassium (3.5-5.1) mmol/L Chloride (98-107) mmol/L Carbon Dioxide (21-32) mmol/L Anion Gap (3-11) BUN (6-23) mg/dl Creatinine (0.6-1.2) mg/dl Est Cr Clr Drug Dosing ml/min eGFR BUN/Creatinine Ratio (10-20) Glucose (70-99(Fasting)) mg/dl Calcium (8.6-10.3) mg/dl Total Bilirubin (0.2-1.0) mg/dl AST (13-39) U/L ALT (7-52) U/L Alkaline Phosphatase (34-104) U/L Total Protein (6.0-8.3) gm/dl Albumin (3.4-5.0) gm/dl Globulin (2.5-4.0) gm/dl Albumin/Globulin Ratio (0.9-2) POC Stool Occult Blood Positive A (Negative) Adenovirus (PCR) Not Detected (NotDetected) B. pertussis DNA (PCR) Not Detected (NotDetected) B.parapertussis DNA PCR Not Detected (NotDetected) C. pneumoniae DNA (PCR) Not Detected (NotDetected) Coronavirus OC43 (PCR) Not Detected (NotDetected) Coronavirus HKU1 (PCR) Not Detected (NotDetected) Coronavirus 229E (PCR) Not Detected (NotDetected) SARS-CoV-2 (PCR) Not Detected (NotDetected) Coronavirus NL63 (PCR) Not Detected (NotDetected) Human Metapneumovir PCR Not Detected (NotDetected) Influenza Type A (PCR) Not Detected (NotDetected) Influenza Type B (PCR) Not Detected (NotDetected) M. pneumoniae (PCR) Not Detected (NotDetected) Parainfluenza 1 (PCR) Not Detected (NotDetected) Parainfluenza 2 (PCR) Not Detected (NotDetected) Parainfluenza 3 (PCR) Not Detected (NotDetected) Parainfluenza 4 (PCR) Not Detected (NotDetected) RSV (PCR) Not Detected (NotDetected) Entero/Rhino (PCR) DETECTED A (NotDetected) Blood Type O Positive Antibody Screen NEGATIVE 05/30/24 Range/Units 08:38 WBC 8.56 (4.8-10.8) K/ul RBC 4.10 L (4.20-5.40) M/uL Hgb 12.5 (12.0-16.0) g/dl Hct 37.4 (37.0-47.0) % MCV 91.2 (80.0-100.0) fL MCH 30.5 (25.0-34.0) pg MCHC 33.4 (32.0-36.0) g/dL RDW Std Deviation 47.6 H (36.4-46.3) fL RDW Coeff of Ritika 14.1 (11.5-14.5) % Plt Count 354 (130-400) K/uL MPV 10.0 (9.4-12.4) fL Immature Gran % (Auto) 0.4 % Neut % (Auto) 68.6 % Lymph % (Auto) 25.4 % [place] % (Auto) 3.7 % Eos % (Auto) 0.7 % Baso % (Auto) 1.2 % Neut # (Auto) 5.88 (1.40-6.50) K/uL Lymph # (Auto) 2.17 (1.20-3.40) K/uL [place] # (Auto) 0.32 (0.11-0.59) K/uL Eos # (Auto) 0.06 (0.00-0.50) K/uL Baso # (Auto) 0.10 (0.00-0.20) K/uL Immature Gran # (Auto) 0.03 (0.01-0.20) K/uL PT 10.5 (9.0-12.0) Seconds INR 1.0 (0.9-1.1) APTT 23 (21-31) Seconds PTT Ratio 0.9 Sodium 141 (136-145) mmol/L Potassium 3.7 (3.5-5.1) mmol/L Chloride 107 (98-107) mmol/L Carbon Dioxide 26 (21-32) mmol/L Anion Gap 8 (3-11) BUN 30 H (6-23) mg/dl Creatinine 0.59 L (0.6-1.2) mg/dl Est Cr Clr Drug Dosing 81.7 ml/min eGFR 101.20 BUN/Creatinine Ratio 50.8 H (10-20) Glucose 125 H (70-99(Fasting)) mg/dl Calcium 9.5 (8.6-10.3) mg/dl Total Bilirubin 0.6 (0.2-1.0) mg/dl AST 21 (13-39) U/L ALT 17 (7-52) U/L Alkaline Phosphatase 66 (34-104) U/L Total Protein 7.4 (6.0-8.3) gm/dl Albumin 4.6 (3.4-5.0) gm/dl Globulin 2.8 (2.5-4.0) gm/dl Albumin/Globulin Ratio 1.6 (0.9-2) POC Stool Occult Blood (Negative) Adenovirus (PCR) (NotDetected) B. pertussis DNA (PCR) (NotDetected) B.parapertussis DNA PCR (NotDetected) C. pneumoniae DNA (PCR) (NotDetected) Coronavirus OC43 (PCR) (NotDetected) Coronavirus HKU1 (PCR) (NotDetected) Coronavirus 229E (PCR) (NotDetected) SARS-CoV-2 (PCR) (NotDetected) Coronavirus NL63 (PCR) (NotDetected) Human Metapneumovir PCR (NotDetected) Influenza Type A (PCR) (NotDetected) Influenza Type B (PCR) (NotDetected) M. pneumoniae (PCR) (NotDetected) Parainfluenza 1 (PCR) (NotDetected) Parainfluenza 2 (PCR) (NotDetected) Parainfluenza 3 (PCR) (NotDetected) Parainfluenza 4 (PCR) (NotDetected) RSV (PCR) (NotDetected) Entero/Rhino (PCR) (NotDetected) Blood Type Antibody Screen PG Care Time/CCT Total # of Minutes Spent Total Time Spent with Patient: Total time spent is greater than 50% in coordination of care (as documented) at patient's floor/unit and/or counseling patient: Coding Level of Care Code 60286 INT INP/OBS CARE 2/55MIN Diagnoses History of gastric bypass Z98.84
[2024-05-30 11:56] LABS: Adenovirus PCR Not Detected (NotDetected); Bordetella parapertussis PCR Not Detected (NotDetected); Bordetella pertussis PCR Not Detected (NotDetected); Chlamydia pneumoniae PCR Not Detected (NotDetected); Coronavirus 229E PCR Not Detected (NotDetected); Coronavirus CoV-2 (COVID19)PCR Not Detected (NotDetected); Coronavirus HKU1 PCR Not Detected (NotDetected); Coronavirus NL63 PCR Not Detected (NotDetected); Coronavirus OC43PCR Not Detected (NotDetected); Human Metapneumovirus PCR Not Detected (NotDetected); Influenza A PCR Not Detected (NotDetected); Influenza B PCR Not Detected (NotDetected); Mycoplasma pneumoniae PCR Not Detected (NotDetected); Parainfluenza Virus 1 PCR Not Detected (NotDetected); Parainfluenza Virus 2 PCR Not Detected (NotDetected); Parainfluenza Virus 3 PCR Not Detected (NotDetected); Parainfluenza Virus 4 PCR Not Detected (NotDetected); Respiratory Syncytial VirusPCR Not Detected (NotDetected); Rhinovirus/Enterovirus PCR DETECTED (NotDetected)
[2024-05-30] MEDS ORDERED: NON-FORMULARY MEDICATION (Dextroamphetamine-Amphetamine 10 mg tablet) PO PRN (13:20)
[2024-05-30] MEDS ORDERED: PROPRANOLOL HCL 20 MG TAB PO PRN (13:20)
[2024-05-30] MEDS ORDERED: MELATONIN 3 MG TAB PO PRN (13:28)
--- NOTE | 2024-05-30 14:32 | Anesthesiology Consultation ---
Date of Service May 30, 2024 Assessment & Plan (1) Encounter for pre-operative examination: Chart Review Chart Review: Acceptable Risk for Surgery and Patient NOT seen in Pre Admission Testing Consults Requested none History Surgery Operation Date: 05/30/24 17:40 Proposed Procedures p Esophagogastroduodenoscopy Theron Crump MD Height/Weight Height: 5 ft 6 in Weight: 52.1 kg Allergies Allergy/AdvReac Type Severity Reaction Status Date / Time bupropion [From Wellbutrin] AdvReac suicidal Verified 11/03/23 17:05 Medications Home Medications Medication Instructions Recorded Confirmed Last Taken multivitamin 1 tab PO DAILY 05/30/19 05/30/24 06/02/19 18:00 melatonin 10 mg capsule 10 mg PO HS PRN Sleep 06/13/19 05/30/24 Unknown alendronate 70 mg tablet 70 mg PO WK 11/03/23 05/30/24 Unknown escitalopram oxalate 20 mg tablet 20 mg PO DAILY 11/03/23 05/30/24 Unknown propranolol 20 mg tablet 20 mg PO .EVERY 24 HOURS PRN 11/03/23 05/30/24 Unknown Anxiety acetaminophen 325 mg tablet 650 mg (2 x 325 mg) PO Q4H PRN #0 11/05/23 05/30/24 Unknown tabs ondansetron 4 mg disintegrating 4 mg translingual Q6H PRN nausea 11/05/23 05/30/24 Unknown tablet and vomiting #14 tabs B12 1 tab PO DAILY 05/30/24 05/30/24 Unknown Vitamin D3 1 tab PO DAILY 05/30/24 05/30/24 Unknown dextroamphetamine-amphetamine 10 5 mg PO .AFTERNOON PRN Other 05/30/24 05/30/24 Unknown mg tablet dextroamphetamine-amphetamine 10 10 mg PO QAM 05/30/24 05/30/24 Unknown mg tablet iron 1 tab PO DAILY 05/30/24 05/30/24 Unknown Past Medical History Medical History Small bowel obstruction Irritable bowel syndrome with diarrhea Anxiety Past Family History Family History Other No family history of adverse response to anesthesia Past Surgical History Surgical History H/O abdominoplasty (06/14/19) and brachioplasty History of cholecystectomy History of gastric bypass 8yrs ago, previously dx with ALYSSA, resolved with wt loss. History of esophagogastroduodenoscopy (EGD) History of colonoscopy Social History Smoking Status: Former smoker Do You Dip or Chew Tobacco: No Hx Alcohol Use: No alcohol intake frequency: a few times a month Hx Substance Use: No substance use type: marijuana Last Used Substance: Days (ago) Last Used Substance Other:: 3 weeks ago Physical Exam Vital Signs Last Vital Signs Temp 98.2 F 05/30/24 13:21 Pulse 80 05/30/24 14:00 Resp 98 H 05/30/24 13:21 BP 116/72 05/30/24 13:21 Pulse Ox 94 05/30/24 13:21 O2 Del Method Room Air 05/30/24 13:21 Testing Laboratory Results 05/30/24 08:38 05/30/24 08:38 PT 10.5 Seconds (9.0-12.0) 05/30/24 08:38 INR 1.0 (0.9-1.1) 05/30/24 08:38 APTT 23 Seconds (21-31) 05/30/24 08:38 Blood Type O Positive 05/30/24 08:47 Antibody Screen NEGATIVE 05/30/24 08:47
[2024-05-30 14:41] LABS: Adenovirus F 40/41 PCR Not Detected (NotDetected); Astrovirus PCR Not Detected (NotDetected); Campylobacter PCR Not Detected (NotDetected); Cryptosporidium PCR Not Detected (NotDetected); Cyclospora cayetanensis PCR Not Detected (NotDetected); Entamoeba histolytica PCR Not Detected (NotDetected); Enteroaggregative E.coli(EAEC) Not Detected (NotDetected); Enteropathogenic E.coli (EPEC) Not Detected (NotDetected); Enterotoxigenic E.coli (ETEC) Not Detected (NotDetected); Giardia lamblia PCR Not Detected (NotDetected); Norovirus GI/GII PCR Not Detected (NotDetected); Plesiomonas shigelloides PCR Not Detected (NotDetected); Rotavirus A PCR Not Detected (NotDetected); Salmonella PCR Not Detected (NotDetected); Sapovirus PCR Not Detected (NotDetected); Shiga-like Toxin E.coli (STEC) Not Detected (NotDetected); Shigella/Enteroinvasive E.coli Not Detected (NotDetected); Vibrio cholerae PCR Not Detected (NotDetected); Vibrio species PCR Not Detected (NotDetected); Yersinia enterocolitica PCR Not Detected (NotDetected)
--- NOTE | 2024-05-30 14:57 | GI REPORT ---
[facility] Patient: LALA ALBERTO : 1960 Sex at : Female Age: 63 Years Procedure: Upper GI endoscopy Date: 05/30/2024 Attending Physician: Arturo Crump MD Referring MD: Jaylen Saenz MD Indications: - Melena Medications: - Monitored Anesthesia Care Complications: - No immediate complications. Estimated Blood Loss: - Estimated blood loss: None. Procedure: - The egd scope was introduced through the mouth and advanced to the anastomotic limb. - The upper GI endoscopy was accomplished with ease. - The patient tolerated the procedure well. Findings: - Patient is status post gastric bypass the anastomosis looked good and the limb was entered deeply and there was no evidence of any bleeding or any ulceration Impression: - Patient is status post gastric bypass the anastomosis looked good and the limb was entered deeply and there was no evidence of any bleeding or any ulceration - No specimens collected. Recommendation: - PPI daily follow-up with gastroenterology team at [facility] who have been seeing her regularly and she has had 2 endoscopies with them this year Procedure Code(s): - 43967, Esophagogastroduodenoscopy, flexible, transoral; diagnostic, including collection of specimen(s) by brushing or washing, when performed (separate procedure) CPT(R) - 2023 copyright [employer]. All Rights Reserved. The CPT codes, CCI edits and ICD codes generated are intended as suggestions and were generated based on input data. These codes are preliminary and upon dewaterer operator review may be revised to meet current compliance and payer requirements. The provider is responsible for the final determination of appropriate codes, and modifiers. Arturo Crump MD This document has been electronically signed. Note Initiated:05/30/2024 Note Completed:05/30/2024 2:56 PM [email or web address]\[email or web address]\[id number]
--- NOTE | 2024-05-30 14:59 | Anesthesiology Progress Note ---
Date of Service May 30, 2024 Anesthesia Post Procedure Vital Signs Vital Signs: Temp Pulse Pulse Resp BP BP Pulse Ox 05/30/24 14:53 92 H 14 92/63 L 99 05/30/24 14:38 98.4 F 91 H 17 106/92 99 05/30/24 14:00 80 05/30/24 13:21 98.2 F 98 H 116/72 94 05/30/24 09:00 79 14 144/74 H 94 05/30/24 08:57 82 05/30/24 08:47 83 14 138/73 100 05/30/24 08:47 88 12 100 05/30/24 08:35 82 18 100 05/30/24 08:21 97.3 F L 106 H 20 136/87 100 O2 Del Method O2 Flow Rate 05/30/24 14:53 Oxymask 10 05/30/24 14:38 Room Air 05/30/24 14:00 05/30/24 13:21 Room Air 05/30/24 09:00 05/30/24 08:57 05/30/24 08:47 Room Air 05/30/24 08:47 Room Air 05/30/24 08:35 Room Air 05/30/24 08:21 Room Air Transfer of Care Handoff Completed per policy Notes Mental Status: alert / awake / arousable and participated in evaluation Patient Amnestic to Procedure: Yes Nausea / Vomiting: adequately controlled Pain: adequately controlled Airway Patency, RR, SpO2: stable & adequate BP & HR: stable & adequate Hydration State: stable & adequate Anesthetic Complications: no major complications apparent and Pt Satisfied with anesthetic care
[2024-05-30] MEDS: LIDOCAINE 2% 2 ML VIAL/AMP(20MG/ML) INFIL ONE (15:37)
[2024-05-30] MEDS: PROPOFOL IV EMULSION 10 MG/ML 20 ML VIAL IV ONE (15:37)
[2024-05-30 15:51] LABS: Hematocrit (blood only) 31.6 % (37.0-47.0); Hemoglobin 10.8 g/dl (12.0-16.0)
[2024-05-30] MEDS: MELATONIN 3 MG TAB PO PRN (20:43)
[2024-05-31 06:15] LABS: Hemoglobin 9.6 g/dl (12.0-16.0); Mean Corpuscular Hemoglobin 30.3 pg (25.0-34.0); Mean Corpuscular Hgb Conc 33.1 g/dL (32.0-36.0); Mean Corpuscular Volume 91.5 fL (80.0-100.0); Mean Platelet Volume 9.6 fL (9.4-12.4); Platelet Count 232 K/uL (130-400); RDW Coefficient of Variation 13.9 % (11.5-14.5); RDW Standard Deviation 46.7 fL (36.4-46.3); Red Blood Count 3.17 M/uL (4.20-5.40); White Blood Count 5.23 K/ul (4.8-10.8)
[2024-05-31 06:27] LABS: BUN Creatinine Ratio 32.8 (10-20); Calcium 8.9 mg/dl (8.6-10.3); Creatinine Clr Calc Pharmacy 81.7 ml/min; Potassium 4.3 mmol/L (3.5-5.1)
[2024-05-31] MEDS: ESCITALOPRAM OXALATE 20 MG TAB PO SCH (07:54)
[2024-05-31] MEDS: DEXTROAMPHETAMINE/AMPHETAMINE IR 10 MG TAB PO SCH (08:10)
--- NOTE | 2024-05-31 09:48 | Gastroenterology Progress Note ---
Date of Service May 31, 2024 Assessment & Plan (1) History of gastric bypass: Plan: 63 year old female w/ history of RYGB, history of anastomotic ulceration in summer 2023, EGD in November 2023 showed no ulceration at that time presented through the ED w/ report of dark stools. EGD yesterday w/o source of UGI bleeding. We discussed colonoscopy, she would prefer to have this done as an outpatient with her regular GI group at [facility] and she has had no further signs of GI bleeding and reported a brown stool last night. May advance diet as tolerated. PO PPI. No NSAIDs. No Tobacco. No ETOH. Please assist with scheduling an OP colonoscopy with her [facility] care providers. Recall GI as needed. I spent a total of 40 minutes on the date of service in review of patient's record, and previously obtained information in person and appropriate medical visit, discussion and education of plan, with patient and/or caregiver, placing orders for tests/referral/procedures as medically necessary and documentation of pertinent clinical information in patient's medical records for their visit today. Admission and Anticipated Discharge Date Admission Date: May 30, 2024 Supervising Physician Co-Signing Physician Notes I examined the patient and reviewed the medical record, laboratory data and imaging studies. I agree with the assessment and plan of care as suggested by the advanced practice provider. Patient appears comfortable at the present time she states since yesterday she has had a very small bowel movement which was brown in color I did a rectal myself and there was no stool in the vault she had an EGD yesterday with did not show any bleeding she would like to follow-up with her outpatient fire watchman and consider colonoscopy as outpatient since there is no evidence of any active bleeding I do not feel an urgent colonoscopy is needed patient instructed if she has any bleeding to come to the hospital immediately in case she is discharged thank you for allowing us to take part in the care of your patient please recall if there are any questions Subjective EGD yesterday with out bleeding or ulceration HGB this AM 9.6. Last colon was around 2004 at [facility]. She notes she had a colonoscopy more recently at [facility] but I was not able to obtian record of this. No abd pain. Had a brown stool yesterday. CTAP 2023: No acute abnormalities to explain hematochezia. Post surgical changes of gastric bypass and additional findings as above. EGD 05/2024: - Patient is status post gastric bypass the anastomosis looked good and the limb was entered deeply and there was no evidence of any bleeding or any ulceration No specimens collected. EGD 02/2024:Z-line regular, 42 cm from the incisors. - Gastric bypass with a pouch 4 cm in length and intact staple line. Gastrojejunal anastomosis characterized by healthy appearing mucosa and no stomal ulceration. - Normal examined jejunum. No specimens collected. EGD 11/2023: Normal mucosa was found in the entire esophagus. - Z-line irregular, 40 cm from the incisors. - Gastric bypass with a normal-sized pouch and intact staple line. Gastrojejunal anastomosis characterized by healthy appearing mucosa and ulceration. - Normal mucosa was found in the jejunum. - No specimens collected. Review of Systems Review of Systems: All other findings negative except as noted in HPI. Physical Exam Constitutional: WD/WN, vitals as above Respiratory: normal respiratory effort, lungs clear to auscultation Cardiovascular: Rate/Rhythm: regular rate and regular rhythm Gastrointestinal (Abdomen): normal bowel sounds, soft, nontender, no hepatosplenomegaly Skin: no rashes, warm and dry Results & Data Results & Data Vital Signs (Past 12 Hours) Vital Signs Temp Pulse Pulse Resp BP Pulse Ox O2 Del Method 05/31/24 07:51 36.6 C 74 16 110/66 100 Room Air 05/31/24 06:42 74 05/31/24 03:37 36.3 C L 76 18 104/65 99 Room Air 05/30/24 23:45 75 05/30/24 23:37 36.4 C L 76 20 105/61 99 Room Air Laboratory Results 05/31/24 05/30/24 05/30/24 Range/Units 05:56 15:35 11:40 WBC 5.23 (4.8-10.8) K/ul RBC 3.17 L (4.20-5.40) M/uL Hgb 9.6 L 10.8 L (12.0-16.0) g/dl Hct 29.0 L 31.6 L (37.0-47.0) % MCV 91.5 (80.0-100.0) fL MCH 30.3 (25.0-34.0) pg MCHC 33.1 (32.0-36.0) g/dL RDW Std Deviation 46.7 H (36.4-46.3) fL RDW Coeff of Ritika 13.9 (11.5-14.5) % Plt Count 232 (130-400) K/uL MPV 9.6 (9.4-12.4) fL Sodium 143 (136-145) mmol/L Potassium 4.3 (3.5-5.1) mmol/L Chloride 111 H (98-107) mmol/L Carbon Dioxide 29 (21-32) mmol/L Anion Gap 3 (3-11) BUN 19 (6-23) mg/dl Creatinine 0.58 L (0.6-1.2) mg/dl Est Cr Clr Drug Dosing 81.7 ml/min eGFR 101.62 BUN/Creatinine Ratio 32.8 H (10-20) Glucose 102 H (70-99(Fasting)) mg/dl Calcium 8.9 (8.6-10.3) mg/dl POC Stool Occult Blood (Negative) Stl C. cayetanensis PCR Not Detected (NotDetected) Stool Rotavirus A PCR Not Detected (NotDetected) Stl Adenov F 40/41 PCR Not Detected (NotDetected) Stool Astrovirus (PCR) Not Detected (NotDetected) Stool Campylobacter PCR Not Detected (NotDetected) Stl C. diff Tox B Gene Negative Cdiff Gene (Neg) Stool Cryptosporidium PCR Not Detected (NotDetected) Stl E.coli Shiga Tox PCR Not Detected (NotDetected) Stl Enterotoxigenic E PCR Not Detected (NotDetected) Stool EPEC (PCR) Not Detected (NotDetected) Stool EAEC (PCR) Not Detected (NotDetected) Stl E. histolytica PCR Not Detected (NotDetected) Stool Giardia Lamblia PCR Not Detected (NotDetected) Stool Salmonella PCR Not Detected (NotDetected) Stool Sapovirus (PCR) Not Detected (NotDetected) Stl P. shigelloides PCR Not Detected (NotDetected) Stl Shigella/EIEC PCR Not Detected (NotDetected) St Y.enterocolitica PCR Not Detected (NotDetected) Stool Vibrio (PCR) Not Detected (NotDetected) Stl Vibrio cholerae PCR Not Detected (NotDetected) Stl Norovirus GI/GII PCR Not Detected (NotDetected) Adenovirus (PCR) (NotDetected) B. pertussis DNA (PCR) (NotDetected) B.parapertussis DNA PCR (NotDetected) C. pneumoniae DNA (PCR) (NotDetected) Coronavirus OC43 (PCR) (NotDetected) Coronavirus HKU1 (PCR) (NotDetected) Coronavirus 229E (PCR) (NotDetected) SARS-CoV-2 (PCR) (NotDetected) Coronavirus NL63 (PCR) (NotDetected) Human Metapneumovir PCR (NotDetected) Influenza Type A (PCR) (NotDetected) Influenza Type B (PCR) (NotDetected) M. pneumoniae (PCR) (NotDetected) Parainfluenza 1 (PCR) (NotDetected) Parainfluenza 2 (PCR) (NotDetected) Parainfluenza 3 (PCR) (NotDetected) Parainfluenza 4 (PCR) (NotDetected) RSV (PCR) (NotDetected) Entero/Rhino (PCR) (NotDetected) 05/30/24 05/30/24 Range/Units 11:04 10:44 WBC (4.8-10.8) K/ul RBC (4.20-5.40) M/uL Hgb (12.0-16.0) g/dl Hct (37.0-47.0) % MCV (80.0-100.0) fL MCH (25.0-34.0) pg MCHC (32.0-36.0) g/dL RDW Std Deviation (36.4-46.3) fL RDW Coeff of Ritika (11.5-14.5) % Plt Count (130-400) K/uL MPV (9.4-12.4) fL Sodium (136-145) mmol/L Potassium (3.5-5.1) mmol/L Chloride (98-107) mmol/L Carbon Dioxide (21-32) mmol/L Anion Gap (3-11) BUN (6-23) mg/dl Creatinine (0.6-1.2) mg/dl Est Cr Clr Drug Dosing ml/min eGFR BUN/Creatinine Ratio (10-20) Glucose (70-99(Fasting)) mg/dl Calcium (8.6-10.3) mg/dl POC Stool Occult Blood Positive A (Negative) Stl C. cayetanensis PCR (NotDetected) Stool Rotavirus A PCR (NotDetected) Stl Adenov F 40/41 PCR (NotDetected) Stool Astrovirus (PCR) (NotDetected) Stool Campylobacter PCR (NotDetected) Stl C. diff Tox B Gene (Neg) Stool Cryptosporidium PCR (NotDetected) Stl E.coli Shiga Tox PCR (NotDetected) Stl Enterotoxigenic E PCR (NotDetected) Stool EPEC (PCR) (NotDetected) Stool EAEC (PCR) (NotDetected) Stl E. histolytica PCR (NotDetected) Stool Giardia Lamblia PCR (NotDetected) Stool Salmonella PCR (NotDetected) Stool Sapovirus (PCR) (NotDetected) Stl P. shigelloides PCR (NotDetected) Stl Shigella/EIEC PCR (NotDetected) St Y.enterocolitica PCR (NotDetected) Stool Vibrio (PCR) (NotDetected) Stl Vibrio cholerae PCR (NotDetected) Stl Norovirus GI/GII PCR (NotDetected) Adenovirus (PCR) Not Detected (NotDetected) B. pertussis DNA (PCR) Not Detected (NotDetected) B.parapertussis DNA PCR Not Detected (NotDetected) C. pneumoniae DNA (PCR) Not Detected (NotDetected) Coronavirus OC43 (PCR) Not Detected (NotDetected) Coronavirus HKU1 (PCR) Not Detected (NotDetected) Coronavirus 229E (PCR) Not Detected (NotDetected) SARS-CoV-2 (PCR) Not Detected (NotDetected) Coronavirus NL63 (PCR) Not Detected (NotDetected) Human Metapneumovir PCR Not Detected (NotDetected) Influenza Type A (PCR) Not Detected (NotDetected) Influenza Type B (PCR) Not Detected (NotDetected) M. pneumoniae (PCR) Not Detected (NotDetected) Parainfluenza 1 (PCR) Not Detected (NotDetected) Parainfluenza 2 (PCR) Not Detected (NotDetected) Parainfluenza 3 (PCR) Not Detected (NotDetected) Parainfluenza 4 (PCR) Not Detected (NotDetected) RSV (PCR) Not Detected (NotDetected) Entero/Rhino (PCR) DETECTED A (NotDetected) PG Care Time/CCT Total # of Minutes Spent Total Time Spent with Patient: Total time spent is greater than 50% in coordination of care (as documented) at patient's floor/unit and/or counseling patient: Coding Level of Care Code 99020 SUB INP/OBS CARE 2/35MIN Diagnoses History of gastric bypass Z98.84
[2024-05-31] MEDS: ACETAMINOPHEN 325 MG TAB PO PRN (09:49)
[2024-05-31] MEDS: ONDANSETRON INJ 2 MG/ML 2 ML VIAL IV PRN (09:52)
[2024-05-31 11:27] VITALS: RESP 20
--- NOTE | 2024-05-31 14:25 | Discharge Summary ---
Discharge Summary Date of Service May 31, 2024 Principal Dx & Hospital Course #1 = Principal Diagnosis (1) Acute GI bleeding: Symptoms of hematochezia x 3 days and black tarry stool x 1 day; PMHx 2 gastric ulcers diagnosed approximately 4 to 5 months ago, s/p gastric bypass approximately 8 years ago; most recent admission for SBO. - Patient was evaluayted by GI. EGD yesterday w/o source of UGI bleeding. We discussed colonoscopy, she would prefer to have this done as an outpatient with her regular GI group at [facility] and she has had no further signs of GI bleeding and reported a brown stool last night. PO PPI. No NSAIDs. No Tobacco. No ETOH. As patient was hemodynamically stable, patient was discharged home. (2) Rhinovirus: Rhinorrhea, no F/C - Biofire (+) for entero/rhinovirus - Droplet precautions while here Plan Anxiety- Escitalopram, propranolol; continue ADD- Dextroamphetamine; continue OP- Alendronate sodium, weekly Uses medical marijuana, notes that she stopped this 1 day [employer] GUIDE [employer] as she was told it contributes to GI ulcers. Admission HPI Per Admitting Provider 63-year-old female presenting to ED for black, tarry stool x 1 day. ED course: CBC RBC 4.1L, H&H WNL, RDW 47.6; PT/INR WNL; CMP BUN 30, creatinine 0.59, BUN/creatinine ratio 50.8, glucose 125; stool occult blood positive; BioFire pending; CTAP no acute abnormalities to explain hematochezia, postsurgical changes of gastric bypass; EKG NSR, rate 84 bpm.; Provided with pantoprazole 40mg and famotidine 20mg in ED. Patient 63-year-old female PMHx s/p gastric bypass, prior GI ulcers, IBS, and anxiety most recent hospital course was 11/02-11/04 for SBO who is now presenting for 1 day of black tarry stools as well as 3 days of hematochezia. Patient states that approximately 3 days ago she noted that she was having darker than usual stool. Patient thought that this was secondary to her protein shake so she decided 1 day [employer]AVE GUIDE [employer] that she would stop the supplement to see if this would help with the discoloration in stool. Notes that it did not result in any changes in the appearance of her stool, in the morning of arrival she had a third episode of dark tarry stool that, when flushed, had blood streaking in the bowl. Patient states that this made her concerned and she decided to come to ED to be evaluated. Notes that she is also been having nausea x 1 day, and no true episodes of vomiting but has had some dry heaving producing mucus with these episodes. Has had associated dizziness when standing too fast, but admits to having poor oral intake over the past few days. Of note, patient has been awakening in the a.m. completely soaking her pajamas and the bed sheets. States that this has been happening for approximately 10 days. Has also had unintentional weight loss, stating that her weight has been around 119 pounds but she has not been trying to lose this weight it just seems to continue to decrease. Has had poor appetite for 3 to 4 days, as well as some sinus congestion. Denying chest pain, shortness of breath, palpitations, abdominal pain, diarrhea/constipation, numbness/tingling, fever or chills. Did not take a.m. medications. Has never had this happen before. Discharge Exam Constitutional: WD/WN, vitals as above Respiratory: normal respiratory effort, lungs clear to auscultation Cardiovascular: Rate/Rhythm: regular rate and regular rhythm Gastrointestinal (Abdomen): normal bowel sounds, soft, nontender, no hepatosplenomegaly Skin: no rashes, warm and dry Discharge Plan Discharge Items Patient Disposition: Home - Self-Care Reason For Visit: GI BLEED Discharge Diagnosis: GI bleed Activity: Resume your previous activity Non-emergency contact: Primary Care Provider Call non-emergency contact if: you have any medication questions Follow-up/Referrals: Harriett Borja, DO [Primary Care Provider] - (PLEASE CALL YOUR PRIMARY CARE PROVIDER TO SCHEDULE A HOSPITAL DISCHARGE FOLLOW-UP APPOINTMENT WITHIN 7-10 DAYS) Diet: Regular Ambulatory Orders: Complete Blood Count no Diff (Routine) Timeframe: [id number] Location: Determined by Patient Ordered By: Dexter Orourke Attending Provider Instructions: Recommend followup with PCP in 1 week. Recommend rechecking CBC in 2-3 days Recommend followup with Gastroenterology for outpatient colonoscopy Pending Studies at Discharge: No Stand-Alone Forms: Ge.tt, Smoking Cessation Medications and DC Order Prescriptions: New pantoprazole 40 mg tablet,delayed release (DR/EC) 40 mg PO DAILY Qty: 30 0RF Continued multivitamin Tablet 1 tab PO DAILY melatonin 10 mg Capsule 10 mg PO HS PRN (Reason: Sleep) alendronate 70 mg tablet 70 mg PO WK Rx Instructions: take for 28 days....ordered 10/14/23 escitalopram oxalate 20 mg tablet 20 mg PO DAILY propranolol 20 mg tablet 20 mg PO .EVERY 24 HOURS PRN (Reason: Anxiety) acetaminophen 325 mg Tablet 650 mg PO Q4H PRNQty: 0 0RF ondansetron 4 mg tablet,disintegrating 4 mg translingual Q6H PRN (Reason: nausea and vomiting) Qty: 14 0RF B12 1 tab PO DAILY Rx Instructions: otc unknown dose dextroamphetamine-amphetamine 10 mg tablet 5 mg PO .AFTERNOON PRN (Reason: Other) dextroamphetamine-amphetamine 10 mg tablet 10 mg PO QAM Vitamin D3 1 tab PO DAILY Rx Instructions: otc unknown dose iron 1 tab PO DAILY Rx Instructions: otc unknown dose Discharge Orders: Discharge Order (Routine); Ordered 05/31/24 Ordered By: Dexter Kiser Admission Data Admit Date/Time: 05/30/24 12:23 Attending Provider: Dexter Kiser Admit Provider: Jaylen Saenz Primary Care Provider: Harriett Borja Other Providers: Jaylen Saenz Other Interventions: Discharge Summary Assessment (RN) Last Done: 05/31/24 14:32 Hospital Stay Data Consultations 05/30/24 12:44 ED Decision to Admit Stat Procedures Performed Operation Date: 05/30/24 17:40 Actual Procedures p Esophagogastroduodenoscopy - Arturo Crump MD Diagnostic Imagining Performed 05/30/24 08:48 CT Abd and Pelvis [CT abd pelvis IV con only] Stat Pending Results Patient Have Any Pending Studies at Discharge: No Discharge Instructions Given to Patient (Per Discharging Provider) Recommend followup with PCP in 1 week. Recommend rechecking CBC in 2-3 days Recommend followup with Gastroenterology for outpatient colonoscopy Total Time Total Time Spent Total Time Spent (In Minutes): 32 Coding Level of Care Code 08193 INP/OBS DISCH >30 MIN Diagnoses Acute GI bleeding K92.2 Rhinovirus B34.8
[2024-05-31 14:44] VITALS: BP 112/66; PULSE 88; TEMP 98.2; O2SAT 99
[2024-05-31 14:55] LABS: Hematocrit (blood only) 29.4 % (37.0-47.0); Hemoglobin 9.9 g/dl (12.0-16.0)
[2024-05-31] MEDS: INFLUENZA VACC TS2024-25(6m+)/PF (IIV3) 0.5mL Syr IM ONE (15:25)
--- OUTSIDE RECORDS SUMMARY | 2024-05-31 16:00 | External Medical Summary | Summary of Care ---
Author Name Unknown Organization [facility] Address [address] [place] [address] Phone [phone] Care Team Providers Care Sand Polisher Name Role Phone Hugh Palencia MD Primary Care Provider [phone] Reason for Visit * Reason Onset Date Comments Pre Procedure Assessment 02/29/2024 Encounter Details Date Type Department Care Team (Late st Contact Info) Description 02/29/2024 Telephone Gastroenterology, [place] [address] [place] [address] Danielle Falcon MD [address] [place] [address] Pre Procedure Assessment Allergies Active Allergy Reactions Criticality Noted Date Comments Nsaids Other (Please comment) 02/29/2024 Gastric bypass-hx ulcer Bupropion Hcl Psych complications 03/21/2011 documented as of this encounter (statuses as of 05/30/2024) Medications LEXAPRO 20 MG PO TABS 1 [...] 24 HOURS ONLY NEEDED FOR ANXIETY Active documented as of this encounter (statuses as of 05/30/2024) Active Problems Problem Noted Date Diagnosed Date [...] as of this encounter (statuses as of 05/30/2024) Resolved Problems Problem Noted Date Diagnosed Date Resolved Date Obstructive sleep apnea 04/14/2011 060 12/2023 Overview (03/09/2017): 07/14/11 CPAP 11-15 cwp 07/07/11 CPAP 14-17 cwp, Quattro S 05/23/11 CPAP 9-15 cwp, Quattro FX Care Plus Oxygen ICD-10 update of inactive term Genetic Sleep Disorder Resea [facility] Other*[id number] 03/21/2011 01/03/2016 Esophagitis 01/14/2011 11/13/2023 Overview (03/09/2017): ICD-10 update of inactive term BMI 38.0-38.9 08/30/2009 11/13/2023 Overview (08/30/2009): Per Obesity Taxonomy ADVANCE DIRECTIVE INFORMATION 10/16/2006 03/21/2011 Overview (10/16/2006): No, Advance Directive brochure offered , patient declined. 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 Patient instructed to bring passenger coach driver. Instructed patient on which medications to take the day of the procedure, lexapro, sertraline with a few sips of water the morning of the procedure.Patient instructed to not eat after midnight. May have clear liquids up to 2 hours prior to procedure.Verbalized understanding.General anesthesia reviewed with patient and or family. Patient/ family verbalized understanding of information given.Patient instructed to not smoke, use any smokeless tobacco, chew any gum or have any candy/lozengers the morning of his procedure.Patient instructed to not wear any jewelry or use any lotion the day of her procedure. Denies any flu-like symptoms (cough,fever or shortness of breath)or traveling outside the [place] (by plane/cruise ship) in the past 14 days or coming in contact with anyone that has tested positive for the Coronavirus.Patient voiced no other concerns or questions at this time. documented in this encounter Plan of Treatment Upcoming Encounters Date Type Department Care Team (Late st Contact Info) Description 07/12/2024 8:30 AM EST Nurse Only Nutrition & Weight Management, [facility] [address] [place] [address] [facility], Nurse Gi Nutrition [facility] [address] [place] [address] 11/15/2024 11:45 AM EDT Office Visit General Surgery, [place] [address] [place] [address] Danielle Falcon MD [address] [place] [address] Health Maintenance Due Date Last Done Comments [...] and were consensually agreed upon. Care Teams Sand Polisher Relationship Specialty Start Date End Date Hugh Palencia MD [address] [facility] [place] [address] PCP - General Family Medicine 03/24/14 documented as of this encounter
== END 2024-05-31 15:34 | disposition home or self-care (01) ==
LOC: ED 08:11 → 2N 08:11 → SUATTDRO 12:23 → 2N 13:13